=== PATIENT | male | born 1970 | race Caucasian/White ===

== ENCOUNTER → 2020-05-15 08:26 | Outpatient (BNVA) | payer MEDICAID, SELFPAY | PROVIDERS: PCP Internal Medicine; Visit Provider Anesthesiology | DX: Z79.899 Other long term (current) drug therapy (principal) | CPT/HCPCS: 99213 ==

== ENCOUNTER → 2020-05-20 14:33 | Outpatient (BNVA) | payer OTHER, SELFPAY ==
--- NOTE | 2020-05-20 | FL_ITS ---
EXAMINATION: XR FLUOROSCOPY CLINICAL INFORMATION: Osteoarthritis of the left shoulder COMPARISON: 12/07/2016 TECHNIQUE: 5 AP spot images of the right shoulder were submitted FLUOROSCOPY TIME: 0.4 minutes DOSE AREA PRODUCT: 1.37 Gy-cm2 (arndt-centimeter squared) FINDINGS/IMPRESSION: Initial images demonstrate placement of the needle in the region of the superior subscapularis recess with contrast material outlining the recess and potentially the overlying subcoracoid bursa. Subsequent images demonstrate a needle terminating in the region of the greater tuberosity near the insertion of the infraspinatus and teres minor muscles with associated contrast injection.
== END ==
PROVIDERS: PCP Internal Medicine; Visit Provider Anesthesiology
DX: M19.012 Primary osteoarthritis, left shoulder (principal)
CPT/HCPCS: 64417; J3300; Q9967

== ENCOUNTER 2020-05-27 08:47 | Emergency (ER) | payer OTHER, SELFPAY ==
[2020-05-27 09:04] VITALS: BP 140/107; PULSE 90; RESP 20; TEMP 36.3; O2SAT 96; BMI 44.8
--- NOTE | 2020-05-27 09:10 | PC.NURSE ---
PT STATES HE IS ON A PAIN MANAGEMENT PROGRAM.
--- NOTE | 2020-05-27 09:34 | PC.NURSE ---
PT TRANSFERED TO MAIN ED FOR FURTHER WORK UP.
--- NOTE | 2020-05-27 09:42 | ECG_ITS ---
Test Reason : DIZZY Blood Pressure : / mmHG Vent. Rate : 083 BPM Atrial Rate : 083 BPM P-R Int : 158 ms QRS Dur : 090 ms QT Int : 362 ms P-R-T Axes : -11 015 051 degrees QTc Int : 425 ms Normal sinus rhythm Nonspecific ST abnormality Inferior leads When compared with ECG of 10-MAR-2020 20:03, No significant change was found Referred By: Lacy Russell Electronically Signed By:CONCHA MCNULTY MD
--- NOTE | 2020-05-27 09:42 | CT_ITS ---
EXAMINATION: CT CHEST WITHOUT CONTRAST CLINICAL INFORMATION: Fall. Trauma. COMPARISON: Previous chest CT April 2019 and chest x-ray February 2020 TECHNIQUE: Multidetector volumetric CT imaging of the chest was done. Axial MIP volume rendering provided. Sagittal and coronal reformatted images were obtained. This CT examination was performed using dose optimization techniques as appropriate, variously including the following: *Automated exposure control *Adjustment of mA and/or kV according to patient size (this includes techniques or standardized protocols for targeted exams where dose is matched to indication/reason for exam; i.e. extremities or head) *Use of iterative reconstruction technique DLP: 826 mGy-cm FINDINGS: GRADES 1 THRU 6 HOME TEACHER: Unremarkable LUNGS: There is a 2 mm calcified left lower lobe nodule axial image 306 series 4 that is stable. There is subsegmental atelectasis at the lung bases. The lungs are otherwise clear. MEDIASTINUM: The heart does not appear enlarged. There is no pericardial effusion. There is minimal coronary artery calcification. The thoracic aorta is normal in caliber. There are no enlarged hilar or mediastinal lymph nodes. PLEURA: There is no pleural effusion. No pleural mass or thickening. AXILLA: No lymphadenopathy. UPPER ABDOMEN: Unremarkable. OSSEOUS STRUCTURES: There are degenerative changes of the spine. IMPRESSION: Small calcified left lower lobe nodule probably representing a calcified granuloma. Subsegmental atelectasis at the lung bases. The
--- NOTE | 2020-05-27 09:53 | ED_ITS ---
HPI - Back Pain/Injury General Chief Complaint: Dizziness Stated Complaint: back pain Time Seen by Provider: 05/27/20 09:18 Source: patient Mode of arrival: ambulatory Limitations: no limitations History of Present Illness HPI Narrative: 49-year-old male with a past medical history of anxiety, arthritis, COPD, degenerative joint disease, depression, gout, high cholesterol, hypertension, morbid obesity here with left upper back pain. The patient tells me on Tuesday he went to stand up and felt dizzy and fell forwards landing on his knees. He believes he hit his back on a table next to the couch. He did not hit his head or lose consciousness. He is not on anticoagulation. He is here with continued pain in the left upper back. He does have some shortness of breath which tells me is chronic for him and is unchanged from baseline. No cough, fevers or chills. He no longer feels dizzy. MD elicited complaint: back injury Pertinent past history: prior back pain and recent trauma Onset (ago): day(s) (3 days) Timing: constant Severity: moderate Similar Symptoms Previously: No Quality: throbbing Location: left upper back Radiation: none Exacerbating factors: movement, deep breaths and coughing/sneezing Relieving factors: immobilization Context: fall Associated symptoms: denies other symptoms Work related injury: No Related Data Home Medications Medication Instructions Recorded Confirmed bupropion HCl 100 mg tablet,12 hr 100 mg PO DAILY 05/17/20 05/20/20 sustained-release clotrimazole 1 % topical cream 1 applic TOPICAL BID 05/17/20 05/20/20 diphenhydramine HCl 25 mg capsule 25 mg PO Q6H PRN 05/17/20 05/20/20 fluticasone propionate 110 1 puff INHALATION Q12H 05/17/20 05/20/20 mcg/actuation HFA aerosol inhaler fluticasone propionate 50 1 spray INTRANASAL DAILY 05/17/20 05/20/20 mcg/actuation nasal spray,suspension magnesium oxide 400 mg PO DAILY 05/17/20 05/20/20 omeprazole 20 mg tablet,delayed 20 mg PO DAILY 05/17/20 05/20/20 release oxycodone 5 mg capsule 5 mg PO TID PRN 05/17/20 05/20/20 trazodone 100 mg tablet 100 mg PO BEDTIME PRN 05/17/20 05/20/20 venlafaxine 75 mg capsule,extended 75 mg PO BEDTIME 05/17/20 05/20/20 release 24 hr Previous Rx's Medication Instructions Recorded cyclobenzaprine 10 mg PO Q8H PRN #20 tab 05/27/20 lidocaine [Lidoderm] 1 patch TOPICAL DAILY #15 ea 05/27/20 naproxen 500 mg PO BID #20 tab 05/27/20 Allergies Allergy/AdvReac Type Severity Reaction Status Date / Time prednisone Allergy Unknown itching Verified 04/09/20 00:00 Vicodin Allergy Unknown nausea and Uncoded 04/09/20 00:00 vomiting From VICODIN AdvReac Mild STOMACH Uncoded 05/01/20 15:26 UPSET Review of Systems Review of Systems: Yes all other systems are reviewed and are negative Constitutional: Constitutional: Reports no additional constitutional complaints, Denies body ache(s), Denies chills, Denies fever(s), Denies headache(s) and Denies weakness Eyes: Eyes: Reports no additional eye complaints and Denies change in vision ENT: Reports system reviewed and no additional complaints, except as documented, Denies dizziness, Denies headache(s), Denies nasal congestion, Denies nasal discharge and Denies neck pain Cardiovascular: Cardiovascular: Reports no additional cardiovascular complaints, Denies chest pain, Denies leg edema and Denies dyspnea Respiratory: Respiratory: Reports no additional respiratory complaints, Denies cough and Denies dyspnea Gastrointestinal: Gastrointestinal: Reports no additional gastrointestinal complaints, Denies abdominal pain, Denies diarrhea, Denies nausea and Denies vomiting Genitourinary: Genitourinary: Denies urinary incontinence Musculoskeletal: Musculoskeletal: Reports no additional musculoskeletal complaints, Reports back pain, Denies arthralgias, Denies joint swelling, Denies neck pain, Denies numbness and Denies tingling Integumentary/Breasts: Skin/Breast: Reports system reviewed and no additional complaints, except as docu and Denies rash Neurologic: Reports system reviewed and no additional complaints, except as documented, Denies Abnormal speech present, Denies dizziness, Denies headache(s), Denies numbness, Denies tingling and Denies weakness PMFSH Past Medical History Attestation statement: The following information was validated with the patient. Source: nursing notes reviewed Medical History Anxiety Arthritis Asthma COPD (chronic obstructive pulmonary disease) Degenerative joint disease of low back Depression Emphysema of lung Gout Hiatal hernia Hypercholesterolemia Hypertension Morbid obesity Neuropathy Polyarthralgia Sciatica Family History Family History Father No problems noted. Mother Arthritis of knee Sister Obesity Son No problems noted. Daughter Psoriasis Manic depression Social History Social History Alcohol intake: current Alcohol intake frequency: holidays/special occasions only Alcohol type: beer Smoking Status: Current some day smoker Use of substances other than those prescribed or required for medical reasons: No Advance Directives: No Advance Directives Information Provided: Yes Physical Exam Vital Signs: Vital Signs: Vital Signs Temp Pulse Resp BP Pulse Ox 05/27/20 12:48 82 160/88 H 05/27/20 09:04 97.3 F 90 20 140/107 H 96 Body Mass Index 44.8 Const: Other: In pain General: cooperative, healthy appearing, comfortable and anxious Orientation/consciousness: patient oriented x3 Limitations: no limitations HENMT: Head: Yes normal to inspection Ears: hearing grossly normal bilaterally General nose exam: Normal external nose present Face and sinus: Yes normal facial exam Mouth: Normal oral and palatal mucosa present Throat: Yes posterior oropharynx normal Eyes: General: appearance normal, both eyes and all related structures Pupils: Equal, round and reactive pupils present Neck: Neck: Yes normal visual inspection Chest: Chest palpation & inspection: normal inspection of the chest Resp: Effort & Inspection: normal respiratory effort Auscultation: clear to auscultation bilaterally Cardio: Rate: regular rate Rhythm: regular rhythm Peripheral pulses: Peripheral pulses 2+ throughout GI: Inspection: Yes normal to inspection Palpation (GI): Soft to palpation and nontender Auscultation: normal bowel sounds Back/Spine/Pelvis: Other: Left upper and posterior ribs tender to palpation with no deformity, ecchymosis, crepitus. No midline tenderness over the spine. Thoracic/Lumbar Spine: thoracic and lumbar spine normal to inspection Skin: General skin exam: no rashes or lesions noted Neuro: General: patient oriented x3, no focal motor deficits and normal sensation to monofilament Cranial nerves: Yes Equal, round and reactive pupils present Cognition (Neuro): normal cognition Speech: No Abnormal speech present Gait exam (Neuro): Normal gait present Motor exam (neuro): 5/5 motor strength present throughout Extrem: General: Yes normal to inspection Course Course Course Narrative: Patient here with left upper back and rib pain status post mechanical fall. He does however tell me he had some mild dizziness prior to the fall. Will need labs, EKG, CT chest. 1415- Repeat magnesium and sodium improved after receiving her placement here in the ER. Imaging unremarkable and additional labs unremarkable. Patient reports feeling improved after receiving analgesia here and likely has a lumbar strain. Reviewed worrisome signs and symptoms and when to return to the emergency department. Comfortable discharge home. MDM - Back Pain/Injury MDM Narrative Medical decision making narrative: left posterior rib pain and upper back pain status post fall 3 days ago. Patient tells me he had dizziness with standing. There was no head injury or loss of consciousness. Will need imaging of chest To rule out underlying fracture /pulmonary contusion. Patient will also need labs, EKG, orthostatics to rule out underlying cause of dizziness. Considered ACS/NSTEMI, electrolyte abnormality, orthostasis, anemia. 1400- Less likely ACS with unremarkable EKG and troponin and symptoms greater than 3 days. Orthostatics negative. Labs show mild hyponatremia and hypo magnesium anemia which is improved with normal saline and IV magnesium. CT chest unremarkable for underlying pulmonary contusion or rib fracture. Lab Data Result diagrams: 05/27/20 10:05/27/20 12:44 Labs: Lab Results 05/27/20 05/27/20 05/27/20 Range/Units 10:22 10:22 10:22 WBC 16.0 H (4.8-10.8) X10*3/uL RBC 4.03 L (4.60-5.80) X10*6/uL Hgb 12.3 L (14.0-18.0) g/dl Hct 37.3 L (42-52) % MCV 92.6 (80-98) fL MCH 30.5 (27.0-33.0) pg MCHC 33.0 (31.0-36.0) g/dl RDW 12.6 (11.0-16.0) % Plt Count 328 (160-400) X10*3/uL MPV 9.3 L (9.4-12.4) fL Immature Gran % (Auto) 0.6 H (0.0-0.4) % Neut % (Auto) 75.1 H (45-73) % Lymph % (Auto) 14.9 L (20-40) % [place] % (Auto) 8.4 (2-11) % Eos % (Auto) 0.6 (0-4) % Baso % (Auto) 0.4 (0-2) % Lymph # (Auto) 2.4 (1.2-4.9) X10*3/uL [place] # (Auto) 1.4 H (0.1-1.2) X10*3/uL Eos # (Auto) 0.1 (0.0-0.4) X10*3/uL Baso # (Auto) 0.1 (0.0-0.2) X10*3/uL Abs Immat Gran (auto) 0.10 H (0.00-0.03) X10*3/uL Absolute Neuts (auto) 12.0 H (2.0-8.3) X10*3/uL Absolute Nucleated RBC 0.000 (0.0-0.012) X10*3/uL Nucleated RBC % (auto) 0.0 (0.0-0.2) /100WBC Hold Blue Top SEE NOTE Sodium 128 L (135-145) mmol/L Potassium 4.2 (3.3-5.1) mmol/l Chloride 96 (96-108) mmol/L Carbon Dioxide 23 (22-29) mmol/L Anion Gap 13 (12-20) BUN 24 H (9-16) mg/dL Creatinine 1.01 (0.5-1.4) mg/dL Estim Creat Clear Calc 137.8 Estimated GFR > 60 Random Glucose 106 (60-115) mg/dL Calcium 8.6 (8.4-10.2) mg/dL Magnesium 1.5 L (1.6-2.6) mg/dL Total Bilirubin 1.0 (0.0-1.0) mg/dL Direct Bilirubin 0.4 (0.0-0.5) mg/dL AST 32 (5-37) U/L ALT 35 (0-40) U/L Alkaline Phosphatase 111 (39-117) U/L Troponin I High Sens (<3.5-35.0) ng/L Total Protein 7.4 (6.5-8.0) g/dL Albumin 4.2 (3.5-5.0) g/dL 05/27/20 05/27/20 Range/Units 10:22 12:44 WBC (4.8-10.8) X10*3/uL RBC (4.60-5.80) X10*6/uL Hgb (14.0-18.0) g/dl Hct (42-52) % MCV (80-98) fL MCH (27.0-33.0) pg MCHC (31.0-36.0) g/dl RDW (11.0-16.0) % Plt Count (160-400) X10*3/uL MPV (9.4-12.4) fL Immature Gran % (Auto) (0.0-0.4) % Neut % (Auto) (45-73) % Lymph % (Auto) (20-40) % [place] % (Auto) (2-11) % Eos % (Auto) (0-4) % Baso % (Auto) (0-2) % Lymph # (Auto) (1.2-4.9) X10*3/uL [place] # (Auto) (0.1-1.2) X10*3/uL Eos # (Auto) (0.0-0.4) X10*3/uL Baso # (Auto) (0.0-0.2) X10*3/uL Abs Immat Gran (auto) (0.00-0.03) X10*3/uL Absolute Neuts (auto) (2.0-8.3) X10*3/uL Absolute Nucleated RBC (0.0-0.012) X10*3/uL Nucleated RBC % (auto) (0.0-0.2) /100WBC Hold Blue Top Sodium 131 L (135-145) mmol/L Potassium 4.2 (3.3-5.1) mmol/l Chloride 98 (96-108) mmol/L Carbon Dioxide 24 (22-29) mmol/L Anion Gap 13 (12-20) BUN 24 H (9-16) mg/dL Creatinine 1.03 (0.5-1.4) mg/dL Estim Creat Clear Calc 135.1 Estimated GFR > 60 Random Glucose 103 (60-115) mg/dL Calcium 8.8 (8.4-10.2) mg/dL Magnesium 2.8 H (1.6-2.6) mg/dL Total Bilirubin (0.0-1.0) mg/dL Direct Bilirubin (0.0-0.5) mg/dL AST (5-37) U/L ALT (0-40) U/L Alkaline Phosphatase (39-117) U/L Troponin I High Sens < 3.5 (<3.5-35.0) ng/L Total Protein (6.5-8.0) g/dL Albumin (3.5-5.0) g/dL Imaging Data ct chest: Attestation: I personally reviewed and interpreted this imaging study as follows: My impression: unremarkable Radiologist's impression: EXAMINATION: CT CHEST WITHOUT CONTRAST CLINICAL INFORMATION: Fall. Trauma. COMPARISON: Previous chest CT April 2019 and chest x-ray February 2020 TECHNIQUE: Multidetector volumetric CT imaging of the chest was done. Axial MIP volume rendering provided. Sagittal and coronal reformatted images were obtained. This CT examination was performed using dose optimization techniques as appropriate, variously including the following: *Automated exposure control *Adjustment of mA and/or kV according to patient size (this includes techniques or standardized protocols for targeted exams where dose is matched to indication/reason for exam; i.e. extremities or head) *Use of iterative reconstruction technique DLP: 826 mGy-cm FINDINGS: SOLAR INSTALLER: Unremarkable LUNGS: There is a 2 mm calcified left lower lobe nodule axial image 306 series 4 that is stable. There is subsegmental atelectasis at the lung bases. The lungs are otherwise clear. MEDIASTINUM: The heart does not appear enlarged. There is no pericardial effusion. There is minimal coronary artery calcification. The thoracic aorta is normal in caliber. There are no enlarged hilar or mediastinal lymph nodes. PLEURA: There is no pleural effusion. No pleural mass or thickening. AXILLA: No lymphadenopathy. UPPER ABDOMEN: Unremarkable. OSSEOUS STRUCTURES: There are degenerative changes of the spine. IMPRESSION: Small calcified left lower lobe nodule probably representing a calcified granuloma. Subsegmental atelectasis at the lung bases. The ECG Data Attestation: I personally reviewed and interpreted this ECG as follows: ECG interpretation date: 05/27/20 ECG interpretation time: 10:04 Interpretation: EKG shows normal sinus rhythm. Normal EKG. Normal p.r.. Normal QRS. Normal QT. No ST changes Discharge Plan Discharge Clinical Impression: Lumbar strain, Hypomagnesemia, Hyponatremia Patient Disposition: Home, Self-Care Instructions: Low Back Strain (ED) Additional Instructions: Heat or ice gentle stretching no heavy lifting or bending Prescriptions: New lidocaine [Lidoderm] 5 % adhesive patch,medicated 1 patch topical DAILY Qty: 15 RF: 0 naproxen 500 mg tablet 500 mg PO BID Qty: 20 RF: 0 cyclobenzaprine 10 mg tablet 10 mg PO Q8H PRN (Reason: muscle spasm) Qty: 20 RF: 0 No Action magnesium oxide 400 mg magnesium capsule 400 mg PO DAILY RF: 0 oxycodone 5 mg capsule 5 mg PO TID PRNRF: 0 bupropion HCl [Wellbutrin SR] 100 mg tablet sustained-release 12 hr 100 mg PO DAILY RF: 0 fluticasone propionate 50 mcg/actuation spray,suspension 1 spray intranasal DAILY RF: 0 Flovent HFA 110 mcg/actuation HFA aerosol inhaler 1 puff inhalation Q12H RF: 0 omeprazole 20 mg tablet,delayed release (DR/EC) 20 mg PO DAILY RF: 0 diphenhydramine HCl [Banophen] 25 mg capsule 25 mg PO Q6H PRNRF: 0 clotrimazole 1 % cream 1 applic topical BID RF: 0 trazodone 100 mg tablet 100 mg PO BEDTIME PRNRF: 0 venlafaxine [Effexor XR] 75 mg capsule,extended release 24hr 75 mg PO BEDTIME RF: 0 Referrals: Kaykay Rivas MD [Primary Care Provider] - 2 days Interventions: ED Discharge Assessment Last Done: 05/27/20 13:46 Discharge Date/Time: 05/27/20 13:57
[2020-05-27] MEDS: oxyCODONE HCl Immed Release 5 MG TABLET PO (10:04)
[2020-05-27] MEDS: Lidocaine 4 % Patch ADH..PATCH 1 PATCH TRANSDERMA (10:05)
[2020-05-27] MEDS: Cyclobenzaprine HCl 10 MG TABLET PO (10:14)
[2020-05-27 10:27] LABS: MANUAL DIFF FLAG NO
[2020-05-27 10:28] LABS: Basophils Absolute Auto 0.1 X10*3/uL (0.0-0.2); Basophils Percent Auto 0.4 % (0-2); Eosinophils Absolute Auto 0.1 X10*3/uL (0.0-0.4); Eosinophils Percent Auto 0.6 % (0-4); Hematocrit 37.3 % (42-52); Hemoglobin 12.3 g/dl (14.0-18.0); Imm Gran Pct Auto 0.6 % (0.0-0.4); Lymphocytes Absolute Auto 2.4 X10*3/uL (1.2-4.9); Lymphocytes Percent Auto 14.9 % (20-40); Mean Corpuscular Hemoglobin 30.5 pg (27.0-33.0); Mean Corpuscular Volume 92.6 fL (80-98); Mean Platelet Volume 9.3 fL (9.4-12.4); Monocytes Absolute Auto 1.4 X10*3/uL (0.1-1.2); Monocytes Percent Auto 8.4 % (2-11); Neutrophils Percent Auto 75.1 % (45-73); Platelet Count 328 X10*3/uL (160-400); Red Blood Count 4.03 X10*6/uL (4.60-5.80); Red Cell Distribution Width 12.6 % (11.0-16.0)
--- NOTE | 2020-05-27 10:57 | PC.NURSE ---
PT RETURN FROM CT SCAN VIA STRETCHER
[2020-05-27 11:02] LABS: Alanine Aminotransferase 35 U/L (0-40); Albumin Level 4.2 g/dL (3.5-5.0); Alkaline Phosphatase 111 U/L (39-117); Anion Gap 13 (12-20); Aspartate Amino Transferase 32 U/L (5-37); Bilirubin Direct 0.4 mg/dL (0.0-0.5); Blood Urea Nitrogen 24 mg/dL (9-16); Calcium 8.6 mg/dL (8.4-10.2); Carbon Dioxide 23 mmol/L (22-29); Chloride 96 mmol/L (96-108); Creatinine Clr Calc Pharmacy 137.8; Estimated Glomerular Filt Rate > 60; Glucose Random 106 mg/dL (60-115); Magnesium 1.5 mg/dL (1.6-2.6); Potassium 4.2 mmol/l (3.3-5.1); Sodium 128 mmol/L (135-145); Total Protein 7.4 g/dL (6.5-8.0)
[2020-05-27 11:09] LABS: Troponin-I High Sensitivity < 3.5 ng/L (<3.5-35.0)
[2020-05-27] MEDS: Magnesium Sulfate/H2O 2 GM/50 ML PIGGYBACK IV (11:16)
[2020-05-27 12:48] VITALS: BP 160/88; PULSE 82
[2020-05-27 13:14] LABS: Anion Gap 13 (12-20); Blood Urea Nitrogen 24 mg/dL (9-16); Calcium 8.8 mg/dL (8.4-10.2); Carbon Dioxide 24 mmol/L (22-29); Chloride 98 mmol/L (96-108); Creatinine Clr Calc Pharmacy 135.1; Estimated Glomerular Filt Rate > 60; Glucose Random 103 mg/dL (60-115); Potassium 4.2 mmol/l (3.3-5.1); Sodium 131 mmol/L (135-145)
[2020-05-27 13:34] LABS: Magnesium 2.8 mg/dL (1.6-2.6)
== END 2020-05-27 13:57 | disposition home or self-care (01) ==
PROVIDERS: Nurse Practitioner Family; Emergency Provider Emergency Medicine; PCP Internal Medicine
DX: S39.012A Strain of muscle, fascia and tendon of lower back, initial encounter (principal); W07.XXXA Fall from chair, initial encounter; E83.42 Hypomagnesemia; E87.1 Hypo-osmolality and hyponatremia; R42 Dizziness and giddiness; I10 Essential (primary) hypertension; F17.200 Nicotine dependence, unspecified, uncomplicated; Y93.89 Activity, other specified; Y92.019 Unspecified place in single-family (private) house as the place of occurrence of the external cause; Y99.9 Unspecified external cause status
CPT/HCPCS: 36415; 71250; 80048; 80076; 83735; 84484; 85025; 93005; 96365; 96366; 99284; J3475

== ENCOUNTER → 2020-06-16 16:20 | Outpatient (BNVA) | payer OTHER, SELFPAY | PROVIDERS: PCP Internal Medicine; Visit Provider Anesthesiology | DX: M19.012 Primary osteoarthritis, left shoulder (principal); M19.011 Primary osteoarthritis, right shoulder; M17.0 Bilateral primary osteoarthritis of knee; Z79.891 Long term (current) use of opiate analgesic | CPT/HCPCS: 99212 ==

== ENCOUNTER 2020-06-25 10:19 | Outpatient (REF) | payer OTHER, SELFPAY ==
--- NOTE | 2020-06-25 13:09 | MHC.AU.P13 ---
Hearing Aid Evaluation- Binaural Date of Visit: 06/25/2020 Booster Pump Operator Used: Not Applicable Description of Hearing: Normal hearing thresholds from 250-2000 Hz, dropping to a symmetrical moderate high frequency sensorineural hearing loss bilaterally. Hearing Instrument Selection: Right Ear: Roller Setter: Phonak Model: Audeo M 70-R Battery Size: Rechargeable Color: Graphite Acevedo Product Assurance Engineer: #2 Medium Type of Dome: Medium Open Left Ear: Roller Setter: Phonak Model: Audeo M 70-R Battery Size: Rechargeable Color: Graphite Acevedo Product Assurance Engineer: #2 Medium Type of Dome: Medium Open Recommendations: Recommendations: Medical Clearance and Audiogram provided by ENT Dr. Mohan Alvarez. Discussed realistic expectations of hearing aids, the need to wear aids everyday, all day. [facility] prior hearing aid history faxed.' Due to patient's significant dexterity problems related to hand surgery and arthritis, as well as perspiration, recommend rechargeable hearing aids. Scheduled HAF for 07/09/2020 Diagnosis Code(s): Primary Diagnosis: H90.3 Bilateral Sensorineural Hearing Loss Secondary Diagnosis: H93.13 Tinnitus, Bilateral Services Performed: Hearing Aid Evaluation: Signature: Provider: Juanita Mo, [facility]
== END 2020-06-25 10:20 | disposition home or self-care (01) ==
LOC: HO.HAP 10:19
PROVIDERS: PCP Internal Medicine; Referring Provider Internal Medicine; Visit Provider Internal Medicine
DX: Z46.1 Encounter for fitting and adjustment of hearing aid (principal)
CPT/HCPCS: 92591

== ENCOUNTER → 2020-06-30 08:23 | Outpatient (BNVA) | payer OTHER, SELFPAY | PROVIDERS: PCP Internal Medicine; Visit Provider Anesthesiology | DX: M19.012 Primary osteoarthritis, left shoulder (principal); M19.011 Primary osteoarthritis, right shoulder; M17.0 Bilateral primary osteoarthritis of knee; Z79.891 Long term (current) use of opiate analgesic | CPT/HCPCS: 99212 ==

== ENCOUNTER 2020-07-09 09:54 | Outpatient (REF) | payer MEDICAID, SELFPAY | END 2020-07-09 09:55 | disposition home or self-care (01) | LOC: HO.HAP 09:54 | PROVIDERS: PCP Internal Medicine; Referring Provider Internal Medicine; Visit Provider Internal Medicine | DX: Z46.1 Encounter for fitting and adjustment of hearing aid (principal) | CPT/HCPCS: 92595; V5011; V5020; V5160; V5261 ==

== ENCOUNTER → 2020-07-28 08:32 | Outpatient (BNVA) | payer MEDICAID, SELFPAY | PROVIDERS: PCP Family Medicine; Visit Provider Anesthesiology | DX: M19.012 Primary osteoarthritis, left shoulder (principal); M19.011 Primary osteoarthritis, right shoulder; F11.90 Opioid use, unspecified, uncomplicated; M17.0 Bilateral primary osteoarthritis of knee | CPT/HCPCS: 99212 ==

== ENCOUNTER → 2020-08-28 08:26 | Outpatient (BNVA) | payer MEDICAID, SELFPAY | PROVIDERS: PCP Family Medicine; Visit Provider Anesthesiology | DX: F11.90 Opioid use, unspecified, uncomplicated (principal); M19.012 Primary osteoarthritis, left shoulder; M17.0 Bilateral primary osteoarthritis of knee; M19.011 Primary osteoarthritis, right shoulder | CPT/HCPCS: 99212 ==

== ENCOUNTER 2020-09-09 06:27 | Outpatient (REF) | payer MEDICAID, SELFPAY ==
--- NOTE | 2020-09-09 07:35 | FL_ITS ---
EXAMINATION: XR FLUOROSCOPY WITH IMAGES CLINICAL INFORMATION: M19.012 - Primary osteoarthritis, left shoulder COMPARISON: None. TECHNIQUE: Fluoroscopy performed by Shalini Stanley NP. Fluoroscopy time: 0.5 minutes DAP: 2.34 Gycm2 Images: 2 FINDINGS: There are needles overlying the superomedial aspect bilateral shoulder joints from posterior approach with contrast adjacent to the needle tip, likely early intracapsular. FL/FL guidance in treatment room IMPRESSION: Fluoroscopy for pain management procedures.
== END 2020-09-09 06:28 | disposition home or self-care (01) ==
LOC: HO.RADIR 06:27
PROVIDERS: Visit Provider Anesthesiology
DX: M19.012 Primary osteoarthritis, left shoulder (principal); M17.0 Bilateral primary osteoarthritis of knee; M19.011 Primary osteoarthritis, right shoulder; F11.90 Opioid use, unspecified, uncomplicated; F17.200 Nicotine dependence, unspecified, uncomplicated
CPT/HCPCS: 20610; J3300; Q9967

== ENCOUNTER 2020-09-10 08:58 | Outpatient (REF) | payer MEDICAID, SELFPAY ==
--- NOTE | 2020-09-10 09:23 | XR_ITS ---
EXAMINATION: XR HAND, RIGHT CLINICAL INFORMATION: Right hand pain. COMPARISON: Right hand radiographs dated 03/28/2017. TECHNIQUE: PA, lateral, and oblique views of the right hand. FINDINGS: No acute fracture or dislocation. Chronic deformity at the base of the 2nd proximal phalanx with associated orthopedic screws, consistent with a remote fracture. Complete osseous bridging across the previously seen fracture line. Moderate degenerative arthritis at the 1st carpometacarpal joint with more mild degenerative arthritis at the triscaphe joint. Degenerative changes scattered throughout the metacarpophalangeal and interphalangeal joints, most prominent at the 1st and 3rd metacarpophalangeal joints, slightly progressed when compared to the prior examination. XR/XR hand RT min 3V IMPRESSION: Healed fracture with associated orthopedic screws at the base of the 2nd proximal phalanx. No evidence of hardware complication. Mild degenerative arthritis at the 1st carpometacarpal joint as well as more mild degenerative arthritis at the triscaphe joint. Additional degenerative arthritis scattered throughout the metacarpophalangeal and interphalangeal joints. Findings have slightly progressed when compared to the prior examination.
== END 2020-09-10 08:59 | disposition home or self-care (01) ==
LOC: HO.HOSX 08:58
PROVIDERS: PCP Internal Medicine; Visit Provider Orthopaedic Surgery
DX: M25.541 Pain in joints of right hand (principal)
CPT/HCPCS: 73130

== ENCOUNTER → 2020-09-17 10:20 | Outpatient (BNVA) | payer MEDICAID, SELFPAY | PROVIDERS: PCP Internal Medicine; Visit Provider Physician Assistant ==

== ENCOUNTER 2020-09-30 11:20 | Outpatient (REF) | payer MEDICAID, SELFPAY ==
--- NOTE | ~2020-09-30 | US_ITS ---
EXAMINATION: US RETROPERITONEAL LIMITED (RENAL ONLY) CLINICAL INFORMATION: Unspecified abdominal pain. COMPARISON: CT abdomen and pelvis 09/12/2019. TECHNIQUE: Real-time imaging of the kidneys. FINDINGS: RIGHT KIDNEY: 13.8 x 5.8 x 5.2 cm (SAG x AP x TRV). The kidney is normal in size, contour, and echogenicity. Renal cortical thickness is normal. No calculi or focal parenchymal lesions. No hydronephrosis. LEFT KIDNEY: 11.8 x 6.7 x 6.4 cm (SAG x AP x TRV). The kidney is normal in size, contour, and echogenicity. Renal cortical thickness is normal. No renal calculi or hydronephrosis. There is a small cyst interpolar region measuring under 2 cm. US/US renal BI IMPRESSION: 1. No hydronephrosis or calculi. 2. Small cyst left kidney, 1.9 x 1.5 x 1.7 cm.
== END 2020-09-30 11:21 | disposition home or self-care (01) ==
LOC: HO.US 11:20
PROVIDERS: PCP Internal Medicine; Visit Provider Internal Medicine
DX: R10.9 Unspecified abdominal pain (principal)
CPT/HCPCS: 76775

== ENCOUNTER → 2020-10-01 08:09 | Outpatient (BNVA) | payer MEDICAID, SELFPAY | PROVIDERS: PCP Internal Medicine Rheumatology; Visit Provider Anesthesiology | DX: F11.90 Opioid use, unspecified, uncomplicated (principal); M19.012 Primary osteoarthritis, left shoulder; M17.0 Bilateral primary osteoarthritis of knee; M19.011 Primary osteoarthritis, right shoulder | CPT/HCPCS: 99212 ==

== ENCOUNTER 2020-10-09 19:09 | Emergency (ER) | payer MEDICAID, SELFPAY ==
--- NOTE | ~2020-10-09 | CT_ITS ---
EXAMINATION: CT ANGIOGRAM OF THE CHEST WITH AND WITHOUT CONTRAST (CT PULMONARY ANGIOGRAM FOR PE) CLINICAL INFORMATION: Reason for Exam Tachypnea, tachycardia, elevated D-dimer COMPARISON: 05/27/2020 TECHNIQUE: Prior to contrast administration, noncontrast localization images were obtained. Subsequently, multidetector volumetric imaging was performed from the thoracic inlet to below the diaphragms following the administration of 130 mL Omnipaque 350 intravenous contrast. 2 acquisitions were performed. No contrast reaction reported Sagittal, coronal, and MIP oblique sagittal reformatted images were obtained on the CT workstation, uploaded to PACS, and reviewed. This CT examination was performed using dose optimization techniques as appropriate, variously including the following: *Automated exposure control *Adjustment of mA and/or kV according to patient size (this includes techniques or standardized protocols for targeted exams where dose is matched to indication/reason for exam; i.e. extremities or head) *Use of iterative reconstruction technique Total exam dose-length product 1261 mGy-cm FINDINGS: QUALITY OF STUDY/CONTRAST BOLUS: Satisfactory. PULMONARY ARTERIES: No central or segmental pulmonary emboli. THORACIC AORTA: No aneurysm or dissection. LUNG: No focal consolidation, nodules or masses. The central airways are patent. PLEURA: No pleural effusion or pneumothorax. MEDIASTINUM: Normal heart size. No pericardial effusion. No hilar or mediastinal lymphadenopathy. No evidence of septal bowing or right heart strain. CHEST WALL/AXILLA: No axillary or internal mammary lymphadenopathy. Gynecomastia. OSSEOUS STRUCTURES: No acute or suspicious osseous abnormality. Mild degenerative changes of the spine. UPPER ABDOMEN: Unremarkable. No reflux of contrast into the hepatic veins to suggest elevated right heart pressures. CT/CT angio chest PE protocol IMPRESSION: No pulmonary embolism or other acute intrathoracic abnormality. VTE: negative
[2020-10-09 19:16] VITALS: BP 126/83; PULSE 106; RESP 24; TEMP 36.6; O2SAT 97; BMI 42.0
--- NOTE | 2020-10-09 19:18 | ECG_ITS ---
Test Reason : DYSPNEA Blood Pressure : / mmHG Vent. Rate : 092 BPM Atrial Rate : 092 BPM P-R Int : 174 ms QRS Dur : 090 ms QT Int : 436 ms P-R-T Axes : 008 018 065 degrees QTc Int : 539 ms Normal sinus rhythm ST & T wave abnormality, consider lateral ischemia Abnormal ECG When compared with ECG of 27-MAY-2020 10:04, ST now depressed in Anterior leads T wave inversion now evident in Lateral leads QT has lengthened Referred By: Shashank Reynoso Electronically Signed By:BRITTANY RIBERA MD
--- NOTE | 2020-10-09 19:29 | ED.ALCOHOL ---
HPI - Alcohol General Chief Complaint: ETOH/Substance Use Stated Complaint: NAUSEA VOMITING Time Seen by Provider: 10/09/20 19:16 Source: patient Mode of arrival: EMS Limitations: no limitations History of Present Illness HPI narrative: Patient alcoholic with history of anxiety take Klonopin 2 mg twice daily ran out of his his medications 3 days ago and had last drink 2 days ago feeling very shaky anxious vomiting multiple times no diarrhea no significant abdominal pain patient and any chest pain no shortness of breath no fever no chills MD complaint: alcohol withdrawal and alcohol dependence Last drink: Days (ago) (2) Chronic alcohol use: Yes Previous visits for alcohol intoxication: No Associated symptoms: nausea and vomiting Related Data Home Medications Medication Instructions Recorded Confirmed bupropion HCl 100 mg tablet,12 hr 100 mg PO DAILY 05/17/20 10/01/20 sustained-release clotrimazole 1 % topical cream 1 applic TOPICAL BID 05/17/20 10/01/20 diphenhydramine HCl 25 mg capsule 25 mg PO Q6H PRN 05/17/20 10/01/20 fluticasone propionate 110 1 puff INHALATION Q12H 05/17/20 10/01/20 mcg/actuation HFA aerosol inhaler fluticasone propionate 50 1 spray INTRANASAL DAILY 05/17/20 10/01/20 mcg/actuation nasal spray,suspension magnesium oxide 400 mg PO DAILY 05/17/20 10/01/20 omeprazole 20 mg tablet,delayed 20 mg PO DAILY 05/17/20 10/01/20 release trazodone 100 mg tablet 100 mg PO BEDTIME PRN 05/17/20 10/01/20 venlafaxine 75 mg capsule,extended 75 mg PO BEDTIME 05/17/20 10/01/20 release 24 hr atorvastatin 40 mg tablet 40 mg PO DAILY 09/17/20 10/01/20 docusate sodium 100 mg capsule 100 mg PO DAILY 09/17/20 10/01/20 doxycycline hyclate 100 mg capsule 100 mg PO DAILY 09/17/20 10/01/20 folic acid 1 mg tablet 1 mg PO DAILY 09/17/20 10/01/20 hydrochlorothiazide 25 mg tablet 25 mg PO DAILY 09/17/20 10/01/20 lisinopril 40 mg tablet 40 mg PO DAILY 09/17/20 10/01/20 verapamil 200 mg capsule 24hr 200 mg PO BEDTIME 09/17/20 10/01/[address],ext.release clonazepam 2 mg tablet 2 mg PO BID 10/01/20 10/01/20 naloxone 4 mg/actuation nasal spray 4 mg INTRANASAL Q2M PRN 10/01/20 10/01/20 Previous Rx's Medication Instructions Recorded cyclobenzaprine 10 mg PO Q8H PRN #20 tab 05/27/20 lidocaine [Lidoderm] 1 patch TOPICAL DAILY #15 ea 05/27/20 naproxen 500 mg PO BID #20 tab 05/27/20 bisacodyl 10 mg rectal suppository 10 mg TX DAILY PRN #20 ea 09/17/20 polyethylene glycol 3350 17 238 g PO ONCE 1 Days #238 g 09/17/20 gram/dose oral powder oxycodone 5 mg tablet 5 mg PO Q6H PRN 30 Days #120 tab 10/01/20 magnesium oxide 400 mg PO BID #60 cap 10/10/20 Allergies Allergy/AdvReac Type Severity Reaction Status Date / Time prednisone Allergy Unknown itching Verified 10/01/20 08:19 Vicodin Allergy Unknown nausea and Uncoded 04/09/20 00:00 vomiting Review of Systems Review of Systems: Constitutional : No Weight loss, No Fever, No Chills ENT/Mouth : No sore throat, No Rhinorrhea Eyes: No Eye Pain, No Swelling Cardiovascular : No Chest Pain, no palpitations Respiratory : No Cough, No Sputum, no shortness of breath Gastrointestinal : ++ Nausea, ++ Vomiting, No Diarrhea, No abdominal Pain, no black stools Genitourinary : No Dysuria, No Urinary Frequency Musculoskeletal : No joint pain, No Myalgias, No Joint Swelling Skin : No Skin Lesions, No rash Neuro : No Weakness, No Numbness, No Dizziness, No Headache Psych :++Anxiety/Panic, No Depression Heme/Lymph: No Bruising, No Lymphadenopathy Endocrine : No Polyuria, No Polydipsia All other systems reviewed and are negative [facility] Past Medical History Medical History Anxiety Arthritis Asthma COPD (chronic obstructive pulmonary disease) Degenerative joint disease of low back Depression Emphysema of lung Gout Hiatal hernia Hypercholesterolemia Hypertension Morbid obesity Neuropathy Polyarthralgia Sciatica Family History Family History Father No problems noted. Mother Arthritis of knee Sister Obesity Son No problems noted. Daughter Psoriasis Manic depression Social History Social History Household Members: None Alcohol intake: current Alcohol intake frequency: holidays/special occasions only Alcohol type: beer Smoking Status: Current some day smoker Advance Directives: No Current occupational status: unemployed Current occupation: Left Handed Physical Exam Vital Signs: Vital Signs: Last Vital Signs Temp 97.9 F 10/10/20 01:10 Pulse 85 10/10/20 01:10 Resp 20 10/10/20 01:10 BP 107/67 10/10/20 01:10 Pulse Ox 96 10/10/20 01:10 Body Mass Index 42.0 Const: General: no acute distress and well developed Orientation/consciousness: patient oriented x3 HENMT: Head: Yes normocephalic Eyes: General: appearance normal, both eyes and all related structures Neck: Neck: Yes normal visual inspection Thyroid: Thyroid normal Resp: Effort & Inspection: normal respiratory effort Auscultation: clear to auscultation bilaterally, no crackles, no rales and no rhonchi Cardio: Jugular venous distension: no JVD Rate: tachycardic Heart sounds: S1 normal heart sound present and S2 normal heart sound present Bruits: Abdominal aortic bruit present Peripheral pulses: Peripheral pulses 2+ throughout GI: Inspection: Yes normal to inspection Palpation (GI): Abdominal aortic bruit present, not soft, not firm and nontender : General: Yes no CVA tenderness Back/Spine/Pelvis: Back: no CVA tenderness Thoracic/Lumbar Spine: thoracic and lumbar spine normal to inspection Skin: General skin exam: no rashes or lesions noted Neuro: General: patient oriented x3 and no focal motor deficits Extrem: General: Yes normal to inspection, Yes no calf tenderness, Yes normal gait and No pedal edema Psych: Appearance: grossly normal Mental Status: mental status grossly normal Speech and movement: Normal speech and movement present Course Reevaluation(s) Reevaluation #1: Patient feeling much better now no chest pain repeat EKG without any ischemic changes showed LV strain pattern repeat chemistry pending Time: 01:52 Reevaluation #2: Patient repeat chemistry still shows potassium of 2.8 and magnesium of less than 0.7 will give him 4 g of magnesium and 40 mg of IV potassium recheck his chemistry in the morning Time: 01:58 MDM - Alcohol MDM Narrative Medical decision making narrative: Patient's alcohol withdrawal and dietary feeling much better after IV fluids and benzos also noticed to have magnesium of less than 0.6 and potassium of 2.8 which was replaced patient refused to go to detox at this time would like to go home continue his medications patient is taking p.o. fluids without any significant vomiting. Patient does not have any transport to go home. Will repeat chemistry now Differential Diagnosis Differential diagnosis: Likely alcohol dependence and alcohol withdrawal delirium Medical Records Attestation: I reviewed the patient's medical records. Lab Data Attestation: I reviewed the patient's lab results. Result diagrams: 10/09/20 19:53 10/10/20 01:15 Labs: Lab Results 10/09/20 10/09/20 10/09/20 Range/Units 19:53 19:53 19:53 WBC 17.3 H (4.8-10.8) X10*3/uL RBC 4.60 (4.60-5.80) X10*6/uL Hgb 14.1 (14.0-18.0) g/dl Hct 40.2 L (42-52) % MCV 87.4 (80-98) fL MCH 30.7 (27.0-33.0) pg MCHC 35.1 (31.0-36.0) g/dl RDW 12.9 (11.0-16.0) % Plt Count 374 (160-400) X10*3/uL MPV 10.2 (9.4-12.4) fL Immature Gran % (Auto) 0.6 H (0.0-0.4) % Neut % (Auto) 83.2 H (45-73) % Lymph % (Auto) 11.8 L (20-40) % [place] % (Auto) 4.1 (2-11) % Eos % (Auto) 0.1 (0-4) % Baso % (Auto) 0.2 (0-2) % Lymph # (Auto) 2.1 (1.2-4.9) X10*3/uL [place] # (Auto) 0.7 (0.1-1.2) X10*3/uL Eos # (Auto) 0.0 (0.0-0.4) X10*3/uL Baso # (Auto) 0.0 (0.0-0.2) X10*3/uL Abs Immat Gran (auto) 0.10 H (0.00-0.03) X10*3/uL Absolute Neuts (auto) 14.4 H (2.0-8.3) X10*3/uL Absolute Nucleated RBC 0.000 (0.0-0.012) X10*3/uL Nucleated RBC % (auto) 0.0 (0.0-0.2) /100WBC PT 15.2 H (10.8-13.0) SEC INR 1.3 H (0.9-1.1) APTT 30.4 (24.1-38.0) SEC D-Dimer 3938 NG/ML Sodium 141 (135-145) mmol/L Potassium 2.8 L (3.3-5.1) mmol/L Chloride 97 (96-108) mmol/L Carbon Dioxide 28 (22-29) mmol/L Anion Gap 19 (12-20) BUN 24 H (9-16) mg/dL Creatinine 1.50 H (0.5-1.4) mg/dL Estim Creat Clear Calc 88.6 Estimated GFR 49 Random Glucose 144 H D (60-115) mg/dL Calcium 8.6 (8.4-10.2) mg/dL Magnesium < 0.6 L* (1.6-2.6) mg/dL Total Bilirubin 1.0 (0.0-1.0) mg/dL Direct Bilirubin 0.4 (0.0-0.5) mg/dL AST 51 H (5-37) U/L ALT 56 H (0-40) U/L Alkaline Phosphatase 130 H (39-117) U/L Troponin I High Sens (<3.5-35.0) ng/L Total Protein 7.9 (6.5-8.0) g/dL Albumin 4.5 (3.5-5.0) g/dL Lipase (8-78) U/L Ethyl Alcohol mg/dL COVID-19 ([facility]) (Negative) COVID-19 Clin Com 10/09/20 10/09/20 10/09/20 Range/Units 19:53 19:53 21:19 WBC (4.8-10.8) X10*3/uL RBC (4.60-5.80) X10*6/uL Hgb (14.0-18.0) g/dl Hct (42-52) % MCV (80-98) fL MCH (27.0-33.0) pg MCHC (31.0-36.0) g/dl RDW (11.0-16.0) % Plt Count (160-400) X10*3/uL MPV (9.4-12.4) fL Immature Gran % (Auto) (0.0-0.4) % Neut % (Auto) (45-73) % Lymph % (Auto) (20-40) % [place] % (Auto) (2-11) % Eos % (Auto) (0-4) % Baso % (Auto) (0-2) % Lymph # (Auto) (1.2-4.9) X10*3/uL [place] # (Auto) (0.1-1.2) X10*3/uL Eos # (Auto) (0.0-0.4) X10*3/uL Baso # (Auto) (0.0-0.2) X10*3/uL Abs Immat Gran (auto) (0.00-0.03) X10*3/uL Absolute Neuts (auto) (2.0-8.3) X10*3/uL Absolute Nucleated RBC (0.0-0.012) X10*3/uL Nucleated RBC % (auto) (0.0-0.2) /100WBC PT (10.8-13.0) SEC INR (0.9-1.1) APTT (24.1-38.0) SEC D-Dimer NG/ML Sodium (135-145) mmol/L Potassium (3.3-5.1) mmol/L Chloride (96-108) mmol/L Carbon Dioxide (22-29) mmol/L Anion Gap (12-20) BUN (9-16) mg/dL Creatinine (0.5-1.4) mg/dL Estim Creat Clear Calc Estimated GFR Random Glucose (60-115) mg/dL Calcium (8.4-10.2) mg/dL Magnesium (1.6-2.6) mg/dL Total Bilirubin (0.0-1.0) mg/dL Direct Bilirubin (0.0-0.5) mg/dL AST (5-37) U/L ALT (0-40) U/L Alkaline Phosphatase (39-117) U/L Troponin I High Sens (<3.5-35.0) ng/L Total Protein (6.5-8.0) g/dL Albumin (3.5-5.0) g/dL Lipase 18 (8-78) U/L Ethyl Alcohol < 10 mg/dL COVID-19 ([facility]) Negative (Negative) COVID-19 Clin Com See Note 10/10/20 10/10/20 Range/Units 01:15 01:15 WBC (4.8-10.8) X10*3/uL RBC (4.60-5.80) X10*6/uL Hgb (14.0-18.0) g/dl Hct (42-52) % MCV (80-98) fL MCH (27.0-33.0) pg MCHC (31.0-36.0) g/dl RDW (11.0-16.0) % Plt Count (160-400) X10*3/uL MPV (9.4-12.4) fL Immature Gran % (Auto) (0.0-0.4) % Neut % (Auto) (45-73) % Lymph % (Auto) (20-40) % [place] % (Auto) (2-11) % Eos % (Auto) (0-4) % Baso % (Auto) (0-2) % Lymph # (Auto) (1.2-4.9) X10*3/uL [place] # (Auto) (0.1-1.2) X10*3/uL Eos # (Auto) (0.0-0.4) X10*3/uL Baso # (Auto) (0.0-0.2) X10*3/uL Abs Immat Gran (auto) (0.00-0.03) X10*3/uL Absolute Neuts (auto) (2.0-8.3) X10*3/uL Absolute Nucleated RBC (0.0-0.012) X10*3/uL Nucleated RBC % (auto) (0.0-0.2) /100WBC PT (10.8-13.0) SEC INR (0.9-1.1) APTT (24.1-38.0) SEC D-Dimer NG/ML Sodium 139 (135-145) mmol/L Potassium 2.8 L (3.3-5.1) mmol/L Chloride 99 (96-108) mmol/L Carbon Dioxide 27 (22-29) mmol/L Anion Gap 16 (12-20) BUN 24 H (9-16) mg/dL Creatinine 1.28 (0.5-1.4) mg/dL Estim Creat Clear Calc 103.8 Estimated GFR 59 Random Glucose 94 (60-115) mg/dL Calcium 8.0 L D (8.4-10.2) mg/dL Magnesium < 0.7 L* (1.6-2.6) mg/dL Total Bilirubin (0.0-1.0) mg/dL Direct Bilirubin (0.0-0.5) mg/dL AST (5-37) U/L ALT (0-40) U/L Alkaline Phosphatase (39-117) U/L Troponin I High Sens 11.8 D (<3.5-35.0) ng/L Total Protein (6.5-8.0) g/dL Albumin (3.5-5.0) g/dL Lipase (8-78) U/L Ethyl Alcohol mg/dL COVID-19 ([facility]) (Negative) COVID-19 Clin Com ECG Data Attestation: I personally reviewed and interpreted this ECG as follows: Interpretation: Normal sinus rhythm heart rate 92 beats per minute normal intervals normal axis slight ST segment abnormality in lateral leads suggestive of LV strain pattern Discharge Plan Discharge Clinical Impression: Hypomagnesemia, Anxiety, Acute hypokalemia Alcohol withdrawal Qualifiers: Complication of substance-induced condition: uncomplicated Qualified Code(s): F10.230 - Alcohol dependence with withdrawal, uncomplicated Patient Disposition: Home, Self-Care Instructions: Anxiety (ED), Alcohol Dependence (ED) Additional Instructions: Stop drinking alcohol take your medication as prescribed. And follow-up with your therapist/PCP Prescriptions: New magnesium oxide 400 mg magnesium capsule 400 mg PO BID Qty: 60 RF: 0 No Action lidocaine [Lidoderm] 5 % adhesive patch,medicated 1 patch topical DAILY Qty: 15 RF: 0 naproxen 500 mg tablet 500 mg PO BID Qty: 20 RF: 0 cyclobenzaprine 10 mg tablet 10 mg PO Q8H PRN (Reason: muscle spasm) Qty: 20 RF: 0 doxycycline hyclate 100 mg capsule 100 mg PO DAILY RF: 0 lisinopril 40 mg tablet 40 mg PO DAILY RF: 0 folic acid 1 mg tablet 1 mg PO DAILY RF: 0 verapamil 200 mg capsule, [address] 200 mg PO BEDTIME RF: 0 docusate sodium [Colace] 100 mg capsule 100 mg PO DAILY RF: 0 atorvastatin 40 mg tablet 40 mg PO DAILY RF: 0 hydrochlorothiazide 25 mg tablet 25 mg PO DAILY RF: 0 polyethylene glycol 3350 [Miralax] 17 gram/dose powder 238 g PO ONCE 1 Days Qty: 238 RF: 0 bisacodyl [Dulcolax (bisacodyl)] 10 mg suppository 10 mg TX DAILY PRN (Reason: constipation) Qty: 20 RF: 0 magnesium oxide 400 mg magnesium capsule 400 mg PO DAILY RF: 0 bupropion HCl [Wellbutrin SR] 100 mg tablet sustained-release 12 hr 100 mg PO DAILY RF: 0 fluticasone propionate 50 mcg/actuation spray,suspension 1 spray intranasal DAILY RF: 0 Flovent HFA 110 mcg/actuation HFA aerosol inhaler 1 puff inhalation Q12H RF: 0 omeprazole 20 mg tablet,delayed release (DR/EC) 20 mg PO DAILY RF: 0 diphenhydramine HCl [Banophen] 25 mg capsule 25 mg PO Q6H PRNRF: 0 clotrimazole 1 % cream 1 applic topical BID RF: 0 trazodone 100 mg tablet 100 mg PO BEDTIME PRNRF: 0 venlafaxine [Effexor XR] 75 mg capsule,extended release 24hr 75 mg PO BEDTIME RF: 0 clonazepam 2 mg tablet 2 mg PO BID RF: 0 Narcan 4 mg/actuation spray,non-aerosol 4 mg intranasal Q2M PRNRF: 0 oxycodone 5 mg tablet 5 mg PO Q6H PRN (Reason: pain) 30 Days Qty: 120 RF: 0
[2020-10-09] MEDS: LORazepam 2 MG/ML VIAL IVPUSH ×2 (19:33→20:56)
[2020-10-09] MEDS: 0.9 % Sodium Chloride 1,000 ML 999 ML IVCONT ×2 (19:33→20:52)
[2020-10-09] MEDS: ondansetron HCL 4 MG/2 ML VIAL IVPUSH (19:37)
[2020-10-09 19:48] VITALS: BP 122/88; PULSE 93; RESP 21; TEMP 36.6; O2SAT 98
[2020-10-09 19:58] LABS: MANUAL DIFF FLAG NO
[2020-10-09 19:59] VITALS: BP 111/84; PULSE 94; RESP 15; O2SAT 98
[2020-10-09 19:59] LABS: Basophils Percent Auto 0.2 % (0-2); Eosinophils Percent Auto 0.1 % (0-4); Hematocrit 40.2 % (42-52); Hemoglobin 14.1 g/dl (14.0-18.0); Imm Gran Pct Auto 0.6 % (0.0-0.4); Lymphocytes Absolute Auto 2.1 X10*3/uL (1.2-4.9); Lymphocytes Percent Auto 11.8 % (20-40); Mean Corpuscular HGB Conc 35.1 g/dl (31.0-36.0); Mean Corpuscular Hemoglobin 30.7 pg (27.0-33.0); Mean Corpuscular Volume 87.4 fL (80-98); Mean Platelet Volume 10.2 fL (9.4-12.4); Monocytes Absolute Auto 0.7 X10*3/uL (0.1-1.2); Monocytes Percent Auto 4.1 % (2-11); Neutrophils Absolute Auto 14.4 X10*3/uL (2.0-8.3); Neutrophils Percent Auto 83.2 % (45-73); Platelet Count 374 X10*3/uL (160-400); Red Cell Distribution Width 12.9 % (11.0-16.0); White Blood Count 17.3 X10*3/uL (4.8-10.8)
[2020-10-09 20:07] LABS: INTERNATIONAL NORM RATIO 1.3 (0.9-1.1); Prothrombin Time 15.2 SEC (10.8-13.0)
[2020-10-09 20:17] LABS: D Dimer 3938 NG/ML
[2020-10-09 20:23] LABS: Lipase 18 U/L (8-78)
[2020-10-09 20:25] LABS: Alanine Aminotransferase 56 U/L (0-40); Albumin Level 4.5 g/dL (3.5-5.0); Alkaline Phosphatase 130 U/L (39-117); Anion Gap 19 (12-20); Aspartate Amino Transferase 51 U/L (5-37); Bilirubin Direct 0.4 mg/dL (0.0-0.5); Blood Urea Nitrogen 24 mg/dL (9-16); Calcium 8.6 mg/dL (8.4-10.2); Carbon Dioxide 28 mmol/L (22-29); Chloride 97 mmol/L (96-108); Creatinine Clr Calc Pharmacy 88.6; Estimated Glomerular Filt Rate 49; Glucose Random 144 mg/dL (60-115); Potassium 2.8 mmol/L (3.3-5.1); Sodium 141 mmol/L (135-145); Total Protein 7.9 g/dL (6.5-8.0)
[2020-10-09 20:39] LABS: Magnesium < 0.6 mg/dL (1.6-2.6)
[2020-10-09] MEDS: Magnesium Sulfate/H2O 2 GM/50 ML PIGGYBACK IV (20:52)
[2020-10-09 20:58] VITALS: BP 123/84; PULSE 86; RESP 15; O2SAT 97
[2020-10-09 21:00] LABS: Partial Thromboplastin Time 30.4 SEC (24.1-38.0)
[2020-10-09 21:39] LABS: COVID-19 Test Negative (Negative)
[2020-10-09] MEDS: Potassium Chloride/H20 10 MEQ/100 ML PIGGYBACK 100 MEQ IV ×2 (21:40→22:57)
--- NOTE | 2020-10-10 00:58 | ECG_ITS ---
Test Reason : REPEAT Blood Pressure : / mmHG Vent. Rate : 086 BPM Atrial Rate : 086 BPM P-R Int : 154 ms QRS Dur : 090 ms QT Int : 458 ms P-R-T Axes : 007 022 150 degrees QTc Int : 548 ms Normal sinus rhythm ST & T wave abnormality, consider lateral ischemia Abnormal ECG When compared with ECG of 09-OCT-2020 19:45, Nonspecific T wave abnormality, worse in Inferior leads T wave inversion now evident in Anterior leads Referred By: Shashank Reynoso Electronically Signed By:BRITTANY RIBERA MD
[2020-10-10 01:10] VITALS: BP 107/67; PULSE 85; RESP 20; TEMP 36.6; O2SAT 96
[2020-10-10 01:10] LABS: Ethanol < 10 mg/dL
[2020-10-10] MEDS: Potassium Bicarbonate/Cit AC 25 MEQ TABLET.EFF PO (01:22)
[2020-10-10] MEDS: chlordiazePOXIDE HCl 25 MG CAPSULE 50 MG PO ×2 (01:22→06:06)
[2020-10-10 01:45] LABS: Troponin-I High Sensitivity 11.8 ng/L (<3.5-35.0)
[2020-10-10 01:53] LABS: Anion Gap 16 (12-20); Blood Urea Nitrogen 24 mg/dL (9-16); Carbon Dioxide 27 mmol/L (22-29); Chloride 99 mmol/L (96-108); Creatinine Clr Calc Pharmacy 103.8; Estimated Glomerular Filt Rate 59; Glucose Random 94 mg/dL (60-115); Magnesium < 0.7 mg/dL (1.6-2.6); Potassium 2.8 mmol/L (3.3-5.1); Sodium 139 mmol/L (135-145)
[2020-10-10 02:02] VITALS: PULSE 85; RESP 22; O2SAT 98
[2020-10-10] MEDS: Magnesium Sulfate/H2O 2 GM/50 ML PIGGYBACK IV ×2 (02:16→02:34)
--- NOTE | 2020-10-10 02:44 | PC.NURSE ---
PER WILL DO CT CHEST D/T ELEVATED D-DIMER. WILL REPLACE K & MAG PER EMAR & RECHECK LABS @ 8190
[2020-10-10] MEDS: iohexoL 350 MG/ML 100 ML INFUS..BTL 65 ML IV (03:17)
[2020-10-10] MEDS: Potassium Chloride/H20 10 MEQ/100 ML PIGGYBACK 100 MEQ IV ×4 (03:22→06:32)
[2020-10-10] MEDS: 0.9 % Sodium Chloride 1,000 ML 999 ML IV (03:22)
[2020-10-10 04:00] VITALS: BP 122/78; PULSE 82; RESP 12
[2020-10-10 05:17] LABS: Troponin-I High Sensitivity 15.1 ng/L (<3.5-35.0)
--- NOTE | 2020-10-10 07:11 | PC.NURSE ---
Report recieved from Jose RN, Pt sitting in recliner at bedside. Respirations even/unlabored bilaterally. No sign of distress at this time. Will continue to monitor.
[2020-10-10 08:19] LABS: Anion Gap 15 (12-20); Blood Urea Nitrogen 21 mg/dL (9-16); Calcium 7.6 mg/dL (8.4-10.2); Carbon Dioxide 25 mmol/L (22-29); Chloride 99 mmol/L (96-108); Creatinine Clr Calc Pharmacy 110.7; Estimated Glomerular Filt Rate > 60; Glucose Random 99 mg/dL (60-115); Magnesium 1.3 mg/dL (1.6-2.6); Potassium 2.9 mmol/L (3.3-5.1); Sodium 136 mmol/L (135-145)
[2020-10-10] MEDS: Omeprazole 20 MG CAPSULE.DR PO (08:51)
== END 2020-10-10 09:16 | disposition home or self-care (01) ==
PROVIDERS: Internal Medicine; Student in an Organized Health Care Education/Training Program; Emergency Provider Emergency Medicine Emergency Medical Services; PCP Internal Medicine
DX: F10.230 Alcohol dependence with withdrawal, uncomplicated (principal); Y90.0 Blood alcohol level of less than 20 mg/100 ml; E87.6 Hypokalemia; R00.0 Tachycardia, unspecified; Z20.822 Contact with and (suspected) exposure to COVID-19; R11.2 Nausea with vomiting, unspecified; F41.9 Anxiety disorder, unspecified; I10 Essential (primary) hypertension; J44.9 Chronic obstructive pulmonary disease, unspecified; F17.200 Nicotine dependence, unspecified, uncomplicated; Z79.899 Other long term (current) drug therapy; Z79.02 Long term (current) use of antithrombotics/antiplatelets
CPT/HCPCS: 36415; 71275; 80048; 80076; 80320; 83690; 83735; 84484; 85025; 85379; 85610; 85730; 87635; 93005; 96360; 96361; 96365; 96366; 96367; 96368; 96374; 96375; 96376; 99285; J2060; J2405; J3475; Q9967

== ENCOUNTER 2020-10-11 22:59 | Emergency (ER) | payer MEDICAID, SELFPAY ==
--- NOTE | ~2020-10-11 | CT_ITS ---
EXAMINATION: NONCONTRAST HEAD CT NONCONTRAST CERVICAL SPINE CT INDICATION INFORMATION: Fall COMPARISON: None TECHNIQUE: Separate noncontrast CT examinations of the head and cervical spine were performed. Coronal and sagittal images were created for each examination at the technologist workstation. This CT examination was performed using dose optimization techniques as appropriate, variously including the following: *Automated exposure control *Adjustment of mA and/or kV according to patient size (this includes techniques or standardized protocols for targeted exams where dose is matched to indication/reason for exam; i.e. extremities or head) *Use of iterative reconstruction technique DLP: 1811 mGy-cm FINDINGS: Head: There is no evidence of acute intracranial hemorrhage or territorial infarction. No abnormal mass effect or midline shift is seen. Acevedo to white matter differentiation is well preserved. No extra-axial fluid collections are identified. No hydrocephalus. No significant volume loss. There is no abnormal attenuation within the brain parenchyma. No acute osseous or soft tissue abnormality. Mild opacification of the left ethmoid air cells. The mastoid air cells and visualized portions of the paranasal sinuses are otherwise well aerated. Cervical spine: There is anatomic alignment of the vertebral bodies and posterior elements. The atlantoaxial and atlantooccipital articulations are intact. Vertebral body heights are maintained. There is multilevel intervertebral disc space narrowing with endplate osteophyte formation and facet arthropathy. No evidence of acute fracture. No prevertebral soft tissue swelling. Visualized portions of the lung apices are unremarkable. The thyroid gland is unremarkable. CT/CT cervical spine wo con IMPRESSION: 1. No acute intracranial finding. 2. No fracture or malalignment of the cervical spine. Moderate degenerative changes throughout.
--- NOTE | ~2020-10-11 | XR_ITS ---
EXAMINATION: XR LUMBOSACRAL SPINE CLINICAL INFORMATION: Lumbar back pain after fall COMPARISON: None TECHNIQUE: Three views of the lumbosacral spine. FINDINGS: There is no acute fracture or subluxation. Vertebral body heights are maintained. There is grade 1 anterolisthesis of L4 on L5. Mild multilevel disc space narrowing with small endplate osteophytes. Mild facet arthropathy of the lower lumbar spine. The sacroiliac joints are symmetric. The sacrum appears intact. The bowel gas pattern is unremarkable. XR/XR lumbar spine 2-3V IMPRESSION: No acute abnormality. Mild degenerative changes.
[2020-10-11 23:14] VITALS: BP 111/60; PULSE 85; RESP 16; TEMP 36.6; O2SAT 96; BMI 43.0
--- NOTE | 2020-10-11 23:33 | ECG_ITS ---
Test Reason : DIZZINESS Blood Pressure : / mmHG Vent. Rate : 088 BPM Atrial Rate : 088 BPM P-R Int : 156 ms QRS Dur : 094 ms QT Int : 410 ms P-R-T Axes : -16 040 029 degrees QTc Int : 496 ms Normal sinus rhythm Nonspecific ST abnormality Prolonged QT Abnormal ECG When compared with ECG of 12-OCT-2020 01:15, No significant changes seen Referred By: Shai Amador Electronically Signed By:VARSHA THAO
--- NOTE | 2020-10-12 00:10 | ED.GENADULT ---
HPI - General Adult General Chief complaint: Back Pain/Injury <ANIKET Coles - Last Filed: 10/12/20 02:32> Stated complaint: BACK PAIN S/P FALL YESTERDAY <ANIKET Coles - Last Filed: 10/12/20 02:32> Time Seen by Provider: 10/11/20 23:26 <ANIKET Coles - Last Filed: 10/12/20 02:32> Source: patient <ANIKET Coles - Last Filed: 10/12/20 02:32> Mode of arrival: ambulatory <ANIKET Coles - Last Filed: 10/12/20 02:32> Limitations: no limitations <ANIKET Coles Last Filed: 10/12/20 02:32> History of Present Illness HPI narrative: Patient presents to ED for posterior head pain and lower back pain after falling yesterday. Patient states he was going up the stairs and felt dizzy and then fell back. Patient was seen the day before and was found to have low magnesium and was treated. Patient denied loss of consciousness. Patient is not on any blood thinners. Patient denies having any chest pain, headache, abdominal pain, nausea, or vomiting before falling yesterday. Patient states today he is not dizzy. <ANIKET Coles Last Filed: 10/12/20 02:32> Related Data Home medications: Home Medications Medication Instructions Recorded Confirmed bupropion HCl 100 mg tablet,12 hr 100 mg PO DAILY 05/17/20 10/01/20 sustained-release clotrimazole 1 % topical cream 1 applic TOPICAL BID 05/17/20 10/01/20 diphenhydramine HCl 25 mg capsule 25 mg PO Q6H PRN 05/17/20 10/01/20 fluticasone propionate 110 1 puff INHALATION Q12H 05/17/20 10/01/20 mcg/actuation HFA aerosol inhaler fluticasone propionate 50 1 spray INTRANASAL DAILY 05/17/20 10/01/20 mcg/actuation nasal spray,suspension magnesium oxide 400 mg PO DAILY 05/17/20 10/01/20 omeprazole 20 mg tablet,delayed 20 mg PO DAILY 05/17/20 10/01/20 release trazodone 100 mg tablet 100 mg PO BEDTIME PRN 05/17/20 10/01/20 venlafaxine 75 mg capsule,extended 75 mg PO BEDTIME 05/17/20 10/01/20 release 24 hr atorvastatin 40 mg tablet 40 mg PO DAILY 09/17/20 10/01/20 docusate sodium 100 mg capsule 100 mg PO DAILY 09/17/20 10/01/20 doxycycline hyclate 100 mg capsule 100 mg PO DAILY 09/17/20 10/01/20 folic acid 1 mg tablet 1 mg PO DAILY 09/17/20 10/01/20 hydrochlorothiazide 25 mg tablet 25 mg PO DAILY 09/17/20 10/01/20 lisinopril 40 mg tablet 40 mg PO DAILY 09/17/20 10/01/20 verapamil 200 mg capsule 24hr 200 mg PO BEDTIME 09/17/20 10/01/[address],ext.release clonazepam 2 mg tablet 2 mg PO BID 10/01/20 10/01/20 naloxone 4 mg/actuation nasal spray 4 mg INTRANASAL Q2M PRN 10/01/20 10/01/20 Previous Rx's Medication Instructions Recorded cyclobenzaprine 10 mg PO Q8H PRN #20 tab 05/27/20 lidocaine [Lidoderm] 1 patch TOPICAL DAILY #15 ea 05/27/20 naproxen 500 mg PO BID #20 tab 05/27/20 bisacodyl 10 mg rectal suppository 10 mg CA DAILY PRN #20 ea 09/17/20 polyethylene glycol 3350 17 238 g PO ONCE 1 Days #238 g 09/17/20 gram/dose oral powder oxycodone 5 mg tablet 5 mg PO Q6H PRN 30 Days #120 tab 10/01/20 cyclobenzaprine 10 mg PO TID PRN #20 tab 10/10/20 magnesium oxide 400 mg PO BID #60 cap 10/10/20 potassium chloride 30 meq PO DAILY #30 tab 10/10/20 <ANIKET Coles - Last Filed: 10/12/20 02:32> Allergies/adverse reactions: Allergies Allergy/AdvReac Type Severity Reaction Status Date / Time prednisone Allergy Unknown itching Verified 10/01/20 08:19 Vicodin Allergy Unknown nausea and Uncoded 04/09/20 00:00 vomiting <ANIKET Coles - Last Filed: 10/12/20 02:32> Review of Systems Constitutional: Constitutional: Reports as per HPI, Reports no additional constitutional complaints and Reports headache(s) (Posterior head) <ANIKET Coles Last Filed: 10/12/20 02:32> Eyes: Eyes: Reports as per HPI and Reports no additional eye complaints <ANIKET Coles Last Filed: 10/12/20 02:32> ENT: Reports system reviewed and no additional complaints, except as documented, Reports as per HPI and Reports headache(s) (Posterior head) <ANIKET Coles Last Filed: 10/12/20 02:32> Cardiovascular: Cardiovascular: Reports as per HPI and Reports no additional cardiovascular complaints <ANIKET Coles Last Filed: 10/12/20 02:32> Respiratory: Respiratory: Reports as per HPI and Reports no additional respiratory complaints <ANIKET Coles Last Filed: 10/12/20 02:32> Gastrointestinal: Gastrointestinal: Reports as per HPI and Reports no additional gastrointestinal complaints <ANIKET Coles Last Filed: 10/12/20 02:32> Genitourinary: Genitourinary: Reports no additional male genitourinary complaints and Reports as per HPI <ANIKET Coles Last Filed: 10/12/20 02:32> Musculoskeletal: Musculoskeletal: Reports no additional musculoskeletal complaints, Reports as per HPI and Reports back pain <ANIKET Coles Last Filed: 10/12/20 02:32> Neurologic: Reports system reviewed and no additional complaints, except as documented, Reports as per HPI and Reports headache(s) (Posterior head) <ANIKET Coles Last Filed: 10/12/20 02:32> Psychiatric: Psychiatric: Reports no additional psychiatric complaints and Reports as per HPI <ANIKET Coles Last Filed: 10/12/20 02:32> [facility] Past Medical History Medical History: Medical History Anxiety Arthritis Asthma COPD (chronic obstructive pulmonary disease) Degenerative joint disease of low back Depression Emphysema of lung Gout Hiatal hernia Hypercholesterolemia Hypertension Morbid obesity Neuropathy Polyarthralgia Sciatica <ANIKET Cloes Last Filed: 10/12/20 02:32> Family History Family History: Family History Father No problems noted. Mother Arthritis of knee Sister Obesity Son No problems noted. Daughter Psoriasis Manic depression <ANIKET Coles - Last Filed: 10/12/20 02:32> Social History Social History: Social History Household Members: None Alcohol intake: current Alcohol intake frequency: 3 or more drinks per day Alcohol type: hard liquor Smoking Status: Current every day smoker Advance Directives: No Advance Directives Information Provided: No Current occupational status: unemployed Current occupation: Left Handed <ANIKET Coles - Last Filed: 10/12/20 02:32> Physical Exam Vital Signs: Vital Signs: Last Vital Signs Temp 97.9 F 10/12/20 06:00 Pulse 43 L 10/12/20 06:00 Resp 10/12/20 06:00 BP 143/77 H 10/12/20 06:00 Pulse Ox 95 10/12/20 06:00 Body Mass Index 43.0 <ANIKET Coles - Last Filed: 10/12/20 02:32> Vital Signs: Last Vital Signs Temp 97.9 F 10/12/20 06:00 Pulse 43 L 10/12/20 06:00 Resp 16 10/12/20 06:00 BP 143/77 H 10/12/20 06:00 Pulse Ox 95 10/12/20 06:00 Body Mass Index 43.0 <Shira Sherman MD - Last Filed: 10/12/20 06:48> Const: General: cooperative, healthy appearing, comfortable, no acute distress, well developed, alert, awake and Physically active <ANIKET Coles - Last Filed: 10/12/20 02:32> Orientation/consciousness: patient oriented x3 <ANIKET Coles - Last Filed: 10/12/20 02:32> HENMT: Head: Yes normal to inspection, Yes No palpable skull fracture present, Yes normocephalic, Yes atraumatic, No abrasion, No Cervantes's sign, No contusion, No cranial bruits, No hematoma, No laceration, No occipital foramen tenderness, No palpable skull fracture, No raccoon eyes, No scalp lesion, Yes scalp tenderness (Posterior parietal), No Temporal artery tenderness present and No periorbital ecchymosis <Shai Perry ANIKET Jones Last Filed: 10/12/20 02:32> Eyes: General: appearance normal, both eyes and all related structures <Shai PerryANIKET Karen Last Filed: 10/12/20 02:32> Neck: Neck: Yes normal visual inspection, Yes full ROM, Yes no lymphadenopathy, Yes no meningeal signs, Yes trachea midline, Yes supple and No tender <Shai PerryANIKET Last Filed: 10/12/20 02:32> Chest: Chest palpation & inspection: normal inspection of the chest and normal palpation of entire chest wall <Shai Perry ANIKET Last Filed: 10/12/20 02:32> Resp: Effort & Inspection: normal respiratory effort and able to speak in complete sentences <Shai Perry ANIKET Last Filed: 10/12/20 02:32> Auscultation: clear to auscultation bilaterally <Shia Perry, PA Last Filed: 10/12/20 02:32> Cardio: Jugular venous distension: no JVD <Shai Perry ANIKET Last Filed: 10/12/20 02:32> Heart sounds: S1 normal heart sound present and S2 normal heart sound present <Shai Perry ANIKET Jones Last Filed: 10/12/20 02:32> GI: Inspection: Yes normal to inspection and No abdominal wall ecchymosis <Shai Perry ANIKET Last Filed: 10/12/20 02:32> Palpation (GI): Soft to palpation, not firm, nontender, no guarding and not rigid <Shai Perry, ANIKET Last Filed: 10/12/20 02:32> : General: No CVA tenderness and Yes no CVA tenderness <Shai Perry, PA Last Filed: 10/12/20 02:32> Back/Spine/Pelvis: Back: no CVA tenderness, No CVA tenderness and back tenderness (Lumbar spine) <Shai Perry, ANIKET Jones Last Filed: 10/12/20 02:32> Skin: General skin exam: no rashes or lesions noted and elasticity normal <Shai Perry, PA Last Filed: 10/12/20 02:32> Neuro: General: patient oriented x3, no meningeal signs and CN's II-XI intact bilaterally <ANIKET Coles Last Filed: 10/12/20 02:32> Cranial nerves: Yes CN's II-XII intact bilaterally <ANIKET Coles Last Filed: 10/12/20 02:32> Extrem: General: Yes normal to inspection and Yes full ROM <ANIKET Coles Last Filed: 10/12/20 02:32> Psych: Appearance: grossly normal, well kempt and not disheveled <ANIKET Coles Last Filed: 10/12/20 02:32> Course Course Course Narrative: Patient was seen 25th and had low magnesium. To patient stating yesterday he was dizzy and then fell patient have repeat labs including electrolytes and magnesium. Patient will at least have presently EKG and it is 1 troponin. Patient denies any chest pain or shortness of breath. <ANIKET Coles Last Filed: 10/12/20 02:32> 0454: On re-evaluation patient is doing well without any acute changes on focal exam. On review of repeat lab work magnesium is noted to be within normal range and serial troponins are flat. Patient is otherwise stable for discharge to home. <Shira Sherman MD - Last Filed: 10/12/20 06:48> Reevaluation(s) Reevaluation #1: Patient's images came back negative. Patient's electrolytes are deficient. Magnesium 1.1 and potassium 3. Patient will be given IV magnesium and oral potassium. Awaiting for orthostatics. EKG done and negative for STEMI. Patient is alert oriented x3. <ANIKET Coles Last Filed: 10/12/20 02:32> Time: 01:33 <ANIKET Coles Last Filed: 10/12/20 02:32> Reevaluation #2: Patient occult stool sample ordered due to drop in hemoglobin and hematocrit. most likely drop is from alcohol abuse. Case signed out to Dr. Sherman to follow up repeat troponin, magnesium, and orthostatics. Rectal exam negative for smita blood. stool was brown. Guaiac negative <ANIKET Coles Last Filed: 10/12/20 02:32> Time: 02:17 <ANIKET Coles - Last Filed: 10/12/20 02:32> Medical Decision Making MDM Narrative Medical decision making narrative: Fall. Hypomagnesium. Hypokalemia <ANIKET Coles - Last Filed: 10/12/20 02:32> Lab Data Result diagrams: : 10/12/20 00:23 10/12/20 00:23 <ANIKET Coles - Last Filed: 10/12/20 02:32> Labs: Lab Results 10/12/20 10/12/20 10/12/20 Range/Units 00:23 00:23 00:23 WBC 10.8 (4.8-10.8) X10*3/uL RBC 3.43 L D (4.60-5.80) X10*6/uL Hgb 10.6 L D (14.0-18.0) g/dl Hct 31.1 L D (42-52) % MCV 90.7 (80-98) fL MCH 30.9 (27.0-33.0) pg MCHC 34.1 (31.0-36.0) g/dl RDW 13.2 (11.0-16.0) % Plt Count 225 D (160-400) X10*3/uL MPV 10.1 (9.4-12.4) fL Immature Gran % (Auto) 0.7 H (0.0-0.4) % Neut % (Auto) 72.5 (45-73) % Lymph % (Auto) 14.6 L (20-40) % Nicol[place] % (Auto) 10.0 (2-11) % Eos % (Auto) 1.8 (0-4) % Baso % (Auto) 0.4 (0-2) % Lymph # (Auto) 1.6 (1.2-4.9) X10*3/uL [place] # (Auto) 1.1 (0.1-1.2) X10*3/uL Eos # (Auto) 0.2 (0.0-0.4) X10*3/uL Baso # (Auto) 0.0 (0.0-0.2) X10*3/uL Abs Immat Gran (auto) 0.08 H (0.00-0.03) X10*3/uL Absolute Neuts (auto) 7.9 (2.0-8.3) X10*3/uL Absolute Nucleated RBC 0.000 (0.0-0.012) X10*3/uL Nucleated RBC % (auto) 0.0 (0.0-0.2) /100WBC PT (10.8-13.0) SEC INR (0.9-1.1) APTT (24.1-38.0) SEC Sodium 136 (135-145) mmol/L Potassium 3.0 L (3.3-5.1) mmol/L Chloride 102 (96-108) mmol/L Carbon Dioxide 20 L (22-29) mmol/L Anion Gap 17 (12-20) BUN 25 H (9-16) mg/dL Creatinine 1.35 (0.5-1.4) mg/dL Estim Creat Clear Calc 99.6 Estimated GFR 55 Random Glucose 116 H (60-115) mg/dL Calcium 8.0 L (8.4-10.2) mg/dL Magnesium 1.1 L* (1.6-2.6) mg/dL Total Bilirubin 0.5 (0.0-1.0) mg/dL AST 67 H (5-37) U/L ALT 58 H (0-40) U/L Alkaline Phosphatase 135 H (39-117) U/L Troponin I High Sens (<3.5-35.0) ng/L Total Protein 6.8 (6.5-8.0) g/dL Albumin 4.1 (3.5-5.0) g/dL Stool Occult Blood (NEG) Ethyl Alcohol 49 mg/dL 10/12/20 10/12/20 10/12/20 Range/Units 00:23 00:23 02:11 WBC (4.8-10.8) X10*3/uL RBC (4.60-5.80) X10*6/uL Hgb (14.0-18.0) g/dl Hct (42-52) % MCV (80-98) fL MCH (27.0-33.0) pg MCHC (31.0-36.0) g/dl RDW (11.0-16.0) % Plt Count (160-400) X10*3/uL MPV (9.4-12.4) fL Immature Gran % (Auto) (0.0-0.4) % Neut % (Auto) (45-73) % Lymph % (Auto) (20-40) % Nicollet % (Auto) (2-11) % Eos % (Auto) (0-4) % Baso % (Auto) (0-2) % Lymph # (Auto) (1.2-4.9) X10*3/uL Nicol[place] # (Auto) (0.1-1.2) X10*3/uL Eos # (Auto) (0.0-0.4) X10*3/uL Baso # (Auto) (0.0-0.2) X10*3/uL Abs Immat Gran (auto) (0.00-0.03) X10*3/uL Absolute Neuts (auto) (2.0-8.3) X10*3/uL Absolute Nucleated RBC (0.0-0.012) X10*3/uL Nucleated RBC % (auto) (0.0-0.2) /100WBC PT 11.5 D (10.8-13.0) SEC INR 1.0 (0.9-1.1) APTT 30.0 (24.1-38.0) SEC Sodium (135-145) mmol/L Potassium (3.3-5.1) mmol/L Chloride (96-108) mmol/L Carbon Dioxide (22-29) mmol/L Anion Gap (12-20) BUN (9-16) mg/dL Creatinine (0.5-1.4) mg/dL Estim Creat Clear Calc Estimated GFR Random Glucose (60-115) mg/dL Calcium (8.4-10.2) mg/dL Magnesium (1.6-2.6) mg/dL Total Bilirubin (0.0-1.0) mg/dL AST (5-37) U/L ALT (0-40) U/L Alkaline Phosphatase (39-117) U/L Troponin I High Sens 6.8 D (<3.5-35.0) ng/L Total Protein (6.5-8.0) g/dL Albumin (3.5-5.0) g/dL Stool Occult Blood NEG (NEG) Ethyl Alcohol mg/dL 10/12/20 10/12/20 Range/Units 04:54 04:54 WBC (4.8-10.8) X10*3/uL RBC (4.60-5.80) X10*6/uL Hgb (14.0-18.0) g/dl Hct (42-52) % MCV (80-98) fL MCH (27.0-33.0) pg MCHC (31.0-36.0) g/dl RDW (11.0-16.0) % Plt Count (160-400) X10*3/uL MPV (9.4-12.4) fL Immature Gran % (Auto) (0.0-0.4) % Neut % (Auto) (45-73) % Lymph % (Auto) (20-40) % Nicollet % (Auto) (2-11) % Eos % (Auto) (0-4) % Baso % (Auto) (0-2) % Lymph # (Auto) (1.2-4.9) X10*3/uL Nicol[place] # (Auto) (0.1-1.2) X10*3/uL Eos # (Auto) (0.0-0.4) X10*3/uL Baso # (Auto) (0.0-0.2) X10*3/uL Abs Immat Gran (auto) (0.00-0.03) X10*3/uL Absolute Neuts (auto) (2.0-8.3) X10*3/uL Absolute Nucleated RBC (0.0-0.012) X10*3/uL Nucleated RBC % (auto) (0.0-0.2) /100WBC PT (10.8-13.0) SEC INR (0.9-1.1) APTT (24.1-38.0) SEC Sodium (135-145) mmol/L Potassium (3.3-5.1) mmol/L Chloride (96-108) mmol/L Carbon Dioxide (22-29) mmol/L Anion Gap (12-20) BUN (9-16) mg/dL Creatinine (0.5-1.4) mg/dL Estim Creat Clear Calc Estimated GFR Random Glucose (60-115) mg/dL Calcium (8.4-10.2) mg/dL Magnesium 1.6 (1.6-2.6) mg/dL Total Bilirubin (0.0-1.0) mg/dL AST (5-37) U/L ALT (0-40) U/L Alkaline Phosphatase (39-117) U/L Troponin I High Sens 5.4 (<3.5-35.0) ng/L Total Protein (6.5-8.0) g/dL Albumin (3.5-5.0) g/dL Stool Occult Blood (NEG) Ethyl Alcohol mg/dL <ANIKET Coles - Last Filed: 10/12/20 02:32> Lab Results 10/12/20 10/12/20 10/12/20 Range/Units 00:23 00:23 00:23 WBC 10.8 (4.8-10.8) X10*3/uL RBC 3.43 L D (4.60-5.80) X10*6/uL Hgb 10.6 L D (14.0-18.0) g/dl Hct 31.1 L D (42-52) % MCV 90.7 (80-98) fL MCH 30.9 (27.0-33.0) pg MCHC 34.1 (31.0-36.0) g/dl RDW 13.2 (11.0-16.0) % Plt Count 225 D (160-400) X10*3/uL MPV 10.1 (9.4-12.4) fL Immature Gran % (Auto) 0.7 H (0.0-0.4) % Neut % (Auto) 72.5 (45-73) % Lymph % (Auto) 14.6 L (20-40) % Nicollet % (Auto) 10.0 (2-11) % Eos % (Auto) 1.8 (0-4) % Baso % (Auto) 0.4 (0-2) % Lymph # (Auto) 1.6 (1.2-4.9) X10*3/uL [place] # (Auto) 1.1 (0.1-1.2) X10*3/uL Eos # (Auto) 0.2 (0.0-0.4) X10*3/uL Baso # (Auto) 0.0 (0.0-0.2) X10*3/uL Abs Immat Gran (auto) 0.08 H (0.00-0.03) X10*3/uL Absolute Neuts (auto) 7.9 (2.0-8.3) X10*3/uL Absolute Nucleated RBC 0.000 (0.0-0.012) X10*3/uL Nucleated RBC % (auto) 0.0 (0.0-0.2) /100WBC PT (10.8-13.0) SEC INR (0.9-1.1) APTT (24.1-38.0) SEC Sodium 136 (135-145) mmol/L Potassium 3.0 L (3.3-5.1) mmol/L Chloride 102 (96-108) mmol/L Carbon Dioxide 20 L (22-29) mmol/L Anion Gap 17 (12-20) BUN 25 H (9-16) mg/dL Creatinine 1.35 (0.5-1.4) mg/dL Estim Creat Clear Calc 99.6 Estimated GFR 55 Random Glucose 116 H (60-115) mg/dL Calcium 8.0 L (8.4-10.2) mg/dL Magnesium 1.1 L* (1.6-2.6) mg/dL Total Bilirubin 0.5 (0.0-1.0) mg/dL AST 67 H (5-37) U/L ALT 58 H (0-40) U/L Alkaline Phosphatase 135 H (39-117) U/L Troponin I High Sens (<3.5-35.0) ng/L Total Protein 6.8 (6.5-8.0) g/dL Albumin 4.1 (3.5-5.0) g/dL Stool Occult Blood (NEG) Ethyl Alcohol 49 mg/dL 10/12/20 10/12/20 10/12/20 Range/Units 00:23 00:23 02:11 WBC (4.8-10.8) X10*3/uL RBC (4.60-5.80) X10*6/uL Hgb (14.0-18.0) g/dl Hct (42-52) % MCV (80-98) fL MCH (27.0-33.0) pg MCHC (31.0-36.0) g/dl RDW (11.0-16.0) % Plt Count (160-400) X10*3/uL MPV (9.4-12.4) fL Immature Gran % (Auto) (0.0-0.4) % Neut % (Auto) (45-73) % Lymph % (Auto) (20-40) % Nicollet % (Auto) (2-11) % Eos % (Auto) (0-4) % Baso % (Auto) (0-2) % Lymph # (Auto) (1.2-4.9) X10*3/uL [place] # (Auto) (0.1-1.2) X10*3/uL Eos # (Auto) (0.0-0.4) X10*3/uL Baso # (Auto) (0.0-0.2) X10*3/uL Abs Immat Gran (auto) (0.00-0.03) X10*3/uL Absolute Neuts (auto) (2.0-8.3) X10*3/uL Absolute Nucleated RBC (0.0-0.012) X10*3/uL Nucleated RBC % (auto) (0.0-0.2) /100WBC PT 11.5 D (10.8-13.0) SEC INR 1.0 (0.9-1.1) APTT 30.0 (24.1-38.0) SEC Sodium (135-145) mmol/L Potassium (3.3-5.1) mmol/L Chloride (96-108) mmol/L Carbon Dioxide (22-29) mmol/L Anion Gap (12-20) BUN (9-16) mg/dL Creatinine (0.5-1.4) mg/dL Estim Creat Clear Calc Estimated GFR Random Glucose (60-115) mg/dL Calcium (8.4-10.2) mg/dL Magnesium (1.6-2.6) mg/dL Total Bilirubin (0.0-1.0) mg/dL AST (5-37) U/L ALT (0-40) U/L Alkaline Phosphatase (39-117) U/L Troponin I High Sens 6.8 D (<3.5-35.0) ng/L Total Protein (6.5-8.0) g/dL Albumin (3.5-5.0) g/dL Stool Occult Blood NEG (NEG) Ethyl Alcohol mg/dL 10/12/20 10/12/20 Range/Units 04:54 04:54 WBC (4.8-10.8) X10*3/uL RBC (4.60-5.80) X10*6/uL Hgb (14.0-18.0) g/dl Hct (42-52) % MCV (80-98) fL MCH (27.0-33.0) pg MCHC (31.0-36.0) g/dl RDW (11.0-16.0) % Plt Count (160-400) X10*3/uL MPV (9.4-12.4) fL Immature Gran % (Auto) (0.0-0.4) % Neut % (Auto) (45-73) % Lymph % (Auto) (20-40) % Nicollet % (Auto) (2-11) % Eos % (Auto) (0-4) % Baso % (Auto) (0-2) % Lymph # (Auto) (1.2-4.9) X10*3/uL [place] # (Auto) (0.1-1.2) X10*3/uL Eos # (Auto) (0.0-0.4) X10*3/uL Baso # (Auto) (0.0-0.2) X10*3/uL Abs Immat Gran (auto) (0.00-0.03) X10*3/uL Absolute Neuts (auto) (2.0-8.3) X10*3/uL Absolute Nucleated RBC (0.0-0.012) X10*3/uL Nucleated RBC % (auto) (0.0-0.2) /100WBC PT (10.8-13.0) SEC INR (0.9-1.1) APTT (24.1-38.0) SEC Sodium (135-145) mmol/L Potassium (3.3-5.1) mmol/L Chloride (96-108) mmol/L Carbon Dioxide (22-29) mmol/L Anion Gap (12-20) BUN (9-16) mg/dL Creatinine (0.5-1.4) mg/dL Estim Creat Clear Calc Estimated GFR Random Glucose (60-115) mg/dL Calcium (8.4-10.2) mg/dL Magnesium 1.6 (1.6-2.6) mg/dL Total Bilirubin (0.0-1.0) mg/dL AST (5-37) U/L ALT (0-40) U/L Alkaline Phosphatase (39-117) U/L Troponin I High Sens 5.4 (<3.5-35.0) ng/L Total Protein (6.5-8.0) g/dL Albumin (3.5-5.0) g/dL Stool Occult Blood (NEG) Ethyl Alcohol mg/dL <Shira Sherman MD - Last Filed: 10/12/20 06:48> ECG Data Interpretation: Normal sinus rhythm. Ventricular rate 88. Pr interval 156. QRS 94. Prolonged QT. QTC 496. Negative STEMI. <ANIKET Coles - Last Filed: 10/12/20 02:32> Discharge Plan Discharge Clinical Impression: Fall, Head injury, Hypomagnesemia, Acute hypokalemia <ANIKET Coles - Last Filed: 10/12/20 02:32> Instructions: Hypokalemia (ED), Head Injury (ED), Abuse of Alcohol (ED), Hypomagnesemia (ED) <ANIKET Coles - Last Filed: 10/12/20 02:32> Additional Instructions: Return to the ED for any headache, dizziness, abdominal pain, chest pain, cramping of extremities, slurred speech, loss of vision, numbness, weakness, or any other concerning symptoms. Please follow-up with PCP <ANIKET Coles - Last Filed: 10/12/20 02:32> Prescriptions: No Action magnesium oxide 400 mg magnesium capsule 400 mg PO BID Qty: 60 RF: 0 potassium chloride 20 mEq tablet,ER particles/crystals 30 meq PO DAILY Qty: 30 RF: 0 cyclobenzaprine 10 mg tablet 10 mg PO TID PRN (Reason: muscle pain or spasm) Qty: 20 RF: 0 lidocaine [Lidoderm] 5 % adhesive patch,medicated 1 patch topical DAILY Qty: 15 RF: 0 naproxen 500 mg tablet 500 mg PO BID Qty: 20 RF: 0 cyclobenzaprine 10 mg tablet 10 mg PO Q8H PRN (Reason: muscle spasm) Qty: 20 RF: 0 doxycycline hyclate 100 mg capsule 100 mg PO DAILY RF: 0 lisinopril 40 mg tablet 40 mg PO DAILY RF: 0 folic acid 1 mg tablet 1 mg PO DAILY RF: 0 verapamil 200 mg capsule, [address] 200 mg PO BEDTIME RF: 0 docusate sodium [Colace] 100 mg capsule 100 mg PO DAILY RF: 0 atorvastatin 40 mg tablet 40 mg PO DAILY RF: 0 hydrochlorothiazide 25 mg tablet 25 mg PO DAILY RF: 0 polyethylene glycol 3350 [Miralax] 17 gram/dose powder 238 g PO ONCE 1 Days Qty: 238 RF: 0 bisacodyl [Dulcolax (bisacodyl)] 10 mg suppository 10 mg CA DAILY PRN (Reason: constipation) Qty: 20 RF: 0 magnesium oxide 400 mg magnesium capsule 400 mg PO DAILY RF: 0 bupropion HCl [Wellbutrin SR] 100 mg tablet sustained-release 12 hr 100 mg PO DAILY RF: 0 fluticasone propionate 50 mcg/actuation spray,suspension 1 spray intranasal DAILY RF: 0 Flovent HFA 110 mcg/actuation HFA aerosol inhaler 1 puff inhalation Q12H RF: 0 omeprazole 20 mg tablet,delayed release (DR/EC) 20 mg PO DAILY RF: 0 diphenhydramine HCl [Banophen] 25 mg capsule 25 mg PO Q6H PRNRF: 0 clotrimazole 1 % cream 1 applic topical BID RF: 0 trazodone 100 mg tablet 100 mg PO BEDTIME PRNRF: 0 venlafaxine [Effexor XR] 75 mg capsule,extended release 24hr 75 mg PO BEDTIME RF: 0 clonazepam 2 mg tablet 2 mg PO BID RF: 0 Narcan 4 mg/actuation spray,non-aerosol 4 mg intranasal Q2M PRNRF: 0 oxycodone 5 mg tablet 5 mg PO Q6H PRN (Reason: pain) 30 Days Qty: 120 RF: 0 <ANIKET Coles - Last Filed: 10/12/20 02:32> Print Language: Divehi <ANIKET Coles - Last Filed: 10/12/20 02:32>
[2020-10-12 00:29] LABS: MANUAL DIFF FLAG NO
[2020-10-12 00:31] LABS: Basophils Percent Auto 0.4 % (0-2); Eosinophils Absolute Auto 0.2 X10*3/uL (0.0-0.4); Eosinophils Percent Auto 1.8 % (0-4); Hematocrit 31.1 % (42-52); Hemoglobin 10.6 g/dl (14.0-18.0); Imm Gran Abs Auto 0.08 X10*3/uL (0.00-0.03); Imm Gran Pct Auto 0.7 % (0.0-0.4); Lymphocytes Absolute Auto 1.6 X10*3/uL (1.2-4.9); Lymphocytes Percent Auto 14.6 % (20-40); Mean Corpuscular HGB Conc 34.1 g/dl (31.0-36.0); Mean Corpuscular Hemoglobin 30.9 pg (27.0-33.0); Mean Corpuscular Volume 90.7 fL (80-98); Mean Platelet Volume 10.1 fL (9.4-12.4); Monocytes Absolute Auto 1.1 X10*3/uL (0.1-1.2); Neutrophils Absolute Auto 7.9 X10*3/uL (2.0-8.3); Neutrophils Percent Auto 72.5 % (45-73); Platelet Count 225 X10*3/uL (160-400); Red Blood Count 3.43 X10*6/uL (4.60-5.80); Red Cell Distribution Width 13.2 % (11.0-16.0); White Blood Count 10.8 X10*3/uL (4.8-10.8)
[2020-10-12 00:44] LABS: Prothrombin Time 11.5 SEC (10.8-13.0)
[2020-10-12 00:53] LABS: Ethanol 49 mg/dL
[2020-10-12 01:16] LABS: Alanine Aminotransferase 58 U/L (0-40); Albumin Level 4.1 g/dL (3.5-5.0); Alkaline Phosphatase 135 U/L (39-117); Anion Gap 17 (12-20); Aspartate Amino Transferase 67 U/L (5-37); Bilirubin Total 0.5 mg/dL (0.0-1.0); Blood Urea Nitrogen 25 mg/dL (9-16); Carbon Dioxide 20 mmol/L (22-29); Chloride 102 mmol/L (96-108); Creatinine Clr Calc Pharmacy 99.6; Estimated Glomerular Filt Rate 55; Glucose Random 116 mg/dL (60-115); Magnesium 1.1 mg/dL (1.6-2.6); Sodium 136 mmol/L (135-145); Total Protein 6.8 g/dL (6.5-8.0)
[2020-10-12] MEDS: 0.9 % Sodium Chloride 1,000 ML 999 ML IV (01:33)
[2020-10-12 02:00] VITALS: BP 143/58; PULSE 82; RESP 16
[2020-10-12 02:03] LABS: Troponin-I High Sensitivity 6.8 ng/L (<3.5-35.0)
[2020-10-12] MEDS: Potassium Chloride Packet 20 MEQ PACKET 40 MEQ PO (02:18)
[2020-10-12] MEDS: Magnesium Sulfate/H2O 2 GM/50 ML PIGGYBACK IV (02:18)
[2020-10-12 02:28] LABS: OBS Int Ctl Valid YES; OBS1 NEG (NEG)
--- NOTE | 2020-10-12 02:40 | PC.NURSE ---
ASSUMED CARE OF PT. PT SLEEPING IN STRETCHER, PT WAKES AND COMPLAINS YOU FORGOT ABOUT ME AND PT FALLS DIRECTLY BACK TO SLEEP. PT MEDICATED PER EMAR. PT C/O IM IN SO MUCH PAIN, I HAVEN'T GOTTEN ANY PAIN MEDS. MD AWARE. HL PLACED TO LAC, SITE INTACT. EKG OBTAINED AND ORTHO'S OBTAINED AT THIS TIME. WILL CONTINUE TO MONITOR PT.
[2020-10-12 02:50] VITALS: BP 144/73; PULSE 92
[2020-10-12 02:51] VITALS: BP 133/72; PULSE 90
[2020-10-12 02:57] VITALS: BP 134/79; PULSE 93
--- NOTE | 2020-10-12 02:58 | PC.NURSE ---
MAXIMO'S OBTAINED TO
--- NOTE | 2020-10-12 03:31 | PC.NURSE ---
PT IS SNORING LOUDLY AND WAKING HIMSELF UP AND FALLS DIRECTLY BACK TO SLEEP. PT DENIES ANY COMPLAINTS AT THIS TIME. WILL CONTINUE TO MONITOR PT.
[2020-10-12 04:00] VITALS: BP 143/78; PULSE 89; RESP 16
[2020-10-12 05:26] LABS: Magnesium 1.6 mg/dL (1.6-2.6)
--- NOTE | 2020-10-12 05:27 | PC.NURSE ---
PT HAS BEEN SLEEPING AND WAKES UP IN PAIN.
[2020-10-12 05:31] LABS: Troponin-I High Sensitivity 5.4 ng/L (<3.5-35.0)
--- NOTE | 2020-10-12 05:38 | PC.NURSE ---
PT STANDS UP AND STARTS YELLING I NEED PAIN MEDS . PT AWAKE, RESPIRATIONS EASY, N/L. SKIN W/D. LABS REDRAWN TO LAB. WILL CONTINUE TO MONITOR PT.
[2020-10-12 06:00] VITALS: BP 143/77; BP 143/81; PULSE 43; PULSE 84; RESP 16; TEMP 36.6; O2SAT 95
== END 2020-10-12 07:12 | disposition home or self-care (01) ==
PROVIDERS: Physician Assistant; Emergency Provider Emergency Medicine Emergency Medical Services
DX: S09.90XA Unspecified injury of head, initial encounter (principal); W10.8XXA Fall (on) (from) other stairs and steps, initial encounter; E83.42 Hypomagnesemia; E87.6 Hypokalemia; F10.10 Alcohol abuse, uncomplicated; Y90.2 Blood alcohol level of 40-59 mg/100 ml; I10 Essential (primary) hypertension; F41.9 Anxiety disorder, unspecified; J45.909 Unspecified asthma, uncomplicated; F17.200 Nicotine dependence, unspecified, uncomplicated; Y93.9 Activity, unspecified; Y92.018 Other place in single-family (private) house as the place of occurrence of the external cause; Y99.9 Unspecified external cause status; Z79.899 Other long term (current) drug therapy
CPT/HCPCS: 36415; 70450; 72100; 72125; 80053; 80320; 82272; 83735; 84484; 85025; 85610; 85730; 93005; 96361; 96365; 96366; 99284; J3475

== ENCOUNTER → 2020-10-15 11:29 | Outpatient (BNVA) | payer MEDICAID, SELFPAY | PROVIDERS: PCP Internal Medicine; Visit Provider Anesthesiology ==

== ENCOUNTER → 2020-10-29 08:27 | Outpatient (BNVA) | payer MEDICAID, SELFPAY | PROVIDERS: Visit Provider Anesthesiology | DX: F11.90 Opioid use, unspecified, uncomplicated (principal); M19.012 Primary osteoarthritis, left shoulder; M17.0 Bilateral primary osteoarthritis of knee; M19.011 Primary osteoarthritis, right shoulder; Z79.899 Other long term (current) drug therapy | CPT/HCPCS: 99212 ==

== ENCOUNTER → 2020-11-26 08:24 | Outpatient (BNVA) | payer MEDICAID, SELFPAY | PROVIDERS: Visit Provider Anesthesiology | DX: F11.90 Opioid use, unspecified, uncomplicated (principal); M19.012 Primary osteoarthritis, left shoulder; M17.0 Bilateral primary osteoarthritis of knee; M19.011 Primary osteoarthritis, right shoulder | CPT/HCPCS: 20610; 99212; J7325 ==

== ENCOUNTER → 2020-12-25 08:11 | Outpatient (BNVA) | payer MEDICAID, SELFPAY | PROVIDERS: PCP Internal Medicine; Visit Provider Anesthesiology | DX: F11.90 Opioid use, unspecified, uncomplicated (principal); M19.012 Primary osteoarthritis, left shoulder; M17.0 Bilateral primary osteoarthritis of knee; M19.011 Primary osteoarthritis, right shoulder | CPT/HCPCS: 99212 ==

== ENCOUNTER 2020-12-30 06:56 | Outpatient (REF) | payer MEDICAID, SELFPAY ==
--- NOTE | ~2020-12-30 | FL_ITS ---
EXAMINATION: XR FLUOROSCOPY WITH IMAGES CLINICAL INFORMATION: Right and left shoulder primary osteoarthritis COMPARISON: September 09, 2020 TECHNIQUE: Fluoroscopy performed by Shalini Egan . Fluoroscopy time: 0.7 minutes DAP: 614 Gycm2 Images: 2 FINDINGS: Single image of both right and left shoulders performed demonstrating needles about the superior aspect of the glenohumeral joint with contrast seen within the joint space. FL/FL guidance in treatment room IMPRESSION: Bilateral shoulder injection's.
== END 2020-12-30 06:57 | disposition home or self-care (01) ==
LOC: HO.RADIR 06:56
PROVIDERS: Visit Provider Anesthesiology
DX: M17.0 Bilateral primary osteoarthritis of knee (principal); M19.011 Primary osteoarthritis, right shoulder; M19.012 Primary osteoarthritis, left shoulder; F11.90 Opioid use, unspecified, uncomplicated; Z79.899 Other long term (current) drug therapy
CPT/HCPCS: 20610; J3300; Q9967

== ENCOUNTER → 2021-01-06 08:58 | Outpatient (BNVA) | payer MEDICAID, SELFPAY | PROVIDERS: PCP Internal Medicine; Visit Provider Internal Medicine Pulmonary Disease | DX: R06.00 Dyspnea, unspecified (principal) | CPT/HCPCS: 99212 ==

== ENCOUNTER 2021-01-15 13:07 | Outpatient (REF) | payer MEDICAID, SELFPAY ==
--- NOTE | ~2021-01-15 | CT_ITS ---
EXAMINATION: CT BRAIN WITHOUT CONTRAST CT CERVICAL SPINE WITHOUT CONTRAST CLINICAL INFORMATION: Neck pain. COMPARISON: CT brain 10/11/2020 TECHNIQUE: 5 mm thin axial and reformatted 2 mm thin sagittal and coronal images of brain were obtained. Axial 2 mm thin and reformatted 2 mm thin sagittal and coronal images of cervical spine were obtained. DLP: 1496 mGy-cm FINDINGS: BRAIN: There is no acute intra-axial, extra-axial bleed, masses, collection or midline shift. The lateral ventricles are symmetrical in size and configuration without enlargement. There is no acute infarct in evolution. There is no edema. Bone windows reveal no calvarial abnormality. There is no scalp soft tissue abnormality. Bilateral paranasal sinuses and mastoid air cells are well aerated. CERVICAL SPINE: There is mild straightening of cervical lordosis. The vertebral heights and alignment is normal. There is loss of C3-C4, C4-C5, C5-C6 and C6-C7 disc heights with mild ventral and posterior spondylosis. The craniovertebral junction and the C1-C2 alignment is normal. There is no visible acute fracture, dislocation or subluxation seen. There is bilateral uncovertebral and mild facet joint hypertrophy at C3-C4, on the right C4-C5, bilaterally at C5-C6 and C6-C7 disc levels resulting in bilateral neural foraminal narrowing. Mild cervical canal stenosis from disc bulge/osteophyte complex is seen at C3-C4 through C6-C7 disc levels. The craniovertebral junction is normal. No visible fracture, dislocation or lytic process seen. The prevertebral soft tissues are normal. The prevertebral, paravertebral and parapharyngeal soft tissues are normal. The lung apices are clear. The tracheal airway is widely patent. CT/CT cervical spine wo con IMPRESSION: No acute intracranial process seen. There is no acute fracture, dislocation or subluxation seen in cervical spine. Mild straightening of cervical lordosis with degenerative disc changes as seen in cervical spine.
--- NOTE | ~2021-01-15 | XR_ITS ---
EXAMINATION: XR HIP, RIGHT CLINICAL INFORMATION: Right hip pain COMPARISON: Lumbar radiographs 10/12/2020 TECHNIQUE: Two views of the right hip. FINDINGS: There is mild osteitis pubis present. The right hip shows normal bony mineralization with no fracture or or destructive process. There is borderline narrowing superior medial hip joints but no subchondral sclerosis or erosive change or visible chondrocalcinosis. XR/XR hip RT min 2V IMPRESSION: 1. Osteitis pubis. 2. Borderline narrowing superior medial hip joint. No subchondral sclerosis or erosive change.
== END 2021-01-15 13:08 | disposition home or self-care (01) ==
LOC: HO.CT 13:07
PROVIDERS: Absent Provider Internal Medicine; PCP Internal Medicine; Visit Provider Internal Medicine
DX: M25.551 Pain in right hip (principal); M54.2 Cervicalgia; G44.311 Acute post-traumatic headache, intractable
CPT/HCPCS: 70450; 72125; 73502

== ENCOUNTER → 2021-01-22 09:27 | Outpatient (BNVA) | payer MEDICAID, SELFPAY | PROVIDERS: Visit Provider Anesthesiology | DX: F11.90 Opioid use, unspecified, uncomplicated (principal); M19.012 Primary osteoarthritis, left shoulder; M17.0 Bilateral primary osteoarthritis of knee; M19.011 Primary osteoarthritis, right shoulder | CPT/HCPCS: 99212 ==

== ENCOUNTER 2021-04-01 08:01 | Outpatient (REF) | payer MEDICAID, SELFPAY ==
--- NOTE | ~2021-04-01 | XR_ITS ---
EXAMINATION: XR BOTH KNEES AP STANDING XR RIGHT KNEE, 2 VIEWS XR LEFT KNEE, 2 VIEWS CLINICAL INFORMATION: Pain. COMPARISON: None. TECHNIQUE: Standing AP view of both knees and lateral and sunrise views of the right and left knee. FINDINGS: Right knee: Cmbwmkdh-mx-vlsztr medial compartment joint space narrowing. Small tricompartmental marginal osteophytes. No osseous erosion. No fracture or dislocation. Small joint effusion. Left knee: Xdouppgl-yv-bunzap medial compartment joint space narrowing. Tricompartmental marginal osteophytes. No osseous erosion. No fracture or dislocation. Small joint effusion. XR/XR knee LT 2V IMPRESSION: RIGHT KNEE: Tricompartmental osteoarthritis, most prominent within the medial compartment, progressed when compared to the prior examination. Small joint effusion. LEFT KNEE: Tricompartmental osteoarthritis, most prominent within the medial compartment, progressed when compared to the prior examination. Small joint effusion.
--- NOTE | ~2021-04-01 | XR_ITS ---
EXAMINATION: XR BOTH KNEES AP STANDING XR RIGHT KNEE, 2 VIEWS XR LEFT KNEE, 2 VIEWS CLINICAL INFORMATION: Pain. COMPARISON: None. TECHNIQUE: Standing AP view of both knees and lateral and sunrise views of the right and left knee. FINDINGS: Right knee: Bwpvducd-lf-bhexov medial compartment joint space narrowing. Small tricompartmental marginal osteophytes. No osseous erosion. No fracture or dislocation. Small joint effusion. Left knee: Ldwxfxhg-gh-taetet medial compartment joint space narrowing. Tricompartmental marginal osteophytes. No osseous erosion. No fracture or dislocation. Small joint effusion. XR/XR knee standing BI IMPRESSION: RIGHT KNEE: Tricompartmental osteoarthritis, most prominent within the medial compartment, progressed when compared to the prior examination. Small joint effusion. LEFT KNEE: Tricompartmental osteoarthritis, most prominent within the medial compartment, progressed when compared to the prior examination. Small joint effusion.
--- NOTE | ~2021-04-01 | XR_ITS ---
EXAMINATION: XR BOTH KNEES AP STANDING XR RIGHT KNEE, 2 VIEWS XR LEFT KNEE, 2 VIEWS CLINICAL INFORMATION: Pain. COMPARISON: None. TECHNIQUE: Standing AP view of both knees and lateral and sunrise views of the right and left knee. FINDINGS: Right knee: Wkcdxrvl-dj-kmvdnt medial compartment joint space narrowing. Small tricompartmental marginal osteophytes. No osseous erosion. No fracture or dislocation. Small joint effusion. Left knee: Rmpcqulo-fk-cskvii medial compartment joint space narrowing. Tricompartmental marginal osteophytes. No osseous erosion. No fracture or dislocation. Small joint effusion. XR/XR knee RT 2V IMPRESSION: RIGHT KNEE: Tricompartmental osteoarthritis, most prominent within the medial compartment, progressed when compared to the prior examination. Small joint effusion. LEFT KNEE: Tricompartmental osteoarthritis, most prominent within the medial compartment, progressed when compared to the prior examination. Small joint effusion.
== END 2021-04-01 08:02 | disposition home or self-care (01) ==
LOC: HO.HOSX 08:01
PROVIDERS: Visit Provider Physician Assistant
DX: M17.0 Bilateral primary osteoarthritis of knee (principal)
CPT/HCPCS: 20610; 73560; 73565; 99202; J1020

== ENCOUNTER → 2021-04-10 09:31 | Outpatient (BNVA) | payer MEDICAID, SELFPAY | PROVIDERS: PCP Internal Medicine; Visit Provider Physician Assistant | DX: M53.3 Sacrococcygeal disorders, not elsewhere classified (principal); M70.61 Trochanteric bursitis, right hip; G89.29 Other chronic pain | CPT/HCPCS: 99212 ==

== ENCOUNTER → 2021-04-15 14:17 | Outpatient (BNVA) | payer MEDICAID, SELFPAY | PROVIDERS: PCP Internal Medicine; Visit Provider Physician Assistant ==

== ENCOUNTER → 2021-04-24 08:57 | Outpatient (BNVA) | payer MEDICAID, SELFPAY | PROVIDERS: PCP Internal Medicine; Visit Provider Urology | DX: N39.41 Urge incontinence (principal); R35.1 Nocturia | CPT/HCPCS: 51798; 99202 ==

== ENCOUNTER → 2021-06-03 09:02 | Outpatient (BNVA) | payer MEDICAID, SELFPAY | PROVIDERS: PCP Internal Medicine; Visit Provider Internal Medicine Pulmonary Disease | DX: Z01.811 Encounter for preprocedural respiratory examination (principal); R06.00 Dyspnea, unspecified | CPT/HCPCS: 99212 ==

== ENCOUNTER → 2021-06-05 08:24 | Outpatient (BNVA) | payer MEDICAID, SELFPAY | PROVIDERS: PCP Internal Medicine; Visit Provider Urology | DX: N39.41 Urge incontinence (principal); Z13.9 Encounter for screening, unspecified; R35.1 Nocturia; N40.1 Benign prostatic hyperplasia with lower urinary tract symptoms ==

== ENCOUNTER 2021-06-16 14:14 | Outpatient (REF) | payer MEDICAID, SELFPAY ==
[2021-06-16 15:22] LABS: MANUAL DIFF FLAG NO
[2021-06-16 15:34] LABS: Basophils Percent Auto 0.5 % (0-2); Eosinophils Absolute Auto 0.1 X10*3/uL (0.0-0.4); Eosinophils Percent Auto 1.6 % (0-4); Hematocrit 36.6 % (42.0-52.0); Hemoglobin 12.1 g/dl (14.0-18.0); Imm Gran Abs Auto 0.03 X10*3/uL (0.00-0.03); Imm Gran Pct Auto 0.4 % (0.0-0.4); Lymphocytes Absolute Auto 1.6 X10*3/uL (1.2-4.9); Lymphocytes Percent Auto 18.6 % (20-40); Mean Corpuscular HGB Conc 33.1 g/dl (31.0-36.0); Mean Corpuscular Hemoglobin 30.7 pg (27.0-33.0); Mean Corpuscular Volume 92.9 fL (80.0-98.0); Monocytes Absolute Auto 0.7 X10*3/uL (0.1-1.2); Monocytes Percent Auto 8.5 % (2-11); Neutrophils Absolute Auto 5.91 x10*3/uL (2.0-8.3); Neutrophils Percent Auto 70.4 % (45-73); Platelet Count 232 X10*3/uL (160-400); Red Blood Count 3.94 X10*6/uL (4.60-5.80); Red Cell Distribution Width 12.5 % (11.0-16.0); White Blood Count 8.4 X10*3/uL (4.8-10.8)
[2021-06-16 15:43] LABS: INTERNATIONAL NORM RATIO 1.2 (0.9-1.1); Prothrombin Time 13.3 SEC (9.9-13.0)
[2021-06-16 16:00] LABS: Anion Gap 13 (12-20); Blood Urea Nitrogen 14 mg/dL (9-16); Calcium 9.1 mg/dL (8.4-10.2); Carbon Dioxide 29 mmol/L (22-29); Chloride 103 mmol/L (96-108); Estimated Glomerular Filt Rate > 60; Glucose Random 85 mg/dL (60-115); Potassium 3.6 mmol/L (3.3-5.1); Sodium 141 mmol/L (135-145)
== END 2021-06-16 14:15 | disposition home or self-care (01) ==
LOC: HO.LAB 14:14
PROVIDERS: PCP Internal Medicine; Referring Provider Internal Medicine; Visit Provider Internal Medicine
DX: R06.02 Shortness of breath (principal); I10 Essential (primary) hypertension; E66.01 Morbid (severe) obesity due to excess calories; Z68.41 Body mass index [BMI] 40.0-44.9, adult
CPT/HCPCS: 36415; 80048; 85025; 85610; 93005; 99212

== ENCOUNTER 2021-07-13 12:02 | Outpatient (REF) | payer MEDICAID, SELFPAY ==
[2021-07-13 12:52] LABS: COVID-19 Test Negative (Negative)
== END 2021-07-13 12:03 | disposition home or self-care (01) ==
LOC: HO.LAB 12:02
PROVIDERS: PCP Internal Medicine; Visit Provider Internal Medicine
DX: Z20.822 Contact with and (suspected) exposure to COVID-19 (principal)
CPT/HCPCS: 36415; 87635; C9803

== ENCOUNTER → 2021-08-28 10:17 | Outpatient (BNVA) | payer MEDICAID, SELFPAY | PROVIDERS: PCP Internal Medicine; Visit Provider Urology | DX: N32.0 Bladder-neck obstruction (principal) | CPT/HCPCS: 52000; 99212 ==

== ENCOUNTER 2021-09-11 16:12 | Emergency (ER) | payer MEDICAID, SELFPAY ==
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
[2021-09-11 17:07] VITALS: BP 122/88; PULSE 87; RESP 20; TEMP 36.7; O2SAT 96; BMI 40.4
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
[2021-09-11 19:28] VITALS: BP 147/85; PULSE 89; RESP 16; TEMP 37.4; O2SAT 93
== END 2021-09-11 20:47 | disposition home or self-care (01) ==
PROVIDERS: Emergency Provider Emergency Medicine Emergency Medical Services; PCP Internal Medicine
DX: S62.306A Unspecified fracture of fifth metacarpal bone, right hand, initial encounter for closed fracture (principal); M79.641 Pain in right hand; W00.0XXA Fall on same level due to ice and snow, initial encounter; Y93.9 Activity, unspecified; Y92.9 Unspecified place or not applicable; Y99.9 Unspecified external cause status; Z79.899 Other long term (current) drug therapy; Z87.891 Personal history of nicotine dependence
CPT/HCPCS: 29130; 73130; 99283; 99284

== ENCOUNTER 2021-09-13 11:08 | Emergency (ER) | payer MEDICAID, SELFPAY ==
[2021-09-13 11:13] VITALS: BP 113/62; BP 170/80; PULSE 81; PULSE 83; RESP 18; TEMP 36.7; O2SAT 97; O2SAT 98; BMI 40.4
--- NOTE | 2021-09-13 11:44 | ED_ITS ---
HPI - General Adult General Chief complaint: Extremity Injury, Lower Stated complaint: L ARM PAIN Time Seen by Provider: 09/13/21 11:36 History of Present Illness HPI narrative: Pt states richi wrap is coming off of splint and he is having pain and does not have anything for pain control. Not taking tylenol or motrin. Onset (ago): day(s) Severity: moderate Quality: aching Treatments prior to arrival: none Related Data Home Medications Medication Instructions Recorded Confirmed clotrimazole 1 % topical cream 1 applic TOPICAL BID 05/17/20 06/16/21 diphenhydramine HCl 25 mg 25 mg PO Q6H PRN 05/17/20 06/16/21 capsule (Banophen) fluticasone propionate 110 1 puff INHALATION Q12H 05/17/20 06/16/21 mcg/actuation HFA aerosol inhaler (Flovent HFA) fluticasone propionate 50 1 spray INTRANASAL DAILY 05/17/20 06/16/21 mcg/actuation nasal spray,suspension omeprazole 20 mg tablet,delayed 20 mg PO BID 05/17/20 06/16/21 release trazodone 100 mg tablet 100 mg PO BEDTIME PRN 05/17/20 06/16/21 docusate sodium 100 mg capsule 100 mg PO DAILY 09/17/20 06/16/21 (Colace) doxycycline hyclate 100 mg 100 mg PO BID 09/17/20 06/16/21 capsule verapamil 200 mg capsule 24hr 200 mg PO BEDTIME 09/17/20 06/16/[address],ext.release naloxone 4 mg/actuation nasal 4 mg INTRANASAL Q2M PRN 10/01/20 06/16/21 spray (Narcan) acetaminophen 500 mg tablet 1 tab PO Q6-8H PRN 06/02/21 06/16/21 albuterol sulfate 90 2 puff PO Q6-8H PRN 06/02/21 06/16/21 mcg/actuation aerosol inhaler (ProAir HFA) allopurinol 300 mg tablet 1 tab PO DAILY 06/02/21 06/16/21 bupropion HCl 150 mg 24 hr 1 tab PO QPM 06/02/21 06/16/21 tablet, extended release bupropion HCl 300 mg 24 hr 1 tab PO QAM 06/02/21 06/16/21 tablet, extended release celecoxib 200 mg capsule 200 mg PO DAILY 06/02/21 06/16/21 (Celebrex) ezetimibe 10 mg tablet 10 mg PO DAILY 06/02/21 06/16/21 losartan 50 mg tablet 50 mg PO DAILY 06/02/21 06/16/21 ptajlhur-yhw-fulas acid 0.4 1 tab PO DAILY 06/02/21 06/16/21 mg-lycopene 300 mcg-lutein 250 mcg tablet (Centrum Silver) clonazepam 1 mg tablet 1 tab PO BID 06/03/21 06/16/21 venlafaxine 150 mg 1 cap PO BEDTIME 06/03/21 06/16/21 capsule,extended release 24 hr nicotine 10 mg inhalation 0 inh INHALATION QID PRN 06/05/21 06/16/21 cartridge (Nicotrol) multivitamin-iron 9 mg-folic 1 tab PO DAILY 08/28/21 acid 400 mcg-calcium and minerals tablet (Thera-M) omeprazole 20 mg 20 mg PO BID 08/28/21 capsule,delayed release verapamil 300 mg capsule 24hr 300 mg PO BEDTIME 08/28/[address],ext.release Previous Rx's Medication Instructions Recorded lidocaine 5 % topical patch 1 patch TOPICAL DAILY #15 ea 05/27/20 (Lidoderm) cyclobenzaprine 10 mg tablet 10 mg PO TID PRN #20 tab 10/10/20 umeclidinium 62.5 mcg/actuation 1 inh INHALATION DAILY 30 Days #1 03/24/21 blister powder for inhalation ea (Incruse Ellipta) bisacodyl 5 mg tablet,delayed 10 mg PO ONCE 1 Days #2 tab 04/27/21 release (Dulcolax (bisacodyl)) polyethylene glycol 3350 17 238 g PO ONCE 1 Days #238 g 04/27/21 gram/dose oral powder (Miralax) terazosin 5 mg capsule 5 mg PO BEDTIME 90 Days #90 cap 08/28/21 acetaminophen 325 mg tablet 650 mg PO Q4-6H PRN #30 tab 09/13/21 (Tylenol) nabumetone 500 mg tablet 500 mg PO BID #20 tab 09/13/21 Allergies Allergy/AdvReac Type Severity Reaction Status Date / Time prednisone Allergy Unknown itching Verified 09/11/21 17:54 lisinopril AdvReac Cough Verified 09/11/21 17:54 [id number] AdvReac memory Verified 09/11/21 17:54 Reductase Inhibitor loss Vicodin Allergy Unknown nausea and Uncoded 06/16/21 14:20 vomiting Review of Systems Verdana 4l Review of Systems: Verdana 4d Verdana 4d Constitutional : No trauma, No Weight loss, No Fever, No Chills, ENT/Mouth : No Hearing loss, No Ear Pain, No Nasal Congestion, No Sinus Pain, No Hoarseness, No sore throat, No Rhinorrhea, No Swallowing Difficulty Cardiovascular : No ChestChest Pain, No SOB Respiratory : No Cough, No Dyspnea Gastrointestinal : No Nausea, No Vomiting, No Diarrhea, No abdominal Pain, Genitourinary : No Dysuria, No Urinary Frequency, dark colored urine Musculoskeletal : no Back pain, No neck pain, No joint stiffness, No joint swelling Skin : No Skin Lesions, No rash or signs of infection Neuro : No Weakness, No radiation, No Numbness, No Paresthesias, No headache, Denies history of IV drug usage. Psych : No SI/HI/thoughts of self injury Yes all other systems are reviewed and are negative [facility] Past Medical History Attestation statement: The following information was validated with the patient. Medical History Anxiety Arthritis Asthma Chronic pain COPD (chronic obstructive pulmonary disease) Degenerative joint disease of low back Depression Emphysema of lung Gout Hiatal hernia Hypercholesterolemia Hypertension Morbid obesity Neuropathy SUNDAR (obstructive sleep apnea) Polyarthralgia Sciatica Surgical History History of hand surgery History of open reduction and internal fixation (ORIF) procedure Family History Family History Father No problems noted. Mother Arthritis of knee Sister Obesity Son No problems noted. Daughter Psoriasis Manic depression Social History Social History Household Members: None Are you a primary healthcare network consultant to a significant other at home: No Do you presently have visiting nurse or other home services: Yes (Home Health Aid) Alcohol intake: former Patient Tobacco Use Status: Former Tobacco user Quit Date: May 2021 Tobacco use type: Cigarette Use of substances other than those prescribed or required for medical reasons: No Advance Directives: No Advance Directives Information Provided: No Current occupational status: unemployed Current occupation: Left Handed Physical Exam Verdana 4l Vital Signs: Verdana 4d Verdana 4d Vital Signs: Verdana 4d Verdana 4Bd Last Vital Signs Verdana 4d Environmental Sampler New 4d Inez New 4d Temp 98.0 F 09/13/21 11:13 Environmental Sampler New 4d Pulse 81 09/13/21 11:13 Environmental Sampler New 4d Resp 18 09/13/21 11:13 BP 113/62 09/13/21 11:13 Pulse Ox 97 09/13/21 11:13 BMI result Body Mass Index 40.4 vital signs have been reviewed as normal and appeared to be correct.? Blood pressure normal.? Heart rate normal.? Respiration rate normal.? Temperature normal.? Oxygen saturation normal. .Appearance: Alert. Oriented X3. No acute distress. ? Head: Normal external exam. Normocephalic. Atraumatic.? Eyes: PERRLA. EOMI. Conjunctiva and sclera normal. Eyelids normal. ? ENT:Normal external exam CVS: Normal heart rate and rhythm. Respiratory: No respiratory distress. Abdomen: Soft and nontender. Back: ?No CVA tenderness.? Full range of motion noted. Skin: Skin warm and dry.? Normal skin color.? Normal skin turgor. No rashes/lesions/lacerations noted. good cap refills bilat upper extremities Extremities: ? Extremities exhibit normal range of motion.? Extremities nontender. Normal gait Neuro: Oriented X 3.? No motor deficit noted. No sensory deficit noted. Course Course Course Narrative: Pt concerned mentioned at discharge that he was concerned that his urine had been a little dark the past 2 days. He states he has been getting enough to drink. Denies back or abdominal pain or fever. Urine check and no sign of UTI, but protein present in urine. pt to follow up with pcp. Splint re-wrapped. neuro vasc intact after applied. Medical Decision Making Lab Data Labs: Lab Results 09/13/21 Range/Units 12:12 Urine Color YELLOW Urine Appearance HAZY Urine pH 6.0 (5.0-8.0) Ur Specific [place] >= 1.030 H (1.005-1.025) Urine Protein 1+ H (NEG-TRACE) MG/DL Urine Glucose (UA) NEG (NEG) MG/DL Urine Ketones 5 (NEG) MG/DL Urine Blood NEG (NEG) Urine Nitrite NEG (NEG) Ur Leukocyte Esterase NEG (NEG) Urine RBC 0 (0) /HPF Urine WBC 0-2 (0-4) /HPF Ur Squamous Epith Cells TRACE /LPF Amorphous Sediment TRACE /LPF Urine Bacteria NONE /LPF Hyaline Casts 1-4 /LPF Urine Mucus 2+ /LPF Discharge Plan Discharge Clinical Impression: Fracture of finger of left hand Patient Disposition: Home, Self-Care Instructions: Finger Fracture (ED), Splint Care (ED) Additional Instructions: Follow up with orthopedist as planned. Try to keep left arm elevated at or above the level of your heart. okay to apply ice over splint. return if worse. Prescriptions: New nabumetone 500 mg tablet 500 mg PO BID Qty: 20 0RF acetaminophen [Tylenol] 325 mg tablet 650 mg PO Q4-6H PRN (Reason: pain) Qty: 30 0RF No Action Incruse Ellipta 62.5 mcg/actuation blister with device 1 inh inhalation DAILY 30 Days Qty: 1 6RF polyethylene glycol 3350 [Miralax] 17 gram/dose powder 238 g PO ONCE 1 Days Qty: 238 0RF Rx Instructions: take orally as directed prior to colonoscopy bisacodyl [Dulcolax (bisacodyl)] 5 mg tablet,delayed release (DR/EC) 10 mg PO ONCE 1 Days Qty: 2 0RF Rx Instructions: take orally as directed prior to colonoscopy cyclobenzaprine 10 mg tablet 10 mg PO TID PRN (Reason: muscle pain or spasm) Qty: 20 0RF lidocaine [Lidoderm] 5 % adhesive patch,medicated 1 patch topical DAILY Qty: 15 0RF Rx Instructions: leave on most painful area for up to 12 hrs allopurinol 300 mg tablet 1 tab PO DAILY 0RF albuterol sulfate [ProAir HFA] 90 mcg/actuation HFA aerosol inhaler 2 puff PO Q6-8H PRN (Reason: Wheezing) 0RF Centrum Silver 0.4-300-250 mg-mcg-mcg tablet 1 tab PO DAILY 0RF acetaminophen 500 mg tablet 1 tab PO Q6-8H PRN (Reason: Pain) 0RF losartan 50 mg Tablet 50 mg PO DAILY 0RF celecoxib [Celebrex] 200 mg Capsule 200 mg PO DAILY 0RF ezetimibe 10 mg Tablet 10 mg PO DAILY 0RF bupropion HCl 300 mg tablet extended release 24 hr 1 tab PO QAM 0RF bupropion HCl 150 mg tablet extended release 24 hr 1 tab PO QPM 0RF clonazepam 1 mg tablet 1 tab PO BID 0RF venlafaxine 150 mg capsule,extended release 24hr 1 cap PO BEDTIME 0RF doxycycline hyclate 100 mg capsule 100 mg PO BID 0RF verapamil 200 mg capsule, [address] 200 mg PO BEDTIME 0RF docusate sodium [Colace] 100 mg capsule 100 mg PO DAILY 0RF Nicotrol 10 mg cartridge 0 inh inhalation QID PRN0RF fluticasone propionate 50 mcg/actuation spray,suspension 1 spray intranasal DAILY 0RF Rx Instructions: administer into each nostril Flovent HFA 110 mcg/actuation HFA aerosol inhaler 1 puff inhalation Q12H 0RF omeprazole 20 mg tablet,delayed release (DR/EC) 20 mg PO BID 0RF diphenhydramine HCl [Banophen] 25 mg capsule 25 mg PO Q6H PRN (Reason: Allergy Symptoms) 0RF clotrimazole 1 % cream 1 applic topical BID 0RF trazodone 100 mg tablet 100 mg PO BEDTIME PRN (Reason: Sleep) 0RF Narcan 4 mg/actuation spray,non-aerosol 4 mg intranasal Q2M PRN (Reason: Opioid Overdose) 0RF Rx Instructions: spray 1 dose into ONE nostril; alternate nostrils w each dose until help arrives Thera-M 9 mg iron-400 mcg tablet 1 tab PO DAILY 0RF verapamil 300 mg capsule, [address] 300 mg PO BEDTIME 0RF omeprazole 20 mg capsule,delayed release(DR/EC) 20 mg PO BID 0RF terazosin 5 mg capsule 5 mg PO BEDTIME 90 Days Qty: 90 1RF Interventions: ED Discharge Assessment Last Done: 09/13/21 12:34 Discharge Date/Time: 09/13/21 12:35
[2021-09-13 12:23] LABS: Appearance Urine HAZY; Color Urine YELLOW; Glucose Urine UA NEG (NEG); Leukocyte Esterase Urine NEG (NEG); Nitrite Urine NEG (NEG); Specific Gravity - Urine >= 1.030 (1.005-1.025); UACC Culture Trigger NO; Urine Blood NEG (NEG); Urine Ketones 5 MG/DL (NEG); Urine Protein 1+ MG/DL (NEG-TRACE)
--- NOTE | 2021-09-13 12:32 | PC.NURSE ---
Patient brought in by EMS for arm pain after running out of tylenol/ibuprofen at home. Patient is alert and oriented. Understands need to follow up with ortho. Respirations regular and even. Skin PWD. Patient reports darker urine and requests a US. US sent. patient requests to be discharged prior to results coming back, ok by provider.
[2021-09-13 12:33] LABS: Mucus Urine 2+ /LPF; Squamous Epithelial Cell Urine TRACE /LPF
[2021-09-13 12:35] LABS: Amorphous Sediment Urine TRACE /LPF; RBC Urine 0 /HPF (0)
[2021-09-13 12:36] LABS: WBC Urine 0-2 /HPF (0-4)
== END 2021-09-13 12:35 | disposition home or self-care (01) ==
PROVIDERS: Physician Assistant; Emergency Provider Emergency Medicine
DX: M79.602 Pain in left arm (principal); M79.642 Pain in left hand; Z87.891 Personal history of nicotine dependence; Z79.899 Other long term (current) drug therapy
CPT/HCPCS: 29130; 81001; 99284

== ENCOUNTER → 2021-09-17 08:41 | Outpatient (BNVA) | payer MEDICAID, SELFPAY | PROVIDERS: Visit Provider Physician Assistant | DX: S62.326A Displaced fracture of shaft of fifth metacarpal bone, right hand, initial encounter for closed fracture (principal) | CPT/HCPCS: 29125; 99212 ==

== ENCOUNTER 2021-09-21 07:00 | Day surgery (SDC) | payer MEDICAID, SELFPAY ==
--- NOTE | 2021-09-18 13:26 | P.CONAN_ITS ---
Documented by User: Patrizia Fowler NP 09/18/21 13:29 HPI - Anesthesia Eval Consult details Narrative: 51yo M for Left 5th Metacarpal ORIF closed vs open Cardiac cleared Based on preliminary information, catheterization with normal coronaries with mildly elevated filling pressures.? May proceed with foot surgery tuesday as planned.? Low cardiac risk.? Blood pressure issues around the perioperative time Will need to be managed accordingly.? In the long-term, we will see him in the office and make appropriate adjustments. Pulmo cleared Patient is at low risk for pulmonary preoperative complications for proposed endoscopy/colonoscopy either under general anesthesia or monitored anesthesia care. [facility] Active Problems Active Problems: All Active Problems (Updated 09/14/21 @ 00:01 by Background Daemon) Bladder outlet obstruction (Acute) Morbid obesity (Acute) Essential hypertension (Acute) Shortness of breath (Acute) Preop pulmonary/respiratory exam (Acute) Primary osteoarthritis, left shoulder (Acute) Primary osteoarthritis, right shoulder (Acute) Primary osteoarthritis of both knees (Acute) Chronic, continuous use of opioids (Acute) Encounter for screening colonoscopy (Acute) Hemorrhoids (Acute) Dyspnea on exertion (Acute) Trochanteric bursitis, right hip (Acute) Chronic SI joint pain (Acute) Chronic constipation (Acute) Nocturia more than twice per night (Acute) Past Medical History Medical History Anxiety Arthritis Asthma Chronic pain COPD (chronic obstructive pulmonary disease) Degenerative joint disease of low back Depression Emphysema of lung Gout Hiatal hernia Hypercholesterolemia Hypertension Morbid obesity Neuropathy SUNDAR (obstructive sleep apnea) Polyarthralgia Sciatica Family History Family History Father No problems noted. Mother Arthritis of knee Sister Obesity Son No problems noted. Daughter Psoriasis Manic depression Surgical History Surgical History History of hand surgery History of open reduction and internal fixation (ORIF) procedure Social History Social History Household Members: None Are you a primary district manager primary care sales to a significant other at home: No Do you presently have visiting nurse or other home services: Yes (Home Health Aid) Alcohol intake: former Patient Tobacco Use Status: Former Tobacco user Quit Date: May 2021 Tobacco use type: Cigarette Years Smoked: 42 Smoked in Last 30 Days: No Use of substances other than those prescribed or required for medical reasons: Yes Substance Use Frequency: Weekly Are you DNR?: No Advance Directives: No Advance Directives Information Provided: Yes Current occupational status: unemployed Current occupation: Left Handed Meds Allergies Allergy/AdvReac Type Severity Reaction Status Date / Time prednisone Allergy Unknown itching Verified 09/21/21 08:10 lisinopril AdvReac Cough Verified 09/21/21 08:10 [id number] AdvReac memory Verified 09/21/21 08:10 Reductase Inhibitor loss Vicodin Allergy Unknown nausea and Uncoded 06/16/21 14:20 vomiting Home Medications Medication Instructions Recorded Confirmed Last Taken Type clotrimazole 1 1 applic 05/17/20 06/16/21 Unknown History % topical cream TOPICAL BID diphenhydramine 25 mg PO Q6H 05/17/20 06/16/21 09/21/21 06:30 History HCl 25 mg PRN capsule (Banophen) fluticasone 1 puff 05/17/20 06/16/21 09/21/21 06:30 History propionate 110 INHALATION Q12H mcg/actuation HFA aerosol inhaler (Flovent HFA) fluticasone 1 spray 05/17/20 06/16/21 Unknown History propionate 50 INTRANASAL DAILY mcg/actuation nasal spray,suspensio n omeprazole 20 20 mg PO BID 05/17/20 06/16/21 Unknown History mg tablet,delayed release trazodone 100 100 mg PO 05/17/20 06/16/21 Unknown History mg tablet BEDTIME PRN docusate sodium 100 mg PO DAILY 09/17/20 06/16/21 Unknown History 100 mg capsule (Colace) verapamil 200 200 mg PO 09/17/20 06/16/21 Unknown History mg capsule 24hr BEDTIME pellet CT,ext.release naloxone 4 4 mg INTRANASAL 10/01/20 06/16/21 Unknown History mg/actuation Q2M PRN nasal spray (Narcan) acetaminophen 1 tab PO Q6-8H 06/02/21 06/16/21 Unknown History 500 mg tablet PRN albuterol 2 puff PO Q6-8H 06/02/21 06/16/21 Unknown History sulfate 90 PRN mcg/actuation aerosol inhaler (ProAir HFA) allopurinol 300 1 tab PO DAILY 06/02/21 06/16/21 09/21/21 06:30 History mg tablet bupropion HCl 1 tab PO QPM 06/02/21 06/16/21 Unknown History 150 mg 24 hr tablet, extended release bupropion HCl 1 tab PO QAM 06/02/21 06/16/21 09/21/21 06:30 History 300 mg 24 hr tablet, extended release celecoxib 200 200 mg PO DAILY 06/02/21 06/16/21 09/21/21 06:30 History mg capsule (Celebrex) ezetimibe 10 mg 10 mg PO DAILY 06/02/21 06/16/21 Unknown History tablet losartan 50 mg 50 mg PO DAILY 06/02/21 06/16/21 Unknown History tablet [id number]-dd 1 tab PO DAILY 06/02/21 06/16/21 09/21/21 06:30 History lic acid 0.4 mg-lycopene 300 mcg-lutein 250 mcg tablet (Centrum Silver) clonazepam 1 mg 1 tab PO BID 06/03/21 06/16/21 Unknown History tablet venlafaxine 150 1 cap PO 06/03/21 06/16/21 Unknown History mg BEDTIME capsule,extende d release 24 hr nicotine 10 mg 0 inh 06/05/21 06/16/21 Unknown History inhalation INHALATION QID PRN cartridge (Nicotrol) multivitamin-ir 1 tab PO DAILY 08/28/21 Unknown History on 9 mg-folic acid 400 mcg-calcium and minerals tablet (Thera-M) omeprazole 20 20 mg PO BID 08/28/21 09/21/21 06:30 History mg capsule,delayed release verapamil 300 300 mg PO 08/28/21 Unknown History mg capsule 24hr BEDTIME pellet CT,ext.release Exam Exam Date and Time: September 18, 2021 1326 Pertinent Lab Results Pertinent Lab Results: Laboratory Tests 06/16/21 06/16/21 15:18 15:18 WBC 8.4 Hgb 12.1 L Hct 36.6 L Plt Count 232 Sodium 141 Potassium 3.6 Chloride 103 Carbon Dioxide 29 BUN 14 Creatinine 1.02 Narrative Narrative: EKG 06/2021 sinus rhythm at 85/Min; nonspecific ST-T changes; normal NC/QTc Assessment and Plan Assessment Anesthesia Assessment: Chart Reviewed Documented by User: Levi Arthur MD 09/21/21 09:36 PMFSH Past Medical History Medical History Anxiety Arthritis Asthma Chronic pain COPD (chronic obstructive pulmonary disease) Degenerative joint disease of low back Depression Emphysema of lung Gout Hiatal hernia Hypercholesterolemia Hypertension Morbid obesity Neuropathy SUNDAR (obstructive sleep apnea) Polyarthralgia Sciatica Family History Family History Father No problems noted. Mother Arthritis of knee Sister Obesity Son No problems noted. Daughter Psoriasis Manic depression Family history of problems with anesthesia: No Surgical History Surgical History History of hand surgery History of open reduction and internal fixation (ORIF) procedure History of Problems with Anesthesia: No Social History Social History Household Members: None Are you a primary district manager primary care sales to a significant other at home: No Do you presently have visiting nurse or other home services: Yes (Home Health Aid) Alcohol intake: former Patient Tobacco Use Status: Former Tobacco user Quit Date: May 2021 Tobacco use type: Cigarette Years Smoked: 42 Smoked in Last 30 Days: No Use of substances other than those prescribed or required for medical reasons: Yes Substance Use Frequency: Weekly Are you DNR?: No Advance Directives: No Advance Directives Information Provided: Yes Current occupational status: unemployed Current occupation: Left Handed Meds Allergies Allergy/AdvReac Type Severity Reaction Status Date / Time prednisone Allergy Unknown itching Verified 09/21/21 08:10 lisinopril AdvReac Cough Verified 09/21/21 08:10 [id number] AdvReac memory Verified 09/21/21 08:10 Reductase Inhibitor loss Vicodin Allergy Unknown nausea and Uncoded 06/16/21 14:20 vomiting Home Medications Medication Instructions Recorded Confirmed Last Taken Type clotrimazole 1 1 applic 05/17/20 06/16/21 Unknown History % topical cream TOPICAL BID diphenhydramine 25 mg PO Q6H 05/17/20 06/16/21 09/21/21 06:30 History HCl 25 mg PRN capsule (Banophen) fluticasone 1 puff 05/17/20 06/16/21 09/21/21 06:30 History propionate 110 INHALATION Q12H mcg/actuation HFA aerosol inhaler (Flovent HFA) fluticasone 1 spray 05/17/20 06/16/21 Unknown History propionate 50 INTRANASAL DAILY mcg/actuation nasal spray,suspensio n omeprazole 20 20 mg PO BID 05/17/20 06/16/21 Unknown History mg tablet,delayed release trazodone 100 100 mg PO 05/17/20 06/16/21 Unknown History mg tablet BEDTIME PRN docusate sodium 100 mg PO DAILY 09/17/20 06/16/21 Unknown History 100 mg capsule (Colace) verapamil 200 200 mg PO 09/17/20 06/16/21 Unknown History mg capsule 24hr BEDTIME pellet CT,ext.release naloxone 4 4 mg INTRANASAL 10/01/20 06/16/21 Unknown History mg/actuation Q2M PRN nasal spray (Narcan) acetaminophen 1 tab PO Q6-8H 06/02/21 06/16/21 Unknown History 500 mg tablet PRN albuterol 2 puff PO Q6-8H 06/02/21 06/16/21 Unknown History sulfate 90 PRN mcg/actuation aerosol inhaler (ProAir HFA) allopurinol 300 1 tab PO DAILY 06/02/21 06/16/21 09/21/21 06:30 History mg tablet bupropion HCl 1 tab PO QPM 06/02/21 06/16/21 Unknown History 150 mg 24 hr tablet, extended release bupropion HCl 1 tab PO QAM 06/02/21 06/16/21 09/21/21 06:30 History 300 mg 24 hr tablet, extended release celecoxib 200 200 mg PO DAILY 06/02/21 06/16/21 09/21/21 06:30 History mg capsule (Celebrex) ezetimibe 10 mg 10 mg PO DAILY 06/02/21 06/16/21 Unknown History tablet losartan 50 mg 50 mg PO DAILY 06/02/21 06/16/21 Unknown History tablet [id number] 1 tab PO DAILY 06/02/21 06/16/21 09/21/21 06:30 History lic acid 0.4 mg-lycopene 300 mcg-lutein 250 mcg tablet (Centrum Silver) clonazepam 1 mg 1 tab PO BID 06/03/21 06/16/21 Unknown History tablet venlafaxine 150 1 cap PO 06/03/21 06/16/21 Unknown History mg BEDTIME capsule,extende d release 24 hr nicotine 10 mg 0 inh 06/05/21 06/16/21 Unknown History inhalation INHALATION QID PRN cartridge (Nicotrol) multivitamin-ir 1 tab PO DAILY 08/28/21 Unknown History on 9 mg-folic acid 400 mcg-calcium and minerals tablet (Thera-M) omeprazole 20 20 mg PO BID 08/28/21 09/21/21 06:30 History mg capsule,delayed release verapamil 300 300 mg PO 08/28/21 Unknown History mg capsule 24hr BEDTIME pellet CT,ext.release Exam Airway Mallampati Class: III TM Dist: >3cm Neck ROM: Full Loose/Missing/Broken Teeth: No Heart: [id number] Lungs: cta b/l Assessment and Plan Assessment Anesthesia Assessment: Anesthesia Plan Discussed Final Anesthetic Review Family History of Problems with Anesthesia: No History of Problems with Anesthesia: No NPO: Yes ASA Class: III Final Preanesthetic Review: No Changes in Pt Med Stat, Meds/Allgs Chart Reviewed, Consent Obtained/Reviewed and Anes Risks/Benef Reviewed Patient Risk: Intermediate Procedure Risk: Low Assessment/Block/Sedation in SS: Assess/Block/Sedation-SS Anesthetic Plan Anesthetic Plan: GA and Agree w/ Assess. and Plan Disposition: Standard PACU
--- NOTE | 2021-09-18 13:26 | HO.ANESPROP2 ---
Documented by User: Patrizia Fowler NP 09/18/21 13:29 HPI - Anesthesia Eval Consult details Narrative: 51yo M for Left 5th Metacarpal ORIF closed vs open Cardiac cleared Based on preliminary information, catheterization with normal coronaries with mildly elevated filling pressures.? May proceed with foot surgery tuesday as planned.? Low cardiac risk.? Blood pressure issues around the perioperative time Will need to be managed accordingly.? In the long-term, we will see him in the office and make appropriate adjustments. Pulmo cleared Patient is at low risk for pulmonary preoperative complications for proposed endoscopy/colonoscopy either under general anesthesia or monitored anesthesia care. [facility] Active Problems Active Problems: All Active Problems (Updated 09/14/21 @ 00:01 by Background Daemon) Bladder outlet obstruction (Acute) Morbid obesity (Acute) Essential hypertension (Acute) Shortness of breath (Acute) Preop pulmonary/respiratory exam (Acute) Primary osteoarthritis, left shoulder (Acute) Primary osteoarthritis, right shoulder (Acute) Primary osteoarthritis of both knees (Acute) Chronic, continuous use of opioids (Acute) Encounter for screening colonoscopy (Acute) Hemorrhoids (Acute) Dyspnea on exertion (Acute) Trochanteric bursitis, right hip (Acute) Chronic SI joint pain (Acute) Chronic constipation (Acute) Nocturia more than twice per night (Acute) Past Medical History Medical History Anxiety Arthritis Asthma Chronic pain COPD (chronic obstructive pulmonary disease) Degenerative joint disease of low back Depression Emphysema of lung Gout Hiatal hernia Hypercholesterolemia Hypertension Morbid obesity Neuropathy SUNDAR (obstructive sleep apnea) Polyarthralgia Sciatica Family History Family History Father No problems noted. Mother Arthritis of knee Sister Obesity Son No problems noted. Daughter Psoriasis Manic depression Surgical History Surgical History History of hand surgery History of open reduction and internal fixation (ORIF) procedure Social History Social History Household Members: None Are you a primary healthcare recruiter to a significant other at home: No Do you presently have visiting nurse or other home services: Yes (Home Health Aid) Alcohol intake: former Patient Tobacco Use Status: Former Tobacco user Quit Date: May 2021 Tobacco use type: Cigarette Years Smoked: 42 Smoked in Last 30 Days: No Use of substances other than those prescribed or required for medical reasons: Yes Substance Use Frequency: Weekly Are you DNR?: No Advance Directives: No Advance Directives Information Provided: Yes Current occupational status: unemployed Current occupation: Left Handed Meds Allergies Allergy/AdvReac Type Severity Reaction Status Date / Time prednisone Allergy Unknown itching Verified 09/21/21 08:10 lisinopril AdvReac Cough Verified 09/21/21 08:10 Lceprup-VEL-CtS Reductase AdvReac memory Verified 09/21/21 08:10 Inhibitor loss Vicodin Allergy Unknown nausea and Uncoded 06/16/21 14:20 vomiting Home Medications Medication Instructions Recorded Confirmed Last Taken Type clotrimazole 1 % topical cream 1 applic TOPICAL BID 05/17/20 06/16/21 Unknown History diphenhydramine HCl 25 mg capsule 25 mg PO Q6H PRN 05/17/20 06/16/21 09/21/21 06:30 History (Banophen) fluticasone propionate 110 1 puff INHALATION Q12H 05/17/20 06/16/21 09/21/21 06:30 History mcg/actuation HFA aerosol inhaler (Flovent HFA) fluticasone propionate 50 1 spray INTRANASAL DAILY 05/17/20 06/16/21 Unknown History mcg/actuation nasal spray,suspension omeprazole 20 mg tablet,delayed 20 mg PO BID 05/17/20 06/16/21 Unknown History release trazodone 100 mg tablet 100 mg PO BEDTIME PRN 05/17/20 06/16/21 Unknown History docusate sodium 100 mg capsule 100 mg PO DAILY 09/17/20 06/16/21 Unknown History (Colace) verapamil 200 mg capsule 24hr 200 mg PO BEDTIME 09/17/20 06/16/[address],ext.release naloxone 4 mg/actuation nasal 4 mg INTRANASAL Q2M PRN 10/01/20 06/16/21 Unknown History spray (Narcan) acetaminophen 500 mg tablet 1 tab PO Q6-8H PRN 06/02/21 06/16/21 Unknown History albuterol sulfate 90 mcg/actuation 2 puff PO Q6-8H PRN 06/02/21 06/16/21 Unknown History aerosol inhaler (ProAir HFA) allopurinol 300 mg tablet 1 tab PO DAILY 06/02/21 06/16/21 09/21/21 06:30 History bupropion HCl 150 mg 24 hr tablet, 1 tab PO QPM 06/02/21 06/16/21 Unknown History extended release bupropion HCl 300 mg 24 hr tablet, 1 tab PO QAM 06/02/21 06/16/21 09/21/21 06:30 History extended release celecoxib 200 mg capsule (Celebrex) 200 mg PO DAILY 06/02/21 06/16/21 09/21/21 06:30 History ezetimibe 10 mg tablet 10 mg PO DAILY 06/02/21 06/16/21 Unknown History losartan 50 mg tablet 50 mg PO DAILY 06/02/21 06/16/21 Unknown History idiicnoo-sbu-elekw acid 0.4 1 tab PO DAILY 06/02/21 06/16/21 09/21/21 06:30 History mg-lycopene 300 mcg-lutein 250 mcg tablet (Centrum Silver) clonazepam 1 mg tablet 1 tab PO BID 06/03/21 06/16/21 Unknown History venlafaxine 150 mg 1 cap PO BEDTIME 06/03/21 06/16/21 Unknown History capsule,extended release 24 hr nicotine 10 mg inhalation 0 inh INHALATION QID PRN 06/05/21 06/16/21 Unknown History cartridge (Nicotrol) multivitamin-iron 9 mg-folic acid 1 tab PO DAILY 08/28/21 Unknown History 400 mcg-calcium and minerals tablet (Thera-M) omeprazole 20 mg capsule,delayed 20 mg PO BID 08/28/21 09/21/21 06:30 History release verapamil 300 mg capsule 24hr 300 mg PO BEDTIME 08/28/[address],ext.release Exam Exam Date and Time: September 18, 2021 1326 Pertinent Lab Results Pertinent Lab Results: Laboratory Tests 06/16/21 06/16/21 15:18 15:18 WBC 8.4 Hgb 12.1 L Hct 36.6 L Plt Count 232 Sodium 141 Potassium 3.6 Chloride 103 Carbon Dioxide 29 BUN 14 Creatinine 1.02 Narrative Narrative: EKG 06/2021 sinus rhythm at 85/Min; nonspecific ST-T changes; normal NJ/QTc Assessment and Plan Assessment Anesthesia Assessment: Chart Reviewed Documented by User: Levi Arthur MD 09/21/21 09:36 PMFSH Past Medical History Medical History Anxiety Arthritis Asthma Chronic pain COPD (chronic obstructive pulmonary disease) Degenerative joint disease of low back Depression Emphysema of lung Gout Hiatal hernia Hypercholesterolemia Hypertension Morbid obesity Neuropathy SUNDAR (obstructive sleep apnea) Polyarthralgia Sciatica Family History Family History Father No problems noted. Mother Arthritis of knee Sister Obesity Son No problems noted. Daughter Psoriasis Manic depression Family history of problems with anesthesia: No Surgical History Surgical History History of hand surgery History of open reduction and internal fixation (ORIF) procedure History of Problems with Anesthesia: No Social History Social History Household Members: None Are you a primary healthcare recruiter to a significant other at home: No Do you presently have visiting nurse or other home services: Yes (Home Health Aid) Alcohol intake: former Patient Tobacco Use Status: Former Tobacco user Quit Date: May 2021 Tobacco use type: Cigarette Years Smoked: 42 Smoked in Last 30 Days: No Use of substances other than those prescribed or required for medical reasons: Yes Substance Use Frequency: Weekly Are you DNR?: No Advance Directives: No Advance Directives Information Provided: Yes Current occupational status: unemployed Current occupation: Left Handed Meds Allergies Allergy/AdvReac Type Severity Reaction Status Date / Time prednisone Allergy Unknown itching Verified 09/21/21 08:10 lisinopril AdvReac Cough Verified 09/21/21 08:10 Jsitejk-VBA-XbB Reductase AdvReac memory Verified 09/21/21 08:10 Inhibitor loss Vicodin Allergy Unknown nausea and Uncoded 06/16/21 14:20 vomiting Home Medications Medication Instructions Recorded Confirmed Last Taken Type clotrimazole 1 % topical cream 1 applic TOPICAL BID 05/17/20 06/16/21 Unknown History diphenhydramine HCl 25 mg capsule 25 mg PO Q6H PRN 05/17/20 06/16/21 09/21/21 06:30 History (Banophen) fluticasone propionate 110 1 puff INHALATION Q12H 05/17/20 06/16/21 09/21/21 06:30 History mcg/actuation HFA aerosol inhaler (Flovent HFA) fluticasone propionate 50 1 spray INTRANASAL DAILY 05/17/20 06/16/21 Unknown History mcg/actuation nasal spray,suspension omeprazole 20 mg tablet,delayed 20 mg PO BID 05/17/20 06/16/21 Unknown History release trazodone 100 mg tablet 100 mg PO BEDTIME PRN 05/17/20 06/16/21 Unknown History docusate sodium 100 mg capsule 100 mg PO DAILY 09/17/20 06/16/21 Unknown History (Colace) verapamil 200 mg capsule 24hr 200 mg PO BEDTIME 09/17/20 06/16/[address],ext.release naloxone 4 mg/actuation nasal 4 mg INTRANASAL Q2M PRN 10/01/20 06/16/21 Unknown History spray (Narcan) acetaminophen 500 mg tablet 1 tab PO Q6-8H PRN 06/02/21 06/16/21 Unknown History albuterol sulfate 90 mcg/actuation 2 puff PO Q6-8H PRN 06/02/21 06/16/21 Unknown History aerosol inhaler (ProAir HFA) allopurinol 300 mg tablet 1 tab PO DAILY 06/02/21 06/16/21 09/21/21 06:30 History bupropion HCl 150 mg 24 hr tablet, 1 tab PO QPM 06/02/21 06/16/21 Unknown History extended release bupropion HCl 300 mg 24 hr tablet, 1 tab PO QAM 06/02/21 06/16/21 09/21/21 06:30 History extended release celecoxib 200 mg capsule (Celebrex) 200 mg PO DAILY 06/02/21 06/16/21 09/21/21 06:30 History ezetimibe 10 mg tablet 10 mg PO DAILY 06/02/21 06/16/21 Unknown History losartan 50 mg tablet 50 mg PO DAILY 06/02/21 06/16/21 Unknown History vercassx-ura-dsomz acid 0.4 1 tab PO DAILY 06/02/21 06/16/21 09/21/21 06:30 History mg-lycopene 300 mcg-lutein 250 mcg tablet (Centrum Silver) clonazepam 1 mg tablet 1 tab PO BID 06/03/21 06/16/21 Unknown History venlafaxine 150 mg 1 cap PO BEDTIME 06/03/21 06/16/21 Unknown History capsule,extended release 24 hr nicotine 10 mg inhalation 0 inh INHALATION QID PRN 06/05/21 06/16/21 Unknown History cartridge (Nicotrol) multivitamin-iron 9 mg-folic acid 1 tab PO DAILY 08/28/21 Unknown History 400 mcg-calcium and minerals tablet (Thera-M) omeprazole 20 mg capsule,delayed 20 mg PO BID 08/28/21 09/21/21 06:30 History release verapamil 300 mg capsule 24hr 300 mg PO BEDTIME 08/28/[address],ext.release Exam Airway Mallampati Class: III TM Dist: >3cm Neck ROM: Full Loose/Missing/Broken Teeth: No Heart: [id number] Lungs: cta b/l Assessment and Plan Assessment Anesthesia Assessment: Anesthesia Plan Discussed Final Anesthetic Review Family History of Problems with Anesthesia: No History of Problems with Anesthesia: No NPO: Yes ASA Class: III Final Preanesthetic Review: No Changes in Pt Med Stat, Meds/Allgs Chart Reviewed, Consent Obtained/Reviewed and Anes Risks/Benef Reviewed Patient Risk: Intermediate Procedure Risk: Low Assessment/Block/Sedation in SS: Assess/Block/Sedation-SS Anesthetic Plan Anesthetic Plan: GA and Agree w/ Assess. and Plan Disposition: Standard PACU
[2021-09-21] VITALS (7 sets, daily range): BP systolic 113–154; BP diastolic 67–105; PULSE 78–93; RESP 16–18; TEMP 36.5–36.7; O2SAT 93–98; BMI 40.8
--- NOTE | ~2021-09-21 | FL_ITS ---
EXAMINATION: Intraoperative fluoroscopy CLINICAL INFORMATION: ORIF left fifth metacarpal COMPARISON: Left hand x-rays 09/11/2021 TECHNIQUE: Intraoperative fluoroscopy was provided for use by Dr. Dunn. A total of 3 images were saved to PACS. A radiologist was not present during imaging. Today's dictation is only for administrative purposes to document intraoperative fluoroscopic usage. TOTAL FLUOROSCOPIC TIME: 59 seconds FL/FL guidance in OR FINDINGS~\^^ Intraoperative fluoroscopy provided for use by Dr. Dunn. Please see operative note for detailed findings.
[2021-09-21] MEDS: Lactated Ringers 1,000 ML 100 ML IVCONT (08:50)
--- NOTE | 2021-09-21 09:59 | P.OP_ITS ---
Operative Note Operative Note Date of Service: 09/21/21 Narrative: Operative Note Narrative: Preop diagnosis: 1. Left 5th Metacarpal shaft fracture Postop diagnosis: Same Procedure: 1. left 5th Metacarpal fracture closed reduction percutaneous pinning 2. Ulnar nerve block Surgeon: Melissa Dunn MD Anesthesia: General Findings: Metacarpal fracture Implants: 0.062 K-wires times 2 Tourniquet time: None EBL: Minimal Specimen: None Drains: None Complications: None Disposition: Brought to the recovery room in stable condition Plan: Follow-up in 10-14 days for a wound check, postop radiographs and for placement in a short-arm cast or splint Anticipate K-wire removal in 4- 5 weeks based on interval bony healing Educate the patient that full fracture healing anticipated in approximately 8-12 weeks. Indications: The patient is 51 years old with left 5th metacarpal shaft fracture . The risks and benefits of operative treatment, including but not limited to risk of damage to blood vessels, nerves, tendons, infection, recurrence, delayed or nonunion of fracture, persistent pain or numbness, incomplete resolution of preoperative symptoms, or need for further surgery were discussed with the patient and they wished to proceed with surgery. Procedure: Once consent was obtained patient was brought back to the operating suite and placed in the operating table in a supine position. . Perioperative antibiotics and general anesthesia was administered by the anesthesia team. A tourniquet was applied to the proximal aspect of the left upper extremity and the limb was prepped and draped in a standard surgical fashion. Tourniquet was not inflated during the case. The FluoroScan was used during the case to assist with our fracture reduction and placement of all implants. A closed reduction was performed on the patie nt's left 5th metacarpal shaft fracture. I placed a single 0.062 K-wire retrograde through the head of the 5th metacarpal extending proximally across the fracture site to the base of the metacarpal. A 2nd 0.062 K-wire was placed transversely through the neck of the 5th metacarpal extending into the head and neck of the 4th metacarpal. Fracture alignment was assessed for both angular and rotational malalignment. Once satisfied with our fracture reduction and implant placement, the K-wires were bent and cut short and pin caps applied. Final fluoroscopic images were then obtained. The wounds were copiously irrigated with normal saline. An ulnar nerve block was then performed by infiltrating about the ulnar nerve at the wrist with some 1% lidocaine with epinephrine for postop pain control. A Sterile dressing and short volar splint extending from the fingertips to the volar forearm was applied. The patient appears to have tolerated the procedure well and with no complications. All digits were well vascularized at the conclusion of the case.
--- NOTE | 2021-09-21 09:59 | MHC.SHP ---
Pre-Procedural Eval Section A Date of Service: 09/21/21 The patient is an INPATIENT: No Changes since office visit: No Cold of Flu in the past 2 weeks, No New Medical Problems, No Changes in Medication and No Patient answered all questions The History & Physical has been completed within 30 days and I have reviewed it.: Yes Section B Chief Complaint: fx ofshaft of 5th metacarpal Allergies: Allergies Allergy/AdvReac Type Severity Reaction Status Date / Time prednisone Allergy Unknown itching Verified 09/21/21 08:10 lisinopril AdvReac Cough Verified 09/21/21 08:10 Vdfsrib-OXR-XkE Reductase AdvReac memory Verified 09/21/21 08:10 Inhibitor loss Vicodin Allergy Unknown nausea and Uncoded 06/16/21 14:20 vomiting Plan I have reviewed the history and physical and performed a pertinent physical examination on my patient. No changes have occurred unless specified.
[2021-09-21] MEDS: oxyCODONE HCl Immed Release 5 MG TABLET 10 MG PO (12:14)
== END 2021-09-21 12:59 | disposition home or self-care (01) ==
PROVIDERS: Visit Provider Orthopaedic Surgery
PROC: (CPT 26615; principal; 2021-09-21 09:30)
DX: S62.327A Displaced fracture of shaft of fifth metacarpal bone, left hand, initial encounter for closed fracture (principal); W23.1XXA Caught, crushed, jammed, or pinched between stationary objects, initial encounter; Y93.89 Activity, other specified; Y92.009 Unspecified place in unspecified non-institutional (private) residence as the place of occurrence of the external cause; Y99.8 Other external cause status; I10 Essential (primary) hypertension; J44.9 Chronic obstructive pulmonary disease, unspecified; G47.33 Obstructive sleep apnea (adult) (pediatric); E66.01 Morbid (severe) obesity due to excess calories; Z68.41 Body mass index [BMI] 40.0-44.9, adult; G62.9 Polyneuropathy, unspecified; M10.9 Gout, unspecified; Z88.8 Allergy status to other drugs, medicaments and biological substances; Z87.891 Personal history of nicotine dependence
CPT/HCPCS: 26608; J0690; J1100; J1170; J1885; J2250; J2370; J2405; J3010

== ENCOUNTER 2021-09-30 11:33 | Outpatient (REF) | payer MEDICAID, SELFPAY ==
--- NOTE | ~2021-09-30 | XR_ITS ---
EXAMINATION: XR hand LT min 3V CLINICAL INFORMATION: Pain COMPARISON: Hand radiographs 09/03/2021 TECHNIQUE: 3 views of the hand XR/XR hand LT min 3V FINDINGS/IMPRESSION: 2 fixation pins are now seen fixating the obliquely oriented fracture of the fifth metacarpal metadiaphysis. Obliquity of the lateral view somewhat limits assessment however alignment appears grossly anatomic. No bridging bony callus formation or significant periosteal reaction. Decreased soft tissue swelling in the ulnar aspect of the soft tissues of the hand.
== END 2021-09-30 11:34 | disposition home or self-care (01) ==
LOC: HO.HOSX 11:33
PROVIDERS: Visit Provider Physician Assistant
DX: S62.308D Unspecified fracture of other metacarpal bone, subsequent encounter for fracture with routine healing (principal)
CPT/HCPCS: 29085; 73130; 99212

== ENCOUNTER 2021-10-21 08:27 | Outpatient (REF) | payer MEDICAID, SELFPAY | END 2021-10-21 08:28 | disposition home or self-care (01) | LOC: HO.HOSX 08:27 | PROVIDERS: Visit Provider Orthopaedic Surgery | DX: Z13.89 Encounter for screening for other disorder (principal) ==

== ENCOUNTER 2021-10-22 09:58 | Outpatient (REF) | payer MEDICAID, SELFPAY ==
--- NOTE | ~2021-10-22 | XR_ITS ---
EXAMINATION: XR HAND, LEFT CLINICAL INFORMATION: Left hand pain COMPARISON: 09/30/2021 TECHNIQUE: PA, lateral, and oblique views of the left hand. FINDINGS: There are 2 K wires transfixing the fifth metacarpal fracture. Hardware is intact. Alignment is unchanged. The fracture line remains evident. No significant signs of healing. Joint space narrowing noted at the third metacarpophalangeal joint. Small osteophytes at the interphalangeal joints. Mild degenerative changes in the wrists. XR/XR hand LT min 3V IMPRESSION: Intact hardware transfixing the fifth metacarpal fracture with unchanged alignment.
== END 2021-10-22 09:59 | disposition home or self-care (01) ==
LOC: HO.HOSX 09:58
PROVIDERS: Visit Provider Physician Assistant
DX: S62.327D Displaced fracture of shaft of fifth metacarpal bone, left hand, subsequent encounter for fracture with routine healing (principal)
CPT/HCPCS: 29085; 73130; 99212

== ENCOUNTER 2021-10-29 05:46 | Outpatient (REF) | payer MEDICAID, SELFPAY ==
--- NOTE | ~2021-10-29 | XR_ITS ---
EXAMINATION: XR HAND, LEFT CLINICAL INFORMATION: Pain left hand. COMPARISON: Left hand 10/22/2021. TECHNIQUE: PA, lateral, and oblique views of the left hand. FINDINGS: There is a left 5th metacarpal oblique healing fracture with 2 metallic pins 90 degrees to each other stabilizing the fracture. There is mild interphalangeal and MCP joint loss of joint space with minimal periarticular spurring. XR/XR hand LT min 3V IMPRESSION: 2 pins 90 degrees to each other stabilizing an oblique distal 5th metacarpal fracture in alignment. The fracture line is still visualized. No change from the last exam 10/22/2021.
== END 2021-10-29 05:47 | disposition home or self-care (01) ==
LOC: HO.HOSX 05:46
PROVIDERS: Visit Provider Physician Assistant
DX: S62.327D Displaced fracture of shaft of fifth metacarpal bone, left hand, subsequent encounter for fracture with routine healing (principal)
CPT/HCPCS: 73130; 99212

== ENCOUNTER 2021-11-03 08:42 | Outpatient (REF) | payer MEDICAID, SELFPAY | END 2021-11-03 08:43 | disposition home or self-care (01) | LOC: HO.HOSX 08:42 | PROVIDERS: Visit Provider Orthopaedic Surgery | DX: Z13.89 Encounter for screening for other disorder (principal) ==

== ENCOUNTER 2021-11-11 08:26 | Outpatient (REF) | payer MEDICAID, SELFPAY | END 2021-11-11 08:27 | disposition home or self-care (01) | LOC: HO.HOSX 08:26 | PROVIDERS: Visit Provider Orthopaedic Surgery | DX: Z13.89 Encounter for screening for other disorder (principal) ==

== ENCOUNTER → 2021-12-01 09:07 | Outpatient (BNVA) | payer MEDICAID, SELFPAY | PROVIDERS: PCP Internal Medicine; Visit Provider Internal Medicine Pulmonary Disease | DX: Z01.810 Encounter for preprocedural cardiovascular examination (principal); Z01.811 Encounter for preprocedural respiratory examination; I11.0 Hypertensive heart disease with heart failure; I50.32 Chronic diastolic (congestive) heart failure; E66.01 Morbid (severe) obesity due to excess calories; R06.00 Dyspnea, unspecified; Z68.39 Body mass index [BMI] 39.0-39.9, adult | CPT/HCPCS: 93005; 99212 ==

== ENCOUNTER → 2022-03-26 08:22 | Outpatient (BNVA) | payer MEDICAID, SELFPAY | PROVIDERS: PCP Internal Medicine; Visit Provider Urology | DX: N32.0 Bladder-neck obstruction (principal) | CPT/HCPCS: 51798; 99212 ==

== ENCOUNTER → 2022-06-03 09:42 | Outpatient (BNVA) | payer MEDICAID, SELFPAY | PROVIDERS: PCP Internal Medicine; Referring Provider Internal Medicine; Visit Provider Internal Medicine | DX: I11.0 Hypertensive heart disease with heart failure (principal); I50.32 Chronic diastolic (congestive) heart failure; E66.01 Morbid (severe) obesity due to excess calories; I45.89 Other specified conduction disorders; Z68.38 Body mass index [BMI] 38.0-38.9, adult | CPT/HCPCS: 99212 ==

== ENCOUNTER 2022-07-14 23:53 | Emergency (ER) | payer MEDICAID, SELFPAY ==
--- NOTE | ~2022-07-14 | XR_ITS ---
EXAMINATION: XR CHEST CLINICAL INFORMATION: Shortness of breath COMPARISON: 03/10/2020 TECHNIQUE: Frontal view of the chest was obtained. FINDINGS: Lungs are hypoinflated. Otherwise, no Significant abnormality is noted involving the heart, lungs, mediastinum, bony thorax or soft tissues. XR/XR chest 1V IMPRESSION: No acute intrathoracic disease.
--- NOTE | 2022-07-15 00:03 | ED.SOB ---
HPI - SOB/Dyspnea General Chief Complaint: Dyspnea Stated Complaint: sob Time Seen by Provider: 07/15/22 00:03 Source: patient Mode of arrival: EMS History of Present Illness HPI Narrative: 51-year-old male with history of asthma, everyday cigarette smoker, every day consumption of alcohol, hypertension who presents with worsening shortness of breath over the past 2 days and increased work of breathing prompting him to call the ambulance who gave him 1 DuoNeb in route, did not get IV access, and patient has listed that he is allergic to prednisone so no steroids were given. Patient denies any fever, chills, nausea, vomiting. Related Data Home Medications Medication Instructions Recorded Confirmed clotrimazole 1 % topical cream 1 applic topical BID 05/17/20 06/03/22 diphenhydramine HCl 25 mg capsule 25 mg PO Q6H PRN Allergy Symptoms 05/17/20 06/03/22 (Banophen) fluticasone propionate 110 1 puff inhalation Q12H 05/17/20 06/03/22 mcg/actuation HFA aerosol inhaler (Flovent HFA) fluticasone propionate 50 1 spray intranasal DAILY 05/17/20 06/03/22 mcg/actuation nasal spray,suspension trazodone 100 mg tablet 100 mg PO BEDTIME PRN Sleep 05/17/20 06/03/22 docusate sodium 100 mg capsule 100 mg PO DAILY 09/17/20 06/03/22 (Colace) naloxone 4 mg/actuation nasal 4 mg intranasal Q2M PRN Opioid 10/01/20 06/03/22 spray (Narcan) Overdose albuterol sulfate 90 mcg/actuation 2 puff PO Q6-8H PRN Wheezing 06/02/21 06/03/22 aerosol inhaler (ProAir HFA) allopurinol 300 mg tablet 1 tab PO DAILY 06/02/21 06/03/22 bupropion HCl 150 mg 24 hr tablet, 1 tab PO QPM 06/02/21 06/03/22 extended release bupropion HCl 300 mg 24 hr tablet, 1 tab PO QAM 06/02/21 06/03/22 extended release celecoxib 200 mg capsule (Celebrex) 200 mg PO DAILY 06/02/21 06/03/22 ezetimibe 10 mg tablet 10 mg PO DAILY 06/02/21 06/03/22 losartan 50 mg tablet 50 mg PO DAILY 06/02/21 06/03/22 clonazepam 1 mg tablet 1 tab PO BID 06/03/21 06/03/22 venlafaxine 150 mg 1 cap PO BEDTIME 06/03/21 06/03/22 capsule,extended release 24 hr nicotine 10 mg inhalation 0 inh inhalation QID PRN 06/05/21 06/03/22 cartridge (Nicotrol) multivitamin-iron 9 mg-folic acid 1 tab PO DAILY 08/28/21 06/03/22 400 mcg-calcium and minerals tablet (Thera-M) omeprazole 20 mg capsule,delayed 20 mg PO BID 08/28/21 06/03/22 release Previous Rx's Medication Instructions Recorded lidocaine 5 % topical patch 1 patch topical DAILY #15 ea 05/27/20 (Lidoderm) cyclobenzaprine 10 mg tablet 10 mg PO TID PRN muscle pain or 10/10/20 spasm #20 tabs acetaminophen 325 mg tablet 650 mg PO Q4-6H PRN pain #30 tabs 09/13/21 (Tylenol) nabumetone 500 mg tablet 500 mg PO BID #20 tabs 09/13/21 oxycodone-acetaminophen 5 mg-325 1 tab PO Q6H PRN pain #15 tabs 09/21/21 mg tablet umeclidinium 62.5 mcg/actuation 1 inh PO DAILY 30 days #30 ea 10/20/21 blister powder for inhalation (Incruse Ellipta) furosemide 20 mg tablet (Lasix) 20 mg PO DAILY #90 tabs 02/11/22 terazosin 10 mg capsule 10 mg PO BEDTIME urinary retention 03/26/22 90 days #90 caps potassium chloride 20 mEq 20 meq PO DAILY #30 tabs 05/31/22 tablet,extended release amlodipine 10 mg tablet 10 mg PO DAILY #90 tabs 06/03/22 Allergies Allergy/AdvReac Type Severity Reaction Status Date / Time hydrocodone Allergy Intermediate Nausea and Verified 06/03/22 09:45 Vomiting prednisone Allergy Intermediate itching Verified 06/03/22 09:45 lisinopril AdvReac Intermediate Cough Verified 06/03/22 09:45 Iafmtap-QQY-WdP Reductase AdvReac Intermediate memory Verified 06/03/22 09:45 Inhibitor loss Review of Systems Review of Systems: Pertinent positives and negatives as stated in HPI 10 point review of systems is otherwise negative. [facility] Past Medical History Source: nursing notes reviewed Medical History Anxiety Arthritis Asthma Chronic pain COPD (chronic obstructive pulmonary disease) Degenerative joint disease of low back Depression Emphysema of lung Gout Hiatal hernia Hypercholesterolemia Hypertension Morbid obesity Neuropathy SUNDAR (obstructive sleep apnea) Polyarthralgia Sciatica Surgical History History of hand surgery History of open reduction and internal fixation (ORIF) procedure History of open reduction and internal fixation (ORIF) procedure History of total bilateral knee replacement Family History Family History Father No problems noted. Mother Arthritis of knee Sister Obesity Son No problems noted. Daughter Psoriasis Manic depression Social History Social History Household Members: None Are you a primary career resource technician to a significant other at home: No Do you presently have visiting nurse or other home services: Yes (Home Health Aid) Alcohol intake: current Alcohol intake frequency: 3 or more drinks per day Alcohol type: beer Patient Tobacco Use Status: Current everyday Tobacco user Tobacco use type: Cigarette Cigarettes Per Day: 5 Years Smoked: 40+ Smoked in Last 30 Days: Yes Use of substances other than those prescribed or required for medical reasons: Yes Substance Use Type: Marijuana Substance Use Frequency: Daily Advance Directives: No Current occupational status: unemployed Current occupation: Left Handed Physical Exam Vital Signs: Vital Signs: Last Vital Signs Temp 98.2 F 07/15/22 00:26 Pulse 82 07/15/22 00:30 Resp 18 07/15/22 00:30 BP 135/114 H 07/15/22 00:26 Pulse Ox 98 07/15/22 00:26 O2 Del Method 07/15/22 00:26 O2 Flow Rate 4.5 07/15/22 00:26 BMI result Body Mass Index 35.6 VITAL SIGNS: Reviewed. GENERAL: Well developed, well nourished, in no acute distress. HEAD: Normocephalic/atraumatic EYES: PERRLA, EOMI intact without pain, no nystagmus/pallor/icterus noted EARS: Ext canals without abnormality OROPHARYNX: no oral lesions noted, posterior pharynx clear, tacky mucosa NECK: Supple, no adenopathy LUNGS: Decreased breath sounds bibasilar, right greater than left, no obvious wheeze or rhonchi but increased work of breathing with tachypnea and noted. SpO2<98> on supplemental oxygen CARDIOVASCULAR: Regular rate and rhythm without noted murmurs, no JVD but bilateral 1+ ankle edema edema. ABDOMEN: Soft, non-tender, non-distended with bowel sounds. MUSCULOSKELETAL: No tenderness, deformities, or effusions noted on gross inspection. EXTREMITIES: No cyanosis, clubbing or edema. SKIN: Inspection of the skin reveals no rashes, ?Jaundice NEUROLOGIC: Alert and oriented x 4. Strength and sensation to light touch were grossly intact x 4. Course Course Course Narrative: 51-year-old male with history and clinical presentation after review of investigations consistent with likely alcoholic ketoacidosis with corresponding electrolyte abnormalities to include mild hyponatremia-118 in conjunction with hypomagnesemia which will be repleted with 2 g of magnesium, lactic acidosis is likely a combination of albuterol treatments as patient is afebrile and trace leukocytosis is not consistent with SIRS and likely reactive. 0115: Patient declining breathing treatment. 0201: I discussed with the patient at his request to be discharged, patient is adamant about not being admitted and states that he wants to go home to his own room. He states that it is nothing to do with the treatment or anything else, he ?just wants to go home?. Patient was advised that he will need to sign out against medical advice and he states that he does not care and he is more than happy to sign the paperwork. He has expressed his desire to be discharged against medical advice to his nurse as well. Medications Administered Generic Name Dose Route Start Last Admin Trade Name Freq PRN Reason Stop Dose Admin Magnesium Sulfate 2 gm in 50 mls @ 25 mls/hr 07/15/22 00:54 07/15/22 01:29 Magnesium Sulfate/H2o IV 07/15/22 02:53 25 mls/hr ONCE ONE Administration Discontinued Medications Generic Name Dose Route Start Last Admin Trade Name Freq PRN Reason Stop Dose Admin Albuterol Sulfate 7.5 mg/ 0 mg 07/15/22 00:21 07/15/22 00:27 Albuterol/Ipratropium 3 ml INHALE 07/15/22 00:22 1 each ONCE ONE Administration Albuterol Sulfate 7.5 mg/ 0 mg 07/15/22 00:57 07/15/22 02:00 Albuterol/Ipratropium 3 ml INHALE 07/15/22 00:58 Not Given ONCE ONE MDM - SOB/Dyspnea Lab Data Result diagrams: 07/15/22 00:22 07/15/22 00:21 Labs: Lab Results 07/15/22 07/15/22 07/15/22 Range/Units 00:18 00:18 00:19 WBC (4.8-10.8) X10*3/uL RBC (4.60-5.80) X10*6/uL Hgb (14.0-18.0) g/dl Hct (42.0-52.0) % MCV (80.0-98.0) fL MCH (27.0-33.0) pg MCHC (31.0-36.0) g/dl RDW (11.0-16.0) % Plt Count (160-400) X10*3/uL MPV (9.4-12.4) fL Immature Gran % (Auto) (0.0-0.4) % Neut % (Auto) (45-73) % Lymph % (Auto) (20-40) % Norman % (Auto) (2-11) % Eos % (Auto) (0-4) % Baso % (Auto) (0-2) % Lymph # (Auto) (1.2-4.9) X10*3/uL Norman # (Auto) (0.1-1.2) X10*3/uL Eos # (Auto) (0.0-0.4) X10*3/uL Baso # (Auto) (0.0-0.2) X10*3/uL Abs Immat Gran (auto) (0.00-0.03) X10*3/uL Absolute Neuts (auto) (2.0-8.3) x10*3/uL Absolute Nucleated RBC (0.0-0.012) X10*3/uL Nucleated RBC % (auto) (0.0-0.2) /100WBC PT (10.0-13.1) SEC INR (0.9-1.1) VBG pH (7.32-7.43) VBG pCO2 mmHg VBG pO2 mmHg VBG HCO3 (22-26) mmol/L VBG O2 Saturation % VBG Base Excess mmol/L Sodium (135-145) mmol/L Potassium (3.3-5.1) mmol/L Chloride (96-108) mmol/L Carbon Dioxide (22-29) mmol/L Anion Gap (12-20) BUN (9-16) mg/dL Creatinine (0.5-1.4) mg/dL Estim Creat Clear Calc Estimated GFR Random Glucose (60-115) mg/dL Lactic Acid 4.2 H* (0.5-2.0) mmol/L Calcium (8.4-10.2) mg/dL Magnesium (1.6-2.6) mg/dL Total Bilirubin (0.0-1.0) mg/dL AST (5-37) U/L ALT (0-40) U/L Alkaline Phosphatase (39-117) U/L Troponin I High Sens 23.4 (<3.5-35.0) ng/L B-Natriuretic Peptide (<100) pg/mL Total Protein (6.5-8.0) g/dL Albumin (3.5-5.0) g/dL Lipase (8-78) U/L Ethyl Alcohol 69 mg/dL Influenza Type A (PCR) (Negative) Influenza Type B (PCR) (Negative) RSV RNA Qual (PCR) (Negative) SARS-CoV-2 RNA (RT-PCR) (Negative) 07/15/22 07/15/22 07/15/22 Range/Units 00:21 00:21 00:21 WBC (4.8-10.8) X10*3/uL RBC (4.60-5.80) X10*6/uL Hgb (14.0-18.0) g/dl Hct (42.0-52.0) % MCV (80.0-98.0) fL MCH (27.0-33.0) pg MCHC (31.0-36.0) g/dl RDW (11.0-16.0) % Plt Count (160-400) X10*3/uL MPV (9.4-12.4) fL Immature Gran % (Auto) (0.0-0.4) % Neut % (Auto) (45-73) % Lymph % (Auto) (20-40) % Norman % (Auto) (2-11) % Eos % (Auto) (0-4) % Baso % (Auto) (0-2) % Lymph # (Auto) (1.2-4.9) X10*3/uL Norman # (Auto) (0.1-1.2) X10*3/uL Eos # (Auto) (0.0-0.4) X10*3/uL Baso # (Auto) (0.0-0.2) X10*3/uL Abs Immat Gran (auto) (0.00-0.03) X10*3/uL Absolute Neuts (auto) (2.0-8.3) x10*3/uL Absolute Nucleated RBC (0.0-0.012) X10*3/uL Nucleated RBC % (auto) (0.0-0.2) /100WBC PT 13.1 (10.0-13.1) SEC INR 1.1 (0.9-1.1) VBG pH (7.32-7.43) VBG pCO2 mmHg VBG pO2 mmHg VBG HCO3 (22-26) mmol/L VBG O2 Saturation % VBG Base Excess mmol/L Sodium 118 L* (135-145) mmol/L Potassium 3.7 (3.3-5.1) mmol/L Chloride 85 L (96-108) mmol/L Carbon Dioxide 17 L (22-29) mmol/L Anion Gap 20 (12-20) BUN 31 H (9-16) mg/dL Creatinine 3.17 H (0.5-1.4) mg/dL Estim Creat Clear Calc 38.0 Estimated GFR 21 Random Glucose 83 (60-115) mg/dL Lactic Acid (0.5-2.0) mmol/L Calcium 8.1 L D (8.4-10.2) mg/dL Magnesium 0.9 L* (1.6-2.6) mg/dL Total Bilirubin 1.9 H (0.0-1.0) mg/dL AST 170 H (5-37) U/L ALT 113 H (0-40) U/L Alkaline Phosphatase 187 H (39-117) U/L Troponin I High Sens (<3.5-35.0) ng/L B-Natriuretic Peptide 31 (<100) pg/mL Total Protein 6.2 L (6.5-8.0) g/dL Albumin 3.5 (3.5-5.0) g/dL Lipase 68 (8-78) U/L Ethyl Alcohol mg/dL Influenza Type A (PCR) (Negative) Influenza Type B (PCR) (Negative) RSV RNA Qual (PCR) (Negative) SARS-CoV-2 RNA (RT-PCR) (Negative) 07/15/22 07/15/22 07/15/22 Range/Units 00:22 00:24 00:31 WBC 11.3 H (4.8-10.8) X10*3/uL RBC 3.68 L (4.60-5.80) X10*6/uL Hgb 11.4 L (14.0-18.0) g/dl Hct 31.4 L (42.0-52.0) % MCV 85.3 (80.0-98.0) fL MCH 31.0 (27.0-33.0) pg MCHC 36.3 H (31.0-36.0) g/dl RDW 12.2 (11.0-16.0) % Plt Count 295 D (160-400) X10*3/uL MPV 9.2 L (9.4-12.4) fL Immature Gran % (Auto) 2.1 H (0.0-0.4) % Neut % (Auto) 62.3 (45-73) % Lymph % (Auto) 26.9 (20-40) % Norman % (Auto) 7.9 (2-11) % Eos % (Auto) 0.4 (0-4) % Baso % (Auto) 0.4 (0-2) % Lymph # (Auto) 3.0 (1.2-4.9) X10*3/uL Norman # (Auto) 0.9 (0.1-1.2) X10*3/uL Eos # (Auto) 0.0 (0.0-0.4) X10*3/uL Baso # (Auto) 0.0 (0.0-0.2) X10*3/uL Abs Immat Gran (auto) 0.24 H (0.00-0.03) X10*3/uL Absolute Neuts (auto) 7.0 (2.0-8.3) x10*3/uL Absolute Nucleated RBC 0.000 (0.0-0.012) X10*3/uL Nucleated RBC % (auto) 0.0 (0.0-0.2) /100WBC PT (10.0-13.1) SEC INR (0.9-1.1) VBG pH 7.37 (7.32-7.43) VBG pCO2 26 mmHg VBG pO2 36 mmHg VBG HCO3 15 L (22-26) mmol/L VBG O2 Saturation 52.0 % VBG Base Excess -7.8 mmol/L Sodium (135-145) mmol/L Potassium (3.3-5.1) mmol/L Chloride (96-108) mmol/L Carbon Dioxide (22-29) mmol/L Anion Gap (12-20) BUN (9-16) mg/dL Creatinine (0.5-1.4) mg/dL Estim Creat Clear Calc Estimated GFR Random Glucose (60-115) mg/dL Lactic Acid (0.5-2.0) mmol/L Calcium (8.4-10.2) mg/dL Magnesium (1.6-2.6) mg/dL Total Bilirubin (0.0-1.0) mg/dL AST (5-37) U/L ALT (0-40) U/L Alkaline Phosphatase (39-117) U/L Troponin I High Sens (<3.5-35.0) ng/L B-Natriuretic Peptide (<100) pg/mL Total Protein (6.5-8.0) g/dL Albumin (3.5-5.0) g/dL Lipase (8-78) U/L Ethyl Alcohol mg/dL Influenza Type A (PCR) NEGATIVE (Negative) Influenza Type B (PCR) NEGATIVE (Negative) RSV RNA Qual (PCR) NEGATIVE (Negative) SARS-CoV-2 RNA (RT-PCR) NEGATIVE (Negative) ECG Data Attestation: I personally reviewed and interpreted this ECG as follows: Prior ECG tracings: available for review Interpretation: Sinus rhythm with first-degree AV block (AV block is new), HR-82, no STEMI, RI -220/QRS/QTC is within normal limits Procedures EJ/Peripheral Line Arm R: Time Out Performed: No Skin Cleansed in Sterile Fashion: Yes Size (gauge): 18 IV Secured and Dressing Applied: Yes Patient Tolerated Procedure: well Additional Comments: Ultrasound-guided peripheral line. Critical Care Time Critical Care Time Critical Care Time: Yes Total Critical Care Time: 45 Attestation: I personally attest to this time spent taking care of the patient. Discharge Plan Discharge Clinical Impression: Breath shortness, Alcoholic ketoacidosis, Hyponatremia, Hypomagnesemia Patient Disposition: Left Against Medical Advice Instructions: Hypomagnesemia (ED), Hyponatremia (ED), Asthma (ED), Alcohol Use Disorder (ED) Additional Instructions: 1. Resume all home medications as prescribed. 2. Please call the office of your uniform room attendant and primary care provider in the morning. Do not hesitate to return to the emergency room for any acute worsening of your symptoms. Prescriptions: No Action Incruse Ellipta 62.5 mcg/actuation blister with device 1 inh PO DAILY 30 Days Qty: 30 6RF furosemide [Lasix] 20 mg tablet 20 mg PO DAILY Qty: 90 1RF terazosin 10 mg capsule 10 mg PO BEDTIME 90 Days Qty: 90 3RF potassium chloride 20 mEq tablet extended release 20 meq PO DAILY Qty: 30 5RF cyclobenzaprine 10 mg tablet 10 mg PO TID PRN (Reason: muscle pain or spasm) Qty: 20 0RF lidocaine [Lidoderm] 5 % adhesive patch,medicated 1 patch topical DAILY Qty: 15 0RF Rx Instructions: leave on most painful area for up to 12 hrs allopurinol 300 mg tablet 1 tab PO DAILY albuterol sulfate [ProAir HFA] 90 mcg/actuation HFA aerosol inhaler 2 puff PO Q6-8H PRN (Reason: Wheezing) losartan 50 mg Tablet 50 mg PO DAILY celecoxib [Celebrex] 200 mg Capsule 200 mg PO DAILY ezetimibe 10 mg Tablet 10 mg PO DAILY bupropion HCl 300 mg tablet extended release 24 hr 1 tab PO QAM bupropion HCl 150 mg tablet extended release 24 hr 1 tab PO QPM clonazepam 1 mg tablet 1 tab PO BID venlafaxine 150 mg capsule,extended release 24hr 1 cap PO BEDTIME nabumetone 500 mg tablet 500 mg PO BID Qty: 20 0RF acetaminophen [Tylenol] 325 mg tablet 650 mg PO Q4-6H PRN (Reason: pain) Qty: 30 0RF oxycodone-acetaminophen 5-325 mg tablet 1 tab PO Q6H PRN (Reason: pain) Qty: 15 0RF docusate sodium [Colace] 100 mg capsule 100 mg PO DAILY Nicotrol 10 mg cartridge 0 inh inhalation QID PRN fluticasone propionate 50 mcg/actuation spray,suspension 1 spray intranasal DAILY Rx Instructions: administer into each nostril Flovent HFA 110 mcg/actuation HFA aerosol inhaler 1 puff inhalation Q12H diphenhydramine HCl [Banophen] 25 mg capsule 25 mg PO Q6H PRN (Reason: Allergy Symptoms) clotrimazole 1 % cream 1 applic topical BID trazodone 100 mg tablet 100 mg PO BEDTIME PRN (Reason: Sleep) Narcan 4 mg/actuation spray,non-aerosol 4 mg intranasal Q2M PRN (Reason: Opioid Overdose) Rx Instructions: spray 1 dose into ONE nostril; alternate nostrils w each dose until help arrives Thera-M 9 mg iron-400 mcg tablet 1 tab PO DAILY omeprazole 20 mg capsule,delayed release(DR/EC) 20 mg PO BID amlodipine 10 mg tablet 10 mg PO DAILY Qty: 90 3RF Referrals: Kaykay Rivas MD [Primary Care Provider] - Pavel Loco MD [Physician] - Stand Alone Forms: Against Medical Advice
[2022-07-15 00:04] VITALS: BP 140/70; BP 146/122; PULSE 84; RESP 26; TEMP 36.8; O2SAT 97; O2SAT 99; BMI 35.6
--- NOTE | 2022-07-15 00:04 | ECG_ITS ---
Test Reason : SOB Blood Pressure : / mmHG Vent. Rate : 082 BPM Atrial Rate : 082 BPM P-R Int : 220 ms QRS Dur : 090 ms QT Int : 378 ms P-R-T Axes : -04 024 039 degrees QTc Int : 441 ms Sinus rhythm with 1st degree A-V block Otherwise normal ECG When compared with ECG of 12-OCT-2020 01:27, [place] interval has increased QT has shortened Referred By: Shira Sherman Electronically Signed By:Jose Schaffer
--- NOTE | 2022-07-15 00:15 | PC.NURSE ---
Pt. on monitoring analyst at this time
--- NOTE | 2022-07-15 00:16 | PC.NURSE ---
Leticia Sherman MD at bedside for US-guided IV
--- NOTE | 2022-07-15 00:22 | PC.NURSE ---
First set of blood cultures and labs drawn and sent as ordered
[2022-07-15 00:26] VITALS: BP 135/114; PULSE 82; RESP 16; TEMP 36.8; O2SAT 98
[2022-07-15] MEDS: Albuterol Sulfate 7.5 MG, Albuterol/Iprat 2.5/0.5MG 3 ML 3 ML INHALE (00:27)
[2022-07-15 00:30] VITALS: PULSE 82; RESP 18; O2SAT 98
[2022-07-15 00:36] LABS: MANUAL DIFF FLAG NO
[2022-07-15 00:39] LABS: VBG Base Excess -7.8 mmol/L; VBG HCO3 15 mmol/L (22-26); VBG pCO2 26 mmHg; VBG pH 7.37 (7.32-7.43); VBG pO2 36 mmHg
[2022-07-15 00:40] LABS: Basophils Percent Auto 0.4 % (0-2); Eosinophils Percent Auto 0.4 % (0-4); Hematocrit 31.4 % (42.0-52.0); Hemoglobin 11.4 g/dl (14.0-18.0); Imm Gran Abs Auto 0.24 X10*3/uL (0.00-0.03); Imm Gran Pct Auto 2.1 % (0.0-0.4); Lymphocytes Percent Auto 26.9 % (20-40); Mean Corpuscular HGB Conc 36.3 g/dl (31.0-36.0); Mean Corpuscular Volume 85.3 fL (80.0-98.0); Mean Platelet Volume 9.2 fL (9.4-12.4); Monocytes Absolute Auto 0.9 X10*3/uL (0.1-1.2); Monocytes Percent Auto 7.9 % (2-11); Neutrophils Percent Auto 62.3 % (45-73); Platelet Count 295 X10*3/uL (160-400); Red Blood Count 3.68 X10*6/uL (4.60-5.80); Red Cell Distribution Width 12.2 % (11.0-16.0); White Blood Count 11.3 X10*3/uL (4.8-10.8)
[2022-07-15 00:44] LABS: INTERNATIONAL NORM RATIO 1.1 (0.9-1.1); Prothrombin Time 13.1 SEC (10.0-13.1)
[2022-07-15 00:50] LABS: Ethanol 69 mg/dL
[2022-07-15 00:52] LABS: Lactic Acid 4.2 mmol/L (0.5-2.0)
[2022-07-15 00:54] LABS: Alanine Aminotransferase 113 U/L (0-40); Albumin Level 3.5 g/dL (3.5-5.0); Alkaline Phosphatase 187 U/L (39-117); Anion Gap 20 (12-20); Aspartate Amino Transferase 170 U/L (5-37); Bilirubin Total 1.9 mg/dL (0.0-1.0); Blood Urea Nitrogen 31 mg/dL (9-16); Calcium 8.1 mg/dL (8.4-10.2); Carbon Dioxide 17 mmol/L (22-29); Chloride 85 mmol/L (96-108); Estimated Glomerular Filt Rate 21; Glucose Random 83 mg/dL (60-115); Magnesium 0.9 mg/dL (1.6-2.6); Potassium 3.7 mmol/L (3.3-5.1); Sodium 118 mmol/L (135-145); Total Protein 6.2 g/dL (6.5-8.0)
[2022-07-15 00:59] LABS: Troponin-I High Sensitivity 23.4 ng/L (<3.5-35.0)
[2022-07-15 01:08] LABS: Influenza A PCR NEGATIVE (Negative); Influenza B PCR NEGATIVE (Negative); Resp Syncy Virus RNA Qual PCR NEGATIVE (Negative); SARS COV2 PCR INHOUSE NEGATIVE (Negative)
[2022-07-15 01:22] LABS: Lipase 68 U/L (8-78)
[2022-07-15 01:23] LABS: B Type Natriuretic Peptide 31 pg/mL (<100)
[2022-07-15] MEDS: Magnesium Sulfate/H2O 2 GM/50 ML PIGGYBACK IV (01:29)
--- NOTE | 2022-07-15 01:31 | PC.NURSE ---
Pt. refusing respiratory treatments and stating repeatedly to staff that he wants to leave AMA. Pt. educated by this RN and MD of importance of not leaving AMA while he is visibly working to breathe.
[2022-07-15 01:35] LABS: Venous Blood Gas Refer to POC result
--- NOTE | 2022-07-15 01:42 | PC.NURSE ---
Pt. reminded about need for urine sample and refused again at this time. Pt. is adamant about leaving AMA - will notify provider.
[2022-07-15 02:32] LABS: Reflex Lactate? Lactic Acid Added
[2022-07-15 05:28] LABS: D Dimer High Sensitivity < 150 NG/ML
== END 2022-07-15 02:26 | disposition left against medical advice (07) ==
PROVIDERS: Emergency Provider Student in an Organized Health Care Education/Training Program; PCP Internal Medicine
DX: R06.02 Shortness of breath (principal); E87.29 Other acidosis; E83.42 Hypomagnesemia; I10 Essential (primary) hypertension; E78.5 Hyperlipidemia, unspecified; F17.210 Nicotine dependence, cigarettes, uncomplicated; F12.90 Cannabis use, unspecified, uncomplicated; Z20.822 Contact with and (suspected) exposure to COVID-19
CPT/HCPCS: 0241U; 36415; 71045; 71250; 74176; 80053; 82077; 82803; 83605; 83690; 83735; 83880; 83935; 84300; 84484; 85025; 85379; 85610; 87040; 93005; 94640; 96374; 99285; J0692; J3475

== ENCOUNTER 2022-07-15 03:56 | Emergency (ER) | payer MEDICAID, SELFPAY ==
--- NOTE | ~2022-07-15 | CT_ITS ---
EXAM: NONCONTRAST CT OF THE CHEST; NONCONTRAST CT OF THE ABDOMEN AND PELVIS INDICATION: Shortness of breath, abdominal pain COMPARISON: 10/10/2020 TECHNIQUE: No IV contrast was utilized. Multidetector helical imaging was performed through the chest, abdomen, and pelvis. Coronal and sagittal reformatted images were created at the technologist workstation. DOSE LOWERING TECHNIQUES: This CT examination was performed using dose optimization techniques as appropriate, variously including the following: - Automated exposure control - Adjustment of mA and/or kV according to patient size (this includes techniques or standardized protocols for targeted exams were dose is matched to indication/reason for exam; i.e. extremities or head) - Use of iterative reconstruction technique DLP: 1648 mGy-cm FINDINGS: Chest: No regions of consolidation bilaterally. Minimal paraseptal emphysema is noted. Bronchial wall thickening and impacted airways noted in the right lower lobe. No pneumothorax or pleural effusion. Small right thyroid lobe calcification noted. There are subcentimeter mediastinal lymph nodes within the range of normal variation. Cardiac size is within normal limits; no pericardial effusion. Coronary artery calcifications are present. No axillary lymphadenopathy is present. Bilateral gynecomastia noted. Degenerative changes are noted in the spine. Abdomen/Pelvis: The liver demonstrates hypoattenuation consistent with steatosis. No intrahepatic biliary ductal dilatation. The gallbladder is unremarkable. The unenhanced spleen, pancreas, and adrenal glands are within normal limits. The unenhanced kidneys are unremarkable without hydronephrosis. No renal or ureteral calculi are present. The urinary bladder is mildly distended with mural prominence. The prostate and seminal vesicles are unremarkable. Mild colonic diverticulosis without diverticulitis. No evidence of bowel obstruction. The appendix is unremarkable. No free fluid or free air is identified. Scattered atherosclerotic calcifications. No retroperitoneal or pelvic lymphadenopathy is seen. Degenerative changes are noted in the spine and hips. CT/CT abdomen pelvis wo IV con IMPRESSION: 1. Bronchial wall thickening and impacted airways in the right lower lobe, suggesting mild bronchitis. 2. Coronary artery calcifications. Correlation with cardiac risk factors is recommended. 3. Mural prominence of the urinary bladder, which could be due to underdistention or cystitis. Correlation with urinalysis is recommended. 4. Hepatic steatosis.
[2022-07-15 04:04] VITALS: BP 151/85; PULSE 85; RESP 24; TEMP 36; O2SAT 96; BMI 36.6
--- NOTE | 2022-07-15 04:16 | ED_ITS ---
HPI - General Adult General Chief complaint: General Medical Stated complaint: respiratory issues Time Seen by Provider: 07/15/22 04:16 Source: patient Mode of arrival: ambulatory History of Present Illness HPI narrative: 51-year-old male re-presented after signing out against medical advice stating that ?I just can not breathe?. Related Data Home Medications Medication Instructions Recorded Confirmed clotrimazole 1 % topical cream 1 applic topical BID 05/17/20 06/03/22 diphenhydramine HCl 25 mg capsule 25 mg PO Q6H PRN Allergy Symptoms 05/17/20 06/03/22 (Banophen) fluticasone propionate 110 1 puff inhalation Q12H 05/17/20 06/03/22 mcg/actuation HFA aerosol inhaler (Flovent HFA) fluticasone propionate 50 1 spray intranasal DAILY 05/17/20 06/03/22 mcg/actuation nasal spray,suspension trazodone 100 mg tablet 100 mg PO BEDTIME PRN Sleep 05/17/20 06/03/22 docusate sodium 100 mg capsule 100 mg PO DAILY 09/17/20 06/03/22 (Colace) naloxone 4 mg/actuation nasal 4 mg intranasal Q2M PRN Opioid 10/01/20 06/03/22 spray (Narcan) Overdose albuterol sulfate 90 mcg/actuation 2 puff PO Q6-8H PRN Wheezing 06/02/21 06/03/22 aerosol inhaler (ProAir HFA) allopurinol 300 mg tablet 1 tab PO DAILY 06/02/21 06/03/22 bupropion HCl 150 mg 24 hr tablet, 1 tab PO QPM 06/02/21 06/03/22 extended release bupropion HCl 300 mg 24 hr tablet, 1 tab PO QAM 06/02/21 06/03/22 extended release celecoxib 200 mg capsule (Celebrex) 200 mg PO DAILY 06/02/21 06/03/22 ezetimibe 10 mg tablet 10 mg PO DAILY 06/02/21 06/03/22 losartan 50 mg tablet 50 mg PO DAILY 06/02/21 06/03/22 clonazepam 1 mg tablet 1 tab PO BID 06/03/21 06/03/22 venlafaxine 150 mg 1 cap PO BEDTIME 06/03/21 06/03/22 capsule,extended release 24 hr nicotine 10 mg inhalation 0 inh inhalation QID PRN 06/05/21 06/03/22 cartridge (Nicotrol) multivitamin-iron 9 mg-folic acid 1 tab PO DAILY 08/28/21 06/03/22 400 mcg-calcium and minerals tablet (Thera-M) omeprazole 20 mg capsule,delayed 20 mg PO BID 08/28/21 06/03/22 release Previous Rx's Medication Instructions Recorded lidocaine 5 % topical patch 1 patch topical DAILY #15 ea 05/27/20 (Lidoderm) cyclobenzaprine 10 mg tablet 10 mg PO TID PRN muscle pain or 10/10/20 spasm #20 tabs acetaminophen 325 mg tablet 650 mg PO Q4-6H PRN pain #30 tabs 09/13/21 (Tylenol) nabumetone 500 mg tablet 500 mg PO BID #20 tabs 09/13/21 oxycodone-acetaminophen 5 mg-325 1 tab PO Q6H PRN pain #15 tabs 09/21/21 mg tablet umeclidinium 62.5 mcg/actuation 1 inh PO DAILY 30 days #30 ea 10/20/21 blister powder for inhalation (Incruse Ellipta) furosemide 20 mg tablet (Lasix) 20 mg PO DAILY #90 tabs 02/11/22 terazosin 10 mg capsule 10 mg PO BEDTIME urinary retention 03/26/22 90 days #90 caps potassium chloride 20 mEq 20 meq PO DAILY #30 tabs 05/31/22 tablet,extended release amlodipine 10 mg tablet 10 mg PO DAILY #90 tabs 06/03/22 Allergies Allergy/AdvReac Type Severity Reaction Status Date / Time hydrocodone Allergy Intermediate Nausea and Verified 06/03/22 09:45 Vomiting prednisone Allergy Intermediate itching Verified 06/03/22 09:45 lisinopril AdvReac Intermediate Cough Verified 06/03/22 09:45 Mkattpa-LOF-YcF Reductase AdvReac Intermediate memory Verified 06/03/22 09:45 Inhibitor loss Review of Systems Review of Systems: Pertinent positives and negatives as stated in HPI. [facility] Past Medical History Source: nursing notes reviewed Medical History Anxiety Arthritis Asthma Chronic pain COPD (chronic obstructive pulmonary disease) Degenerative joint disease of low back Depression Emphysema of lung Gout Hiatal hernia Hypercholesterolemia Hypertension Morbid obesity Neuropathy SUNDAR (obstructive sleep apnea) Polyarthralgia Sciatica Surgical History History of hand surgery History of open reduction and internal fixation (ORIF) procedure History of open reduction and internal fixation (ORIF) procedure History of total bilateral knee replacement Family History Family History Father No problems noted. Mother Arthritis of knee Sister Obesity Son No problems noted. Daughter Psoriasis Manic depression Social History Social History Household Members: None Are you a primary healthcare administration intern to a significant other at home: No Do you presently have visiting nurse or other home services: Yes (Home Health Aid) Alcohol intake: current Alcohol intake frequency: 3 or more drinks per day Alcohol type: beer Patient Tobacco Use Status: Current everyday Tobacco user Tobacco use type: Cigarette Cigarettes Per Day: 5 Years Smoked: 40+ Smoked in Last 30 Days: Yes Use of substances other than those prescribed or required for medical reasons: Yes Substance Use Type: Marijuana Substance Use Frequency: Daily Advance Directives: No Current occupational status: unemployed Current occupation: Left Handed Physical Exam ED Vital Signs: Vital Signs - 24 hr 07/15/22 04:04 07/15/22 05:09 07/15/22 07:04 Temperature 96.8 F 98.2 F Pulse Rate 85 80 86 Respiratory Rate 24 H 18 18 Blood Pressure 151/85 H 117/67 Pulse Oximetry 96 99 Oxygen Delivery Method Room Air Nasal Cannula Oxygen Flow Rate 2 BMI result Body Mass Index 36.6 VITAL SIGNS: Reviewed. GENERAL: Well developed, well nourished, in no acute distress. HEAD: Normocephalic/atraumatic EYES: PERRLA, EOMI EARS: Ext canals without abnormality OROPHARYNX: no oral lesions noted, posterior pharynx clear LUNGS: Normal breath sounds. No adventitious sounds or accessory muscle use. SpO2<96> CARDIOVASCULAR: Regular rate and rhythm without noted murmurs, no JVD bilateral 1+ ankle edema ABDOMEN: Soft, non-tender, non-distended with bowel sounds. MUSCULOSKELETAL: No tenderness, deformities, or effusions noted on gross inspection. EXTREMITIES: No cyanosis, clubbing or edema. SKIN: Inspection of the skin reveals no rashes NEUROLOGIC: Alert and oriented x 3. Strength and sensation to light touch were grossly intact x 4. Course Course Course Narrative: 51-year-old male is now returning to the emergency room after signing out against medical advice and coming to the conclusion that he does require further medical care. Patient will now received the 1 L of IV fluids that he had orde red previously, he did receive 2g of Mg sulfate. Patient has received the 500 cc of normal saline, blood pressure has improved, D-dimer is less than [address] scans are negative for acute findings. Repeat a CBC and CMP are pending. 0625: I suspect infection, abx given. Sign out to Dr Art. Reevaluation(s) Reevaluation #1: I discussed this case with Nephrology who recommends 500 cc bolus as we discussed the fact that the patient was exhibiting low blood pressures likely secondary to hypovolemia she then recommended Q 2-3/HR sodium levels as well as obtaining a urine sodium and osmolality. Time: 06:33 Medications Administered Discontinued Medications Generic Name Dose Route Start Last Admin Trade Name Freq PRN Reason Stop Dose Admin Albuterol Sulfate 7.5 mg/ 0 mg 07/15/22 05:01 07/15/22 05:06 Albuterol/Ipratropium 3 ml INHALE 07/15/22 05:02 1 each ONCE ONE Administration Sodium Chloride 1,000 mls @ 999 mls/hr 07/15/22 04:45 07/15/22 05:13 Ns IV 07/15/22 05:45 999 mls/hr .Q1H1M SHAWNA Administration Medical Decision Making Lab Data Result diagrams: 07/15/22 06:53 07/15/22 06:53 Labs: Lab Results 07/15/22 07/15/22 07/15/22 Range/Units 04:47 04:47 06:53 WBC 11.5 H (4.8-10.8) X10*3/uL RBC 3.82 L (4.60-5.80) X10*6/uL Hgb 12.0 L (14.0-18.0) g/dl Hct 32.5 L (42.0-52.0) % MCV 85.1 (80.0-98.0) fL MCH 31.4 (27.0-33.0) pg MCHC 36.9 H (31.0-36.0) g/dl RDW 12.4 (11.0-16.0) % Plt Count 294 (160-400) X10*3/uL MPV 9.0 L (9.4-12.4) fL Immature Gran % (Auto) 1.3 H (0.0-0.4) % Neut % (Auto) 68.0 (45-73) % Lymph % (Auto) 22.3 (20-40) % [place] % (Auto) 7.9 (2-11) % Eos % (Auto) 0.2 (0-4) % Baso % (Auto) 0.3 (0-2) % Lymph # (Auto) 2.6 (1.2-4.9) X10*3/uL [place] # (Auto) 0.9 (0.1-1.2) X10*3/uL Eos # (Auto) 0.0 (0.0-0.4) X10*3/uL Baso # (Auto) 0.0 (0.0-0.2) X10*3/uL Abs Immat Gran (auto) 0.15 H (0.00-0.03) X10*3/uL Absolute Neuts (auto) 7.8 (2.0-8.3) x10*3/uL Absolute Nucleated RBC 0.000 (0.0-0.012) X10*3/uL Nucleated RBC % (auto) 0.0 (0.0-0.2) /100WBC Lactic Acid 3.7 H* (0.5-2.0) mmol/L Troponin I High Sens 15.8 (<3.5-35.0) ng/L Discharge Plan Discharge Clinical Impression: Dyspnea, Alcoholic ketoacidosis, Hyponatremia, Hypomagnesemia, Asthma, ADRY (acute kidney injury) Patient Disposition: Still a Patient Prescriptions: No Action Incruse Ellipta 62.5 mcg/actuation blister with device 1 inh PO DAILY 30 Days Qty: 30 6RF furosemide [Lasix] 20 mg tablet 20 mg PO DAILY Qty: 90 1RF terazosin 10 mg capsule 10 mg PO BEDTIME 90 Days Qty: 90 3RF potassium chloride 20 mEq tablet extended release 20 meq PO DAILY Qty: 30 5RF cyclobenzaprine 10 mg tablet 10 mg PO TID PRN (Reason: muscle pain or spasm) Qty: 20 0RF lidocaine [Lidoderm] 5 % adhesive patch,medicated 1 patch topical DAILY Qty: 15 0RF Rx Instructions: leave on most painful area for up to 12 hrs allopurinol 300 mg tablet 1 tab PO DAILY albuterol sulfate [ProAir HFA] 90 mcg/actuation HFA aerosol inhaler 2 puff PO Q6-8H PRN (Reason: Wheezing) losartan 50 mg Tablet 50 mg PO DAILY celecoxib [Celebrex] 200 mg Capsule 200 mg PO DAILY ezetimibe 10 mg Tablet 10 mg PO DAILY bupropion HCl 300 mg tablet extended release 24 hr 1 tab PO QAM bupropion HCl 150 mg tablet extended release 24 hr 1 tab PO QPM clonazepam 1 mg tablet 1 tab PO BID venlafaxine 150 mg capsule,extended release 24hr 1 cap PO BEDTIME nabumetone 500 mg tablet 500 mg PO BID Qty: 20 0RF acetaminophen [Tylenol] 325 mg tablet 650 mg PO Q4-6H PRN (Reason: pain) Qty: 30 0RF oxycodone-acetaminophen 5-325 mg tablet 1 tab PO Q6H PRN (Reason: pain) Qty: 15 0RF docusate sodium [Colace] 100 mg capsule 100 mg PO DAILY Nicotrol 10 mg cartridge 0 inh inhalation QID PRN fluticasone propionate 50 mcg/actuation spray,suspension 1 spray intranasal DAILY Rx Instructions: administer into each nostril Flovent HFA 110 mcg/actuation HFA aerosol inhaler 1 puff inhalation Q12H diphenhydramine HCl [Banophen] 25 mg capsule 25 mg PO Q6H PRN (Reason: Allergy Symptoms) clotrimazole 1 % cream 1 applic topical BID trazodone 100 mg tablet 100 mg PO BEDTIME PRN (Reason: Sleep) Narcan 4 mg/actuation spray,non-aerosol 4 mg intranasal Q2M PRN (Reason: Opioid Overdose) Rx Instructions: spray 1 dose into ONE nostril; alternate nostrils w each dose until help arrives Thera-M 9 mg iron-400 mcg tablet 1 tab PO DAILY omeprazole 20 mg capsule,delayed release(DR/EC) 20 mg PO BID amlodipine 10 mg tablet 10 mg PO DAILY Qty: 90 3RF
[2022-07-15] MEDS: Albuterol Sulfate 7.5 MG, Albuterol/Iprat 2.5/0.5MG 3 ML 3 ML INHALE (05:06)
[2022-07-15 05:09] VITALS: PULSE 80; RESP 18; O2SAT 96
[2022-07-15 05:12] LABS: Lactic Acid 3.7 mmol/L (0.5-2.0)
[2022-07-15] MEDS: 0.9 % Sodium Chloride 1,000 ML 999 ML IV (05:13)
[2022-07-15 05:17] LABS: Troponin-I High Sensitivity 15.8 ng/L (<3.5-35.0)
--- NOTE | 2022-07-15 05:25 | PC.NURSE ---
Patient is alert and oriented x5. He reports he continues to experience bilateral flank pain 4/10 at present. Patient denies discomfort with urination T 98.3, P 82, RR 17, BP 85/48, O2 Sat 99% on O2 at 2 LPM NC. NS bolus is running. Dr. Li informed of soft BP readings. ordered CT of abdomen and chest w/o contrast. Continue to monitor BP.
[2022-07-15 06:51] LABS: Reflex Lactate? Lactic Acid Added
[2022-07-15 07:04] VITALS: BP 117/67; PULSE 86; RESP 18; TEMP 36.8; O2SAT 99
[2022-07-15 07:04] LABS: MANUAL DIFF FLAG NO
[2022-07-15 07:07] LABS: Basophils Percent Auto 0.3 % (0-2); Eosinophils Percent Auto 0.2 % (0-4); Hematocrit 32.5 % (42.0-52.0); Imm Gran Abs Auto 0.15 X10*3/uL (0.00-0.03); Imm Gran Pct Auto 1.3 % (0.0-0.4); Lymphocytes Absolute Auto 2.6 X10*3/uL (1.2-4.9); Lymphocytes Percent Auto 22.3 % (20-40); Mean Corpuscular HGB Conc 36.9 g/dl (31.0-36.0); Mean Corpuscular Hemoglobin 31.4 pg (27.0-33.0); Mean Corpuscular Volume 85.1 fL (80.0-98.0); Monocytes Absolute Auto 0.9 X10*3/uL (0.1-1.2); Monocytes Percent Auto 7.9 % (2-11); Neutrophils Absolute Auto 7.8 x10*3/uL (2.0-8.3); Platelet Count 294 X10*3/uL (160-400); Red Blood Count 3.82 X10*6/uL (4.60-5.80); Red Cell Distribution Width 12.4 % (11.0-16.0); White Blood Count 11.5 X10*3/uL (4.8-10.8)
[2022-07-15 07:25] LABS: ~Lactic Acid-LAB USE ONLY 2.7 mmol/L (0.5-2.0)
[2022-07-15 07:32] LABS: Alanine Aminotransferase 112 U/L (0-40); Albumin Level 3.4 g/dL (3.5-5.0); Alkaline Phosphatase 181 U/L (39-117); Anion Gap 20 (12-20); Aspartate Amino Transferase 171 U/L (5-37); Blood Urea Nitrogen 36 mg/dL (9-16); Carbon Dioxide 18 mmol/L (22-29); Chloride 84 mmol/L (96-108); Creatinine Clr Calc Pharmacy 33.7; Estimated Glomerular Filt Rate 18; Glucose Random 77 mg/dL (60-115); Potassium 4.3 mmol/L (3.3-5.1); Sodium 118 mmol/L (135-145); Total Protein 6.1 g/dL (6.5-8.0)
[2022-07-15 07:54] LABS: Magnesium 1.2 mg/dL (1.6-2.6)
--- NOTE | 2022-07-15 08:01 | PC.NURSE ---
SPOKE WITH DR DOWNEY ABOUT BLOOD CULTURES PRIOR TO ANTIBIOTICS, LAB ONLY HAS ONE SET, STATED WE DONT NEED THEM IF WE HAVE A SET OF CULTURES
--- NOTE | 2022-07-15 08:35 | PHA.MEDREC ---
Pharmacy Consult ? Medication Reconciliation Pharmacy has completed the medication reconciliation. Per patient, he is no longer taking verapamil 300mg. Says he takes losartan but has not been able to get the medication filled since pharmacy messed up the RX [place]
[2022-07-15] MEDS: cefEPime HCl 1 GM in 0.9 % Sodium Chloride 50 ML IV (08:44)
[2022-07-15] MEDS: 0.9 % Sodium Chloride 1,000 ML 125 ML IVCONT (08:44)
[2022-07-15 09:03] LABS: Reflex Lactate? 2 Y
[2022-07-15 09:40] LABS: ~Lactic Acid-LAB USE ONLY 3.3 mmol/L (0.5-2.0)
--- NOTE | 2022-07-15 09:59 | PC.NURSE ---
PT STATES HE WANTS TO LEAVE BECAUSE THIS IS A [facility], WE AREN'T GIVING HIM FOOD, HES BEEN HERE TO LONG AND HE HASN'T SEEN ANY RESULTS AND WE DON'T KNOW WHAT WE'RE DOING PROVIDER AWARE
[2022-07-15 10:00] VITALS: BP 105/74; PULSE 88; RESP 19; TEMP 36.9; O2SAT 96
[2022-07-15 10:08] VITALS: BP 171/71; PULSE 80; RESP 15; TEMP 37.1; O2SAT 96
--- NOTE | 2022-07-15 12:31 | CONS_ITS ---
DATE OF SERVICE: REASON FOR CONSULTATION: I was called to see this patient to assist in management of hyponatremia to summarize. HISTORY OF PRESENT ILLNESS: Michael is a 51-year-old man with a history of asthma, chronic alcohol abuse, obesity, comes in because of shortness of breath. At the time of admission, serum sodium of 118 millimoles per liter. Serum creatinine was 3.17. He has been drinking beer almost every day, he claims to drink about 12 cans a day. Over the last 4 hours, serum creatinine is staying over 118. He is on IV fluids. He is currently sitting up in the bed and continues to drink free water. This consult has been requested for management of renal insufficiency and hyponatremia. PAST MEDICAL HISTORY: Ongoing medical problems include history of anxiety, arthritis, asthma, COPD, depression, history of gout, hypercholesterolemia, hypertension, obesity, neuropathy, sciatica. PAST SURGICAL HISTORY: Hand surgery, open reduction and internal fixation, and history of bilateral knee replacement. FAMILY HISTORY: Not significant for this admission. SOCIAL HISTORY: He drinks beer up to 12 cans per day according to him. He also smokes cigarettes. He has smoked for almost 40 years. He also consumes marijuana. REVIEW OF SYSTEMS: He has no headache, nausea, vomiting. No abdominal pain or constipation. No fever. No weight loss. PHYSICAL EXAMINATION: GENERAL: Patient is a middle-aged man is obese. He is comfortable at rest. Awake and alert, not in any respiratory distress. NECK: Supple. LUNGS: With scattered rhonchi. HEART: S1, S2 heard. No gallop or rub. ABDOMEN: Obese, soft, nontender. EXTREMITIES: No significant edema. No rash. No clubbing. LABORATORY DATA: Hemoglobin 12.0, WBC 11.5, platelets 294. Sodium 118, potassium 4.3, CO2 18, BUN 36, creatinine 3.52. Baseline creatinine is 1.02. Lactic acid level was 3.7, AST 171, ALT 112, serum albumin 3.4. Urine studies not available. IMPRESSION: 51-year-old man with obesity and asthma with severe hyponatremia and acute kidney injury. 1. Acute kidney injury is mostly due to volume depletion. However, he could have progressed to acute tubular necrosis from ischemia. Obstructive uropathy should be ruled out. Without any urine studies, we cannot comment if he has any active underlying glomerulonephritis. CT abdomen done on admission showed normal-appearing kidneys without any hydronephrosis. 2. Hyponatremia. This may be due to beer potomania. Again, we need further urine studies. RECOMMENDATIONS: My recommendations include: 1. Check urine for sodium, creatinine, osmolality. 2. Check serum osmolality, TSH, and cortisol. 3. Restrict oral free water intake. 4. Check serum sodium every 2 hours to avoid rapid correction. If indeed he has beer potomania, he would have increased diuresis and free water clearance leading to rapid correction of hyponatremia. If this happens, we need to start him on D5W or even administer DDAVP to slow the correction of hyponatremia. I would hold the venlafaxine, Lasix, ibuprofen, and losartan for now. At this time, there is no absolute indication for dialysis. We will follow him closely along with the team. Michael wants to sign out AMA. I have encouraged him not to do that and to stay in the hospital to sort out his acute problems. I also discussed with the ER physician. Brian Lee MD BPA/MODL / [id number]
[2022-07-16 15:16] LABS: Osmolality Urine 150 mosm/kg (373-1093)
== END 2022-07-15 11:45 | disposition left against medical advice (07) ==
PROVIDERS: Emergency Provider Student in an Organized Health Care Education/Training Program; PCP Internal Medicine
DX: R06.00 Dyspnea, unspecified (principal); F10.288 Alcohol dependence with other alcohol-induced disorder; Y90.9 Presence of alcohol in blood, level not specified; E87.29 Other acidosis; N17.9 Acute kidney failure, unspecified; E87.1 Hypo-osmolality and hyponatremia; E83.42 Hypomagnesemia; J45.909 Unspecified asthma, uncomplicated; I10 Essential (primary) hypertension; E78.00 Pure hypercholesterolemia, unspecified; F17.210 Nicotine dependence, cigarettes, uncomplicated; F12.90 Cannabis use, unspecified, uncomplicated; Z79.899 Other long term (current) drug therapy
CPT/HCPCS: 36415; 71250; 74176; 80053; 83605; 83735; 83935; 84300; 84484; 85025; 94640; 96374; 99285; J0692

== ENCOUNTER 2023-06-21 18:08 | Outpatient (REF) | payer MEDICAID, SELFPAY | END 2023-06-21 18:09 | disposition home or self-care (01) | LOC: HO.HHCLNP 18:08 | PROVIDERS: Visit Provider Nurse Practitioner Family | DX: R30.9 Painful micturition, unspecified (principal) | CPT/HCPCS: 87086; 87088; 87186 ==

== ENCOUNTER → 2024-01-10 14:13 | Outpatient (RCR) | payer MEDICAID, SELFPAY ==
--- NOTE | 2020-08-27 10:16 | MHC.OT.OEV ---
[address] [phone] F: [phone] Occupational Therapy Evaluation Diagnosis: RIGHT INDEX FINGER PIPJ EXT LAG Date of Onset: Date of Surgery: 03/04/17 Attending Provider: DR. JAMIL Prescribed Treatment: EVAL AND VASQUEZ BARKER Follow Up Appointment: History of Current Condition: PT REPORT A R D2 PP FX REQUIRING ORIF WITH PLATE AND SCREWS REPORTS PIPJ EXT LAG AFTER SURGERY. NOT REFERRED TO OT AT HIS FOLLOW UP APPT AND NO OTHER SCHEDULED ORTHO APPOINTMENTS Significant Medical History: COPD ,HTN,OA, HANDS ,FEET, KNEES, SHOULDERS INJECTIONS AND PAIN MEDS. BACK PAIN Precautions/Contraindications: NONE Patient Goals: TO GET THE FINGER STRAIGHT Hand Dominance: Left Observations: QuickDASH Score: Prior Level of Function and Occupation Self Care, Employment, Leisure: INDEP IN ALL AREAS. OOW X 2 YRS.. APPLYING FOR DISABILITY. SEDENTARY. Living Situation, Family and/or Social Support: LIVES WITH HIS MOTHER. Current Level of Function and Occupation Self Care, Employment, Leisure: DIFFICULT TO GRAB THINGS.. IE CARRY A LAUNDRY BASKET, DOING DISHES Sleep: UNRELATED Driving: NOT DRIVING Vision: GLASSES Balance: WNL Pain Assessment Pain Score: 0 Pain Scale Used: Numeric (0 - 10) Pain Location and Description: DENIES R INDEX FINGER PAIN.. UNRELATED MCPJ PAIN B HANDS Aggravating Factors: NA Alleviating Factors: NA Skin and Soft Tissue Assessment Skin and Soft Tissue: Comments: R INDEX EXT LAG THIN WHITE SCAR LATERAL PP Nerve assessment Ulnar Nerve: Median Nerve: Radial Nerve: Comments: WNL Sensory Assessment Temperature: Light Touch: Proprioception: Vibration: Comments: WNL Edema Assessment Upper Extremity: WNL Lower Extremity: Comments: Dexterity Assessment Dexterity: Right Impaired Left Impaired Comments: FUNCTIONAL DEXTERITY TEST LEFT AND RIGHT MODERATELY FUNCTIONAL Special Tests Comments: AROM(PROM) Strength Cervical Cervical Flexion: Cervical Extension: Cervical Lateral Flexion: Cervical Rotation: Comments: Shoulder Flexion: Extension: Abduction: Internal Rotation: External Rotation: Comments: Flexion: Extension: Abduction: Internal Rotation: External Rotation: Comments: Elbow Flexion: Extension: Pronation: Supination: Comments: Flexion: Extension: Pronation: Supination: Comments: Wrist Flexion: Extension: Ulnar Deviation: Radial Deviation: Comments: Flexion: Extension: Ulnar Deviation: Radial Deviation: Comments: WNL Thumb Thumb CMC Flexion: Thumb MCP Flexion: Thumb IP Flexion: Radial Abduction: Palmar Abduction: [place] ([place] 0-10): Comments: Digits Index MCP: PIP: R 60 (10) DEG EXT.. 85 DEG FLEXION DIP: R NEUTRAL EXT...65 DEG COMPOSITE FLEXION. 25 DEG WITH PIP FLEXION BLOCK Long MCP: PIP: DIP: Ring MCP: PIP: DIP: Small MCP: PIP: DIP: Comments: Gross Grasp: R 98 LB...L 120 LB Lateral Pinch: R 23 LB....L 32 LB Two-Point Pinch: R 8 LB L 16 LB Three-Jaw Judah: R 17 LB L 19 LB Comments: Patient Education Primary Language: Czech Yarder Operator Required: No Current Knowledge: Minimal, needs reinforcement Teaching Method: Demonstration Handouts Verbal Education Needs Identified on Evaluation: Exercise How did patient/family demonstrate learning? Patient demonstrates Patient verbalizes Barriers to Learning: None Readiness for Learning: Accepting Who was educated? Patient Comments: Plan of Care Assessment: Pt IS A 49 YO MALE WITH A 3 YR HO WORSENING R INDEX PIPJ EXT LAG SINCE A PP FX REQUIRING AN ORIF ON 03/04/17. TODAY HE PRESENT WITH AN INDEX FINGER PIPJ EXT LAG ON HIS NON DOMINANT RIGHT HAND POSSIBLY DUE TO CENTRAL BAND RUPTURE WHICH WOULD REQUIRE SURGICAL REPAIR VS CONSERVATIVE TREATMENT. I AM RECOMMENDING A Pt REFERRAL TO A HAND SURGEON AT THIS TIME. STG Duration: NA Short Term Goals: NA LTG Duration: NA Casino Host Goals: NA Frequency and Duration: The patient will be seen NA Treatment Plan: RECOMMEND REFERRAL TO HAND SURGEON. Electronically Signed By: BEVERLY POLLARD OT CHT CLT Reviewed/agree with student documentation: N/A Therapist: Please sign and return to therapist, Thank you for your referral.
== END | disposition home or self-care (01) ==
LOC: HO.OT 08-05 09:04
PROVIDERS: PCP Family Medicine; Visit Provider Family Medicine
DX: M25.541 Pain in joints of right hand (principal)
CPT/HCPCS: 97165